=== PATIENT | female | born 1955 | race Caucasian/White ===

== ENCOUNTER 2020-03-19 12:08 | Outpatient (REF) | payer MEDICARE, SELFPAY | END 2020-03-19 12:09 | disposition home or self-care (01) | LOC: HO.HMGCLDS 12:08 | PROVIDERS: PCP Pediatrics; Visit Provider Internal Medicine | DX: Z20.828 Contact with and (suspected) exposure to other viral communicable diseases (principal) | CPT/HCPCS: 87635 ==

== ENCOUNTER 2020-11-16 14:06 | Outpatient (REF) | payer MEDICARE, SELFPAY ==
--- NOTE | ~2020-11-16 | MM_ITS ---
EXAMINATION: BONE DENSITOMETRY CLINICAL INDICATION: Screening for osteoporosis. COMPARISON: None (current study represents initial baseline exam). TECHNIQUE: Using a [employer]o DXA System (software version: 13.1) manufactured by [employer], dual-energy x-ray absorptiometry was performed of the lumbar spine and left hip. The images are of good technical quality. Summary results are attached. FINDINGS: AP SPINE L1-L4: BMD 0.985 g/cm2, Z-score -0.4, T-score -1.6, osteopenia. LEFT FEMUR, NECK: BMD 0.927 g/cm2, Z-score 0.5, T-score -0.8, normal. LEFT FEMUR, TOTAL: BMD 1.076 g/cm2, Z-score 1.5, T-score 0.5, normal. IDENTIFIED RISK FACTORS: Menopause, hysterectomy, rheumatoid arthritis, osteoporosis. HISTORY OF FRACTURE: None listed. MEDICATIONS: Calcium supplements or multivitamin, vitamin D. MM/XR DEXA axial skeleton IMPRESSION: 1. DIAGNOSIS: Osteopenia based on the lowest T-score value of -1.6 in the lumbar spine applying World Health Organization criteria. 2. 10-YEAR FRACTURE RISK PREDICTION, FRAX: Major osteoporotic fracture (clinical spine, forearm, hip or shoulder) 9.8%. Hip fracture 0.7%. 3. Treatment Recommendations: NOF guidelines recommend consideration for treatment in postmenopausal women and men age 50 and older presenting with the following: -A hip or vertebral (clinical or morphometric) fracture. -T-score less than or equal to -2.5 at the femoral neck or spine after appropriate evaluation to exclude secondary causes. -Low bone mass at the hip or spine and a 10-year fracture probability by FRAX of greater than or equal to 3% for hip fracture or greater than or equal to 20% for major osteoporotic fracture based on the [place] adapted WHO algorithm. 4. Other Recommendations: All treatment decisions require clinical judgment and consideration of individual patient factors, including patient preferences, comorbidities, previous drug use, risk factors not captured in the FRAX model (e.g. frailty, falls, vitamin D deficiency, increased bone turnover, interval significant decline in bone density) and possible under or overestimation of fracture risk by FRAX. Additional medical evaluation for secondary cause of low bone mineral density may be appropriate. FUTURE SCAN RECOMMENDATION: People with diagnosed cases of osteoporosis or at high risk for fracture should have regular bone mineral density tests. For patients eligible for Medicare, routine testing is allowed once every 2 years. The testing frequency can be increased to one year for patients who have rapidly progressing disease, those who are receiving or discontinuing medical therapy to restore bone mass, or have additional risk factors.
== END 2020-11-16 14:07 | disposition home or self-care (01) ==
LOC: HO.MAMMO 14:06
PROVIDERS: PCP Student in an Organized Health Care Education/Training Program; Visit Provider Student in an Organized Health Care Education/Training Program
DX: Z13.820 Encounter for screening for osteoporosis (principal); M85.80 Other specified disorders of bone density and structure, unspecified site; Z78.0 Asymptomatic menopausal state; M06.9 Rheumatoid arthritis, unspecified; Z98.890 Other specified postprocedural states; Z79.899 Other long term (current) drug therapy
CPT/HCPCS: 77080

== ENCOUNTER 2021-06-28 08:44 | Outpatient (REF) | payer MEDICARE, SELFPAY ==
--- NOTE | 2021-06-28 | PFT_ITS ---
Forced vital capacity 94%. FEV1 105%, FEV1/FVC ratio is 87. FEF 25-75 is 136% and MVV 97%. All these values are normal. No response to bronchodilator therapy was noted. Lung volumes, total lung capacity 92%. Residual volume 77%. Diffusion capacity 81%. CONCLUSION: Normal pulmonary function test and no evidence of obstructive or restrictive pulmonary disorder. MD LACHO Mathew/MODL / [id number]
== END 2021-06-28 08:45 | disposition home or self-care (01) ==
LOC: HO.RESP 08:44
PROVIDERS: Absent Provider Student in an Organized Health Care Education/Training Program; PCP Student in an Organized Health Care Education/Training Program; Visit Provider Family Medicine
DX: R05.9 Cough, unspecified (principal)
CPT/HCPCS: 94060; 94727; 94729

== ENCOUNTER 2022-04-26 11:32 | Outpatient (REF) | payer MEDICARE, SELFPAY ==
[2022-04-26 12:02] LABS: Binax Internal Control QC Valid; Binax Now Covid-19 Ag Negative (Negative)
[2022-04-26 14:10] LABS: Influenza A PCR NEGATIVE (Negative); Influenza B PCR NEGATIVE (Negative); Resp Syncy Virus RNA Qual PCR NEGATIVE (Negative); SARS COV2 PCR INHOUSE NEGATIVE (Negative)
== END 2022-04-26 11:33 | disposition home or self-care (01) ==
LOC: HO.HMGCLDS 11:32
PROVIDERS: Visit Provider Physician Assistant Medical
DX: R05.9 Cough, unspecified (principal); Z20.822 Contact with and (suspected) exposure to COVID-19
CPT/HCPCS: 0241U; 87811; C9803

== ENCOUNTER 2023-01-10 12:27 | Outpatient (AMB) | payer MEDICARE, SELFPAY ==
--- NOTE | 2023-01-10 13:57 | AM.OFFWIN_ITS ---
Intake Vital Signs 01/10/23 14:03 BP 152/80 H Blood Pressure Location Lt brachial Position Sitting Pulse 86 Pulse Source Pulse Oximeter Temp 99.8 F Temp Source Temporal Artery Scan Pulse Oximetry (%) 98 Oxygen Delivery Method Room Air Intake Visit Reasons: EST/sore throat Intake Note: pt is here for c/o sore throat Patient Tobacco Use Status: Never used Tobacco Allergies No Known Allergies Allergy (Verified 01/10/23 14:05) HPI EST/sore throat HPI Details Patient is a 67-year-old female who comes to the walk-in clinic complaining of severe sore throat for the last few days. She states that she does have allergy symptoms at baseline, and occasionally gets runny nose and postnasal drip. She uses fluticasone allergy medication as needed. She has some associated fatigue, but no nausea or vomiting, cough, shortness of breath or chest pain, weakness or dizziness, headache, anorexia, weakness, myalgias or other significant associated symptoms. No known sick contacts. She did not do home COVID test. [facility] Social History Patient Tobacco Use Status: Never used Tobacco Review of Systems Const All systems reviewed & are unremarkable except as noted in HPI and below Physical Exam Vital Signs: Last Vital Signs Temp 99.8 F 01/10/23 14:03 Pulse 86 01/10/23 14:03 BP 152/80 H 01/10/23 14:03 Pulse Ox 98 01/10/23 14:03 Oxygen Delivery Method Room Air 01/10/23 14:03 Const General: cooperative, healthy appearing, comfortable, no acute distress, alert, awake, Physically active and well groomed; No anxious, diaphoretic, intoxicated appearing or poor hygiene Nutritional Appearance: average body habitus Limitations: no limitations HEENT Head: Yes normal to inspection, Yes normocephalic and Yes atraumatic Ears: hearing grossly normal bilaterally, external ears normal, TM's normal bilaterally and EAC's normal General nose exam: Normal external nose present, Normal nares present, No nasal polyps present, Normal nasal mucous membranes and turbinates present, Normal septum present and No nasal discharge present Face and sinus: Yes normal facial exam, Yes sinuses nontender and Yes face symmetric Mouth: Normal oral and palatal mucosa present, lip normal and tongue normal Throat: Yes uvula midline, Yes abnormal tonsil (mildly erythematous bilaterally), No peritonsillar mass, No postnasal drainage, No uvular edema, No cobblestoning and Yes other (White exudate) Eyes General: appearance normal, both eyes and all related structures Neck Neck: Yes normal visual inspection and Yes lymphadenopathy Resp Effort & Inspection: normal respiratory effort and no cough Cardio Rate: regular rate Rhythm: regular rhythm Skin Other: Good color, warm and dry Psych Appearance: grossly normal Mental Status: mental status grossly normal Speech and movement: Normal speech and movement present Affect: normal affect Attitude: cooperative Thought process: Normal thought process present Insight: Good insight present (Psych) Judgement: Good judgement present (Psych) Results AMB Rapid Strep AMB Rapid Strep Negative Last Edit by Sergio Rubio CMA on 01/10/23 14 :21 Results Reviewed Results Reviewed: Laboratory Last Values Strep Scn Rapid Clinic Negative 01/10/23 14:17 Negative rapid strep. Negative rapid COVID Assessment & Plan Assessment & Plan (1) Pharyngitis: Code(s): J02.9 - Acute pharyngitis, unspecified Qualifiers: Pharyngitis/tonsillitis etiology: unspecified etiology Qualified Code(s): J02.9 - Acute pharyngitis, unspecified Plan: Likely strep pharyngitis due to erythematous and edematous pharynx with white exudates, and anterior cervical lymphadenopathy, despite negative rapid strep test and no fever. Negative rapid COVID test- patient elected to wait for results. Started patient on a course of Augmentin- she will follow up if symptoms persist or worsen. Orders: Orders [facility] Covid-19 Ag 01/10/23 Z20.822 - Contact with and (suspected) exposure to COVID-19 AMB Rapid Strep Screen 01/10/23 Z13.9 - Encounter for screening, unspecified Medications: New amoxicillin-pot clavulanate 875-125 mg 1 tab PO BID 10 tabs 0RF Coding Level of Care Code Est Pt Level 4 (18458) Diagnoses Pharyngitis J02.9 Pharyngitis/tonsillitis etiology: unspecified etiology
[2023-01-10 14:03] VITALS: BP 152/80; PULSE 86; TEMP 37.7; O2SAT 98
== END 2023-01-10 14:48 | disposition home or self-care (01) ==
PROVIDERS: PCP Student in an Organized Health Care Education/Training Program; Visit Provider Physician Assistant Medical
DX: J02.9 Acute pharyngitis, unspecified (principal)
CPT/HCPCS: 87880; 99214

== ENCOUNTER 2023-01-10 14:13 | Outpatient (REF) | payer MEDICARE, SELFPAY ==
[2023-01-10 14:40] LABS: Binax Internal Control QC Valid; Binax Now Covid-19 Ag Negative (Negative); Binax Performed by: HO.BONILM
== END 2023-01-10 14:14 | disposition home or self-care (01) ==
LOC: HO.HMGCLDS 14:13
PROVIDERS: PCP Student in an Organized Health Care Education/Training Program; Visit Provider Physician Assistant Medical
DX: Z20.822 Contact with and (suspected) exposure to COVID-19 (principal)
CPT/HCPCS: 87811; C9803

== ENCOUNTER 2023-05-14 14:07 | Outpatient (REF) | payer MEDICARE, SELFPAY | END 2023-05-14 14:08 | disposition home or self-care (01) | LOC: HO.CHCLNP 14:07 | PROVIDERS: Visit Provider Internal Medicine | DX: R10.2 Pelvic and perineal pain (principal); R31.29 Other microscopic hematuria; R35.0 Frequency of micturition | CPT/HCPCS: 87086 ==

== ENCOUNTER 2023-07-08 11:26 | Outpatient (REF) | payer MEDICARE, SELFPAY ==
[2023-07-08 14:36] LABS: MANUAL DIFF FLAG NO
[2023-07-08 14:45] LABS: Basophils Absolute Auto 0.1 X10*3/uL (0.0-0.2); Basophils Percent Auto 1.1 % (0-2); Eosinophils Absolute Auto 0.2 X10*3/uL (0.0-0.4); Eosinophils Percent Auto 2.9 % (0-4); Hematocrit 42.3 % (37.0-47.0); Hemoglobin 14.1 g/dl (12.0-16.0); Imm Gran Abs Auto 0.01 X10*3/uL (0.00-0.03); Imm Gran Pct Auto 0.2 % (0.0-0.4); Lymphocytes Absolute Auto 2.7 X10*3/uL (1.2-4.9); Lymphocytes Percent Auto 48.5 % (20-40); Mean Corpuscular HGB Conc 33.3 g/dl (31.0-35.0); Mean Corpuscular Hemoglobin 30.5 pg (27.0-33.0); Mean Corpuscular Volume 91.6 fL (80.0-98.0); Monocytes Absolute Auto 0.4 X10*3/uL (0.1-1.2); Monocytes Percent Auto 7.2 % (2-11); Neutrophils Absolute Auto 2.2 x10*3/uL (2.0-8.3); Neutrophils Percent Auto 40.1 % (45-73); Platelet Count 293 X10*3/uL (160-400); Red Blood Count 4.62 X10*6/uL (4.20-5.50); Red Cell Distribution Width 12.9 % (11.0-16.0); White Blood Count 5.5 X10*3/uL (4.8-10.8)
[2023-07-08 15:13] LABS: Alanine Aminotransferase 38 U/L (0-31); Albumin Level 4.2 g/dL (3.5-5.0); Alkaline Phosphatase 75 U/L (39-117); Anion Gap 11 (12-20); Aspartate Amino Transferase 25 U/L (5-31); Bilirubin Direct 0.2 mg/dL (0.0-0.5); Bilirubin Total 0.5 mg/dL (0.0-1.0); Blood Urea Nitrogen 14 mg/dL (9-16); Calcium 9.2 mg/dL (8.4-10.2); Carbon Dioxide 25 mmol/L (22-29); Chloride 109 mmol/L (96-108); Cholesterol 219 mg/dL (<200); Estimated Glomerular Filt Rate > 60; Glucose Random 102 mg/dL (60-115); HDL Cholesterol 61 mg/dL (>40); LDL Cholesterol Calculated 133 mg/dL (<100); Potassium 3.6 mmol/L (3.3-5.1); Sodium 141 mmol/L (135-145); Triglycerides 128 mg/dL (<150)
[2023-07-08 15:18] LABS: Thyroid Stimulating Hormone 1.99 uIU/mL (0.32-4.0); Vitamin D 25-OH Total 51.7 ng/mL (>30)
[2023-07-08 15:28] LABS: Vitamin B12 549 pg/mL (200-900)
== END 2023-07-08 11:27 | disposition home or self-care (01) ==
LOC: HO.CHCLDS 11:26
PROVIDERS: Visit Provider Student in an Organized Health Care Education/Training Program
DX: R53.83 Other fatigue (principal); E55.9 Vitamin D deficiency, unspecified; E78.5 Hyperlipidemia, unspecified
CPT/HCPCS: 36415; 80048; 80061; 80076; 82306; 82607; 84443; 85025

== ENCOUNTER 2023-08-31 14:25 | Outpatient (AMB) | payer MEDICARE, SELFPAY ==
[2023-08-31 14:27] VITALS: TEMP 36.1; O2SAT 98
--- NOTE | 2023-08-31 14:27 | AM.OFFWIN_ITS ---
Intake Vital Signs 08/31/23 14:27 Temp 97.0 F Temp Source Temporal Artery Scan Pulse Oximetry (%) 98 Oxygen Delivery Method Room Air Intake Visit Reasons: EP Sinus pressure pain (lobby) Intake Note: pt is here today for sinus pressure started 4 days Patient Tobacco Use Status: Never used Tobacco Allergies No Known Allergies Allergy (Verified 08/31/23 14:30) Do you need a note to return to daycare/school/sports/work: No HPI HPI Comments History of Present Illness Details Patient presents to the walk in for 4 days cough, congestion, itchy and watery eyes Denies fever, chest pain, shortness of breath, palpitations, syncope, weakness Denies headache, ear pain, sore throat. Has been taking OTC medications with minimal improvement. [facility] Social History Patient Tobacco Use Status: Never used Tobacco Review of Systems Const All systems reviewed & are unremarkable except as noted in HPI and below Physical Exam Vital Signs: Last Vital Signs Temp 97.0 F 08/31/23 14:27 Pulse Ox 98 08/31/23 14:27 Oxygen Delivery Method Room Air 08/31/23 14:27 General: awake, alert, oriented. Answers questions appropriately. Fully engaged in examination. Skin: warm, dry, intact HEENT: TMs intact bilaterally, no redness. Posterior pharynx without erythema or exudate. Sclera without icterus or injection. Nontender to percussion over fron antonio and maxillary sinuses Cardiac: External chest normal in appearance. Respiratory: +cough. LSCTAB. Abdomen: without gross distension. Neurological: Oriented to person, place, time and situation. Thought process intact. Psychiatric: Appropriate mood and affect. Good judgment and insight. Assessment & Plan Assessment & Plan (1) Allergic rhinitis: Code(s): J30.9 - Allergic rhinitis, unspecified Plan Cetirizine 10 mg p.o. daily Benzonatate 100mg po bid as needed Rest, drink plenty of fluids, tylenol or motrin as needed. Follow up with pcp or in clinic for any new or worsening symptoms. Medications: New cetirizine 10 mg PO DAILY 30 tabs 0RF benzonatate 100 mg PO BID PRN 20 caps 0RF cough Coding Level of Care Code Est Pt Level 3 (78897) Diagnoses Allergic rhinitis J30.9
== END 2023-08-31 15:20 | disposition home or self-care (01) ==
PROVIDERS: PCP Student in an Organized Health Care Education/Training Program; Visit Provider Registered Nurse Emergency
DX: J30.9 Allergic rhinitis, unspecified (principal)
CPT/HCPCS: 99213

== ENCOUNTER 2023-10-28 11:27 | Outpatient (REF) | payer MEDICARE, SELFPAY ==
[2023-10-28 15:15] LABS: Alanine Aminotransferase 38 U/L (0-31); Albumin Level 4.2 g/dL (3.5-5.0); Alkaline Phosphatase 68 U/L (39-117); Anion Gap 11 (12-20); Aspartate Amino Transferase 25 U/L (5-31); Bilirubin Direct 0.2 mg/dL (0.0-0.5); Bilirubin Total 0.4 mg/dL (0.0-1.0); Blood Urea Nitrogen 13 mg/dL (9-16); Calcium 9.6 mg/dL (8.4-10.2); Carbon Dioxide 26 mmol/L (22-29); Chloride 107 mmol/L (96-108); Cholesterol 209 mg/dL (<200); Estimated Glomerular Filt Rate > 60; Glucose Random 104 mg/dL (60-115); HDL Cholesterol 63 mg/dL (>40); LDL Cholesterol Calculated 125 mg/dL (<100); Potassium 3.9 mmol/L (3.3-5.1); Sodium 140 mmol/L (135-145); Total Protein 6.9 g/dL (6.5-8.0); Triglycerides 109 mg/dL (<150)
== END 2023-10-28 11:28 | disposition home or self-care (01) ==
LOC: HO.CHCLDS 11:27
PROVIDERS: Visit Provider Student in an Organized Health Care Education/Training Program
DX: E78.00 Pure hypercholesterolemia, unspecified (principal)
CPT/HCPCS: 36415; 80048; 80061; 80076

== ENCOUNTER 2024-02-18 11:16 | Outpatient (AMB) | payer MEDICARE, SELFPAY ==
--- NOTE | 2024-02-18 12:21 | MHC.OFFWIV ---
Intake Vital Signs 02/18/24 13:29 Height 5 ft 4 in Weight 178 lb BMI 30.6 BP 134/80 Blood Pressure Location Rt brachial Position Sitting Pulse 72 Pulse Source Pulse Oximeter Temp 98.3 F Temp Source Oral Pulse Oximetry (%) 97 Oxygen Delivery Method Room Air Intake Visit Reasons: EP Lt ear ringing, bubbling feeling Intake Note: pt c/o LT ear ringing, bubbling feeling. Started 2 weeks ago after flight Patient Tobacco Use Status: Never used Tobacco Allergies No Known Allergies Allergy (Verified 02/18/24 13:30) Do you need a note to return to daycare/school/sports/work: No HPI EP Lt ear ringing, bubbling feeling HPI Details This note is constructed using voice recognition software. While every effort has been made to ensure accuracy, soldering machine operator errors may have been included. The patient is a 68 year old female who presents to the clinic today with bubbling sensation in her left ear. She notes a longstanding history of allergies, and has not yet treated her allergies this season. She notes that typically when she uses a nasal spray or an allergy pill it does help. She wanted to make sure that her ear did not have an infection or any other problem given that she had this bubbling sensation which is slightly different from the normal allergy symptoms she gets. She denies fever, chills, cough, shortness of breath, difficulty hearing, and pain. [facility] Social History Patient Tobacco Use Status: Never used Tobacco Review of Systems Const All systems reviewed & are unremarkable except as noted in HPI and below Physical Exam Vital Signs: Last Vital Signs Temp 98.3 F 02/18/24 13:29 Pulse 72 02/18/24 13:29 BP 134/80 02/18/24 13:29 Pulse Ox 97 02/18/24 13:29 Oxygen Delivery Method Room Air 02/18/24 13:29 BMI result Body Mass Index 30.6 Const General: cooperative, healthy appearing, comfortable and no acute distress Orientation/consciousness: patient oriented x3 Limitations: no limitations HEENT Head: Yes normal to inspection Ears: hearing grossly normal bilaterally, external ears normal and TM abnormal retracted General nose exam: Normal external nose present, No nasal discharge present and Abnormal mucous membranes and turbinates present boggy and pale Face and sinus: Yes normal facial exam and Yes sinuses nontender Mouth: Normal oral and palatal mucosa present and moist mucous membranes Throat: Yes tonsils normal, Yes uvula midline, Yes posterior oropharynx abnormal (Erythema), Yes postnasal drainage and Yes cobblestoning Eyes General: appearance normal, both eyes and all related structures Neck Neck: Yes normal visual inspection Resp Effort & Inspection: normal respiratory effort, able to speak in complete sentences, Actively coughing, no respiratory distress, not tachypneic, no tripod positioning and no use of accessory muscles Auscultation: clear to auscultation bilaterally Cardio Rate: regular rate Rhythm: regular rhythm Heart sounds: normal S1 and S2 Skin General skin exam: no rashes or lesions noted Neuro General: patient oriented x3 Extrem General: Yes normal to inspection and Yes no clubbing, cyanosis or edema Assessment & Plan Assessment & Plan (1) Allergic rhinitis: Code(s): J30.9 - Allergic rhinitis, unspecified Qualifiers: Allergic rhinitis trigger: unspecified Allergic rhinitis seasonality: unspecified Qualified Code(s): J30.9 - Allergic rhinitis, unspecified Plan: Supportive measures encouraged and reviewed. Advised patient to try a Flonase nasal spray and second-generation antihistamine such as Zyrtec, Claritin, Kaila or similar. Advised consideration of sinus rinse if needed. Advised patient to follow up with primary care provider with worsening or failure to resolve. Plan See above for full details and plan. Coding Level of Care Code Est Pt Level 3 (20301) Diagnoses Allergic rhinitis, unspecified seasonality, unspecified trigger J30.9 Allergic rhinitis trigger: unspecified Allergic rhinitis seasonality: unspecified
[2024-02-18 13:29] VITALS: BP 134/80; PULSE 72; TEMP 36.8; O2SAT 97; BMI 30.6
== END 2024-02-18 14:24 | disposition home or self-care (01) ==
PROVIDERS: PCP Student in an Organized Health Care Education/Training Program; Visit Provider Registered Nurse
DX: J30.9 Allergic rhinitis, unspecified (principal)

== ENCOUNTER → 2024-02-18 11:16 | Outpatient (BNVA) | payer MEDICARE, SELFPAY | PROVIDERS: PCP Student in an Organized Health Care Education/Training Program | DX: J30.9 Allergic rhinitis, unspecified (principal) | CPT/HCPCS: 99212 ==

== ENCOUNTER 2024-05-03 10:35 | Outpatient (REF) | payer MEDICARE, SELFPAY ==
[2024-05-03 14:27] LABS: Alanine Aminotransferase 46 U/L (0-31); Albumin Level 4.3 g/dL (3.5-5.0); Alkaline Phosphatase 65 U/L (39-117); Anion Gap 9 (12-20); Aspartate Amino Transferase 30 U/L (5-31); Bilirubin Direct 0.2 mg/dL (0.0-0.5); Bilirubin Total 0.6 mg/dL (0.0-1.0); Blood Urea Nitrogen 16 mg/dL (9-16); Calcium 9.6 mg/dL (8.4-10.2); Carbon Dioxide 28 mmol/L (22-29); Chloride 106 mmol/L (96-108); Cholesterol 213 mg/dL (<200); Estimated Glomerular Filt Rate > 60; Glucose Random 118 mg/dL (60-115); HDL Cholesterol 58 mg/dL (>40); LDL Cholesterol Calculated 134 mg/dL (<100); Sodium 139 mmol/L (135-145); Total Protein 6.9 g/dL (6.5-8.0); Triglycerides 108 mg/dL (<150)
== END 2024-05-03 10:36 | disposition home or self-care (01) ==
LOC: HO.CHCLDS 10:35
PROVIDERS: Visit Provider Student in an Organized Health Care Education/Training Program
DX: E78.00 Pure hypercholesterolemia, unspecified (principal)
CPT/HCPCS: 36415; 80048; 80061; 80076

== ENCOUNTER 2024-05-20 11:04 | Outpatient (AMB) | payer MEDICARE, SELFPAY ==
--- NOTE | 2024-05-20 11:28 | MHC.OFFWIV ---
Intake Vital Signs 05/20/24 11:29 Weight 180 lb 6 oz BP 128/80 Blood Pressure Location Rt brachial Position Sitting Pulse 82 Pulse Source Pulse Oximeter Pulse Oximetry (%) 98 Oxygen Delivery Method Room Air Intake Visit Reasons: EP-lt leg swollen Intake Note: Patient here for left leg pain, she states she fell out of a chair yesterday while taking out decorations. Patient Tobacco Use Status: Never used Tobacco Allergies No Known Allergies Allergy (Verified 05/20/24 11:30) Do you need a note to return to daycare/school/sports/work: No HPI HPI Comments History of Present Illness Details History of Present Illness The patient is a 68-year-old female presenting with concerns following a fall. The incident occurred yesterday when the patient fell out of her chair while reaching for items and made contact with a stove, resulting in a contusion. The patient reports notable bruising on the site of impact, which she describes as a pretty good bruise. She applied ice immediately, which helped reduce the swelling by today. The patient denies any head injury or loss of consciousness during the fall and confirms that she is not taking any blood thinners. She was able to ambulate immediately after the fall and describes the pain as manageable, reporting that it alleviates further with Tylenol. The swelling initially increased upon standing but diminished following the application of ice. She denies any current ankle pain and mentions that she's been using a warm cloth and heating pad for relief. The patient sought reassurance regarding potential injuries and inquired about the use of anti-inflammatory medication. Physical Exam General: Cooperative, healthy appearing, comfortable, no acute distress and well developed Orientation: Patient oriented x3 Limitations: No limitations Head: Normal to inspection Ears: Hearing grossly normal bilaterally Nose: Normal external nose present Face and sinus: Normal facial exam Eyes: Appearance normal, both eyes and all related structures Neck: Normal visual inspection and Yes full ROM Respiratory: Normal respiratory effort and able to speak in complete sentences. Skin: Bruise noted on the leg, no rashes or other lesions noted Neuro: Patient oriented x3 Extremities: Normal to inspection, left lower extremity, no TTP along tib/fib, 6cm x 4cm area of ecchymosis noted, normal gait PFSH Social History Patient Tobacco Use Status: Never used Tobacco Review of Systems Const All systems reviewed & are unremarkable except as noted in HPI and below Physical Exam Vital Signs: Last Vital Signs Pulse 82 05/20/24 11:29 BP 128/80 05/20/24 11:29 Pulse Ox 98 05/20/24 11:29 Oxygen Delivery Method Room Air 05/20/24 11:29 Assessment & Plan Assessment & Plan (1) Traumatic ecchymosis of left lower leg: Code(s): S80.12XA - Contusion of left lower leg, initial encounter Qualifiers: Encounter type: initial encounter Qualified Code(s): S80.12XA - Contusion of left lower leg, initial encounter Plan: - Recommend continued use of cold compress to manage swelling. - Advise the use of Aleve naproxen as an anti-inflammatory agent. If opting for Advil ibuprofen, instruct patient to take 600 mg every six hours, ensuring the tablets are 200 mg strength. - Encourage the application of warm compresses to assist with bruise absorption over time. - Suggest using compression wraps to aid in swelling reduction, as patient expressed interest. Lucas wrapped her lower leg for her. - Reassure that bruising is likely to take several weeks to resolve and continue monitoring for improvement. Patient was informed and verbally consented to the use of an ambient scribe for clinic note documentation during this visit. Coding Level of Care Code New Pt Level 3 (54379) Diagnoses Traumatic ecchymosis of left lower leg, initial encounter S80.12XA Encounter type: initial encounter
[2024-05-20 11:29] VITALS: BP 128/80; PULSE 82; O2SAT 98
== END 2024-05-20 11:58 | disposition home or self-care (01) ==
PROVIDERS: PCP Student in an Organized Health Care Education/Training Program; Visit Provider Physician Assistant
DX: S80.12XA Contusion of left lower leg, initial encounter (principal)

== ENCOUNTER → 2024-05-20 11:04 | Outpatient (BNVA) | payer MEDICARE, SELFPAY | PROVIDERS: PCP Student in an Organized Health Care Education/Training Program; Visit Provider Physician Assistant | DX: S80.12XA Contusion of left lower leg, initial encounter (principal); W07.XXXA Fall from chair, initial encounter; Y93.9 Activity, unspecified; Y92.9 Unspecified place or not applicable; Y99.9 Unspecified external cause status | CPT/HCPCS: 99202 ==

== ENCOUNTER 2024-05-30 11:28 | Outpatient (AMB) | payer MEDICARE, SELFPAY ==
--- NOTE | 2024-05-30 13:38 | MHC.OFFWIV ---
Intake Vital Signs 05/30/24 13:41 Height 5 ft 4 in Weight 182 lb BMI 31.2 BP 122/78 Blood Pressure Location Lt brachial Position Sitting Pulse 81 Pulse Source Pulse Oximeter Pulse Oximetry (%) 98 Oxygen Delivery Method Room Air Intake Visit Reasons: EP-lt leg lump [phone] Intake Note: Patient is here to follow up on her left leg bruising,swelling and hard. Patient Tobacco Use Status: Never used Tobacco Allergies No Known Allergies Allergy (Verified 05/30/24 13:42) Do you need a note to return to daycare/school/sports/work: No HPI EP-lt leg lump [phone] HPI Details This note is constructed using voice recognition software. While every effort has been made to ensure accuracy, cement despatch operator errors may have been included. The patient is a 68 year old female who presents to the clinic today with left leg bruising. She was last seen in the clinic 05/20/2024 after a fall with ecchymosis to the left lower extremity. She reports that the bruising persists and she has a lump, and wanted to make sure that this was safe for her to go dancing tomorrow at a new [employer]. She denies any new symptoms such as pain, difficulty walking. She notes that there was swelling to the leg which has completely resolved. [facility] Social History Patient Tobacco Use Status: Never used Tobacco Review of Systems Const All systems reviewed & are unremarkable except as noted in HPI and below Physical Exam Vital Signs: Last Vital Signs Pulse 81 05/30/24 13:41 BP 122/78 05/30/24 13:41 Pulse Ox 98 05/30/24 13:41 Oxygen Delivery Method Room Air 05/30/24 13:41 BMI result Body Mass Index 31.2 Const General: cooperative, healthy appearing, comfortable, no acute distress and well developed Orientation/consciousness: patient oriented x3 Limitations: no limitations Resp Effort & Inspection: normal respiratory effort and able to speak in complete sentences Skin General skin exam: no rashes or lesions noted Neuro General: patient oriented x3 Extrem Other: Left lower extremity echymosis in large area covering anterior LLE with hematoma. Ankle, knee FROM. No areas TTP, no edema. Distal neurovascular exam intact. General: Yes normal to inspection Assessment & Plan Assessment & Plan (1) Traumatic ecchymosis of left lower leg: Code(s): S80.12XA - Contusion of left lower leg, initial encounter Qualifiers: Encounter type: initial encounter Qualified Code(s): S80.12XA - Contusion of left lower leg, initial encounter Plan: Warm compresses recommended to help with absorption of ecchymosis. Reassured patient that she will likely continue to see symptoms for the next several weeks to months based on the extent of the ecchymosis. Advised patient that she should proceed with dancing, and should she develop any concerning symptoms she should rest. Plan See above for full details and plan. Coding Level of Care Code Est Pt Level 3 (20366) Diagnoses Traumatic ecchymosis of left lower leg, initial encounter S80.12XA Encounter type: initial encounter
[2024-05-30 13:41] VITALS: BP 122/78; PULSE 81; O2SAT 98; BMI 31.2
== END 2024-05-30 14:00 | disposition home or self-care (01) ==
PROVIDERS: PCP Student in an Organized Health Care Education/Training Program; Visit Provider Registered Nurse
DX: S80.12XA Contusion of left lower leg, initial encounter (principal)

== ENCOUNTER → 2024-05-30 11:28 | Outpatient (BNVA) | payer MEDICARE, SELFPAY | PROVIDERS: PCP Student in an Organized Health Care Education/Training Program; Visit Provider Registered Nurse | DX: S80.12XA Contusion of left lower leg, initial encounter (principal) | CPT/HCPCS: 99212 ==

== ENCOUNTER 2025-02-17 15:37 | Outpatient (REF) | payer MEDICARE, SELFPAY ==
--- OUTSIDE RECORDS SUMMARY | 2025-02-17 15:30 | XMS_ITS | Encounter Summary ---
Author Organization [employer] Address [address] [facility] [address] [place] [address] Care Team Providers Care Sleeve Machine Tender Name Role Phone Emilie Angel MD Primary Care Provider [phone] Encounter Details Date Type Department Care Team ([facility] st Contact Info) Description 02/17/2025 3:30 PM EDT Office Visit [facility] PEDS [address] [place], [place] [phone] Se Paris MD [address] [place], [place] [phone] Senile purpura (CMS/HCC) (Primary Dx) Social History Tobacco Use Types Packs/Day Years Used Date Smoking Tobacco: Never Smokeless Tobacco: Never Alcohol Use Standard Drinks/Week Comments Never 0 (1 standard drink = 0.6 oz pur e alcohol) Housing Stability Answer Date Recorded What is your housing situation today? I have awa sing 10/16/[address] you li [...] the past 12 months, has t he [employer], oil or water company threatened to shut [...] 3:03 PM EDT documented in this encounter Plan of Treatment Scheduled Orders Name Type Priority Associated Diagnoses Orde r Schedule CBC auto differential Lab Routine Senile purpura (CMS/HCC) Expected: 02/17/2025 (Approximate), Expires: 02/17/2026 Prothrombin Time-INR Lab Routine Senile purpura (CMS/HCC) Expected: 02/17/2025, Expires: 02/17/2026 Hepatic Function Panel Lab Routine Senile purpura (CMS/HCC) Expected: 02/17/2025 (Approximate), Expires: 02/17/2026 documented as of this encounter Visit Diagnoses Diagnosis Senile purpura (CMS/HCC)- Primary Other nonthrombocytopenic purpuras documented in this encounter Care Teams Sleeve Machine Tender Relationship Specialty Start Date End Date Emilie Angel MD [address] [place] [phone] PCP - General Family Medicine 08/26/19 documented as of this encounter
--- OUTSIDE RECORDS SUMMARY | 2025-02-17 15:42 | XMS_ITS | Clinical Summary ---
Author Organization [employer] Address [address] [facility] 7t [place] [address] Care Team Providers Care Forestry Engineer Name Role Phone Emilie Angel MD Primary Care Provider [phone] Allergies Active Allergy Reactions Criticality Noted Date Comments Pollen Extract 09/04/2023 Medications omeprazole (PriLOSEC) [address] capsuleMacieicamaurice ns:Gastroesophag eal reflux disease without esophagitis TAKE 1 CAPSULE BY MOUTH EVERY DAY BEFORE A MEAL 90 capsule 1 07/15/2022 Active Blood Pressure kitIndications:B lood pressure check To check the BP daily 1 kit 01/14/2023 Active loratadine (Claritin) 10 MG tablet TAKE 1 TABLET BY MOUTH EVERY DAY IN THE MORNING 90 tablet 09/29/2023 Active hydrOXYzine HCl (Atarax) 10 MG tablet Take 1 tablet (10 mg) by mouth every 6 (six) hours if needed for anxiety. 90 tablet 1 05/03/2024 Active cholecalciferol (Vitamin D-3) 25 MCG (1000 UT) capsule Take 1 capsule (25 mcg) by mouth Once per day. 30 capsule 11 05/03/2024 05/03/20 25 Active simvastatin (Zocor) 20 MG tabletIndication s:Hypercholester emia TAKE 1 TABLET BY MOUTH EVERY DAY 90 tablet 5 05/03/2024 Active hydroCHLOROthiaz carlin (HYDRODiuril) 25 MG tablet Take 1 tablet (25 mg) by mouth Once per day. 30 tablet 11 09/27/2024 09/28/19 26 Active sertraline (Zoloft) 25 MG tablet Take 1 tablet (25 mg) by mouth Once per day. 30 tablet 11 09/27/2024 09/28/19 26 Active celecoxib (CeleBREX) 50 MG capsule TAKE 1 CAPSULE BY MOUTH 2 TIMES DAILY 60 capsule 12/27/2024 Active Active Problems Problem Noted Date Diagnosed Date Obesity 09/04/2023 Assessment & Plan (09/05/2023 1:55 AM EDT): Discussed calorie deficit, recommended reduction of 20-30% of maintenance calories; probation officer referral offered. Recommended to decrease soda and sugary beverage consumption. Recommended at least 20 g per meal of protein to assist with satiety. Recommended at least 150 min/week of moderate intensity exercise. Patient would like a referral to Sanitarian Aide Bilateral impacted cerumen 09/04/2023 Assessment & Plan (09/04/2023 12:59 PM EDT): Will send debrox gtt and will schedule appt with nursing for lavage. Hyperlipidemia 11/26/2022 Malignant neoplasm of upper-outer quadrant of fe male breast 07/15/2010 Resolved Problems Problem Noted Date Diagnosed Date Resolved Date Upper respiratory tract infection 09/04/2023 05/03/2024 Assessment & Plan (09/04/2023 12:59 PM EDT): Will send trial of loratidine. Encounters Date Type Department Care Team Description 02/17/2025 3:30 PM EDT Office Visit [facility] [address] [place] [address] Se Paris MD Senile purpura ([facility]/HCC) (Primary Dx) 02/17/2025 Travel 02/13/2025 Telephone [facility] [address] [place] [address] Emilie Angel MD Nurse Triage 12/26/2024 Refill [facility] [address] [place] [address] Emilie Angel MD 12/22/2024 Telephone [facility] [address] [place] [address] Emilie Angel MD Hypertension 12/15/2024 Telephone [facility] [address] [place] [address] Emilie Angel MD 12/08/2024 2:00 PM EDT Clinical Support [facility] [address] [place] [address] Shahla Drake RN Obesity due to excess calories without serious comorbidity, unspecified class [E66.09] 12/08/2024 Travel 11/29/[address] [facility] MED [facility] PEDS [address] [facility] [place] [address] Emilie Angel MD 11/24/[address] [facility] [address] [place] [address] Emilie Agnel MD from Last 3 Months Immunizations Immunization Administration Dates Next Due INFLUENZA VACCINE QUADRIVALE NT RECOMBINANT PRESERVATIVE FREE RIV4 02/24/2020 Influenza Injectable Quadriv alant Preservative Free IIV4 MDCK 02/20/2017 Influenza Quadrivalent Adjuvanted 03/13/2022 Influenza injectable quadrivalent preservative f ree 04/05/2018 Influenza, IIV3, injectable 03/24/2016, 4 Pneumococcal Conjugate PCV 13 09/20/2021 Td (adult), unspecified 05/01/2004 Tdap 10/28/2023,10/01/2012 Zoster, live 07/18/2015 Social History Tobacco Use Types Packs/Day Years Used Date Smoking Tobacco: Never Smokeless Tobacco: Never Tobacco Cessation:Counseling Given: Not Answered Alcohol Use Standard Drinks/Week Comments Never 0 (1 standard drink = 0.6 oz pur e alcohol) Housing Stability Answer Date Recorded What is your housing situation today? I have awa kahn 10/16/[address] you li [...] Orientation Straight 03/31/2022 10 :36 AM EDT Last Filed Vital Signs Vital Sign Reading [...] Mass Index 30.65 02/17/2025 3:03 PM EDT Plan of Treatment Health Maintenance Due Date Last Done Comments CT Colonography 1954 Colonoscopy 1954 Depression Screening 1954 FIT 1954 Sigmoidoscopy 1954 Zoster Vaccines (2 of 3) 09/12/2015 07/18/2015 Pneumococcal Vaccine: 50+ Years (2 of 2 - PPSV23) 09/20/2022 09/20/2021 FOBT 11/09/2024 11/10/2023 COVID-19 Vaccine (4 - season) 2025 03/13/2022, 07/26/2020, 07/05/2020 Influenza Vaccine (#1) 2025 , 02/24/2020, 04/05/2018, Additional history exists Mammogram 04/19/2025 04/19/2024, 04/01, 11/16/2020 Alcohol/Substance Use Screening 09/27/2025 09/27/2024 SDOH Screening 09/27/2025 09/27/2024 Tobacco Screening 09/27/2025 09/27/2024 Colorectal Cancer Screening 11/09/2026 FIT DNA/Cologuard 11/09/2026 11/10/2023 Lipid Panel 05/03/2029 05/03/2024, 09/30, 07/08/2023, Additional history exists RSV Patients and Patients Aged 60 years or older (1 - 1-dose 75+ series) 2029 DTaP/Tdap/Td Vaccines (3 - Td or Tdap) 10/27/2033 10/28/2023, 10/01/2012, 05/01/2004 Hepatitis C Screening Completed 11/26/2022, 021 HIB Vaccines Aged Out No longer eligi ble based on patient's age to complete this topic HPV Vaccines Aged Out No longer eligi ble based on patient's age to complete this topic Hepatitis A Vaccines Aged Out No long er eligible based on patient's age to complete this topic Hepatitis B Vaccines Aged Out No long er eligible based on patient's age to complete this topic IPV Vaccines Aged Out No longer eligi ble based on patient's age to complete this topic Meningococcal B Vaccine Aged Out No l onger eligible based on patient's age to complete this topic Meningococcal Vaccine Aged Out No ana sena eligible based on patient's age to complete this topic RSV under 20 months Aged Out No longe r eligible based on patient's age to complete this topic Rotavirus Vaccines Aged Out No longer eligible based on patient's age to complete this topic Procedures Procedure Name Priority Date/Time Associated Diagnosis Comments LIPID PANEL, STANDARD Routine 05/03/2024 10:37 AM EST Hypercholesteremia HM MAMMOGRAPHY Routine 04/19/2024 9:25 AM EST LAB COLOGUARD COLON CANCER SCREEN Routine 11/10/2023 11:30 AM EDT Encounter for screening for malignant neoplasm of colon HEPATITIS C AB W/REFL TO HCV RNA, QN, PCR Routine 11/26/2022 10:23 AM EDT PE (physical exam), annual from Last 3 Months or Most Recently Relevant to Health Maintenance Results * (ABNORMAL) Lipid Panel, Standard (05/03/2024 10:37 AM EST) Triglycerides 108 <150 mg/dL [facility] Comment:Desirable Triglyceri de: less than 150 mg/dLBorderline High Triglyceride 150-199 mg/dLHigh Triglyceride: 200-499 mg/dLVery High Triglyceride: greater than or equal to 5OO mg/dL Cholesterol 213(H) <200 mg/dL [facility] Comment:Desirable Cholestero l: less than 200 mg/dLBorderline High Cholesterol: 200-239 mg/dLHigh Cholesterol: greater than 239 mg/dL LDL Cholesterol Calculated 134(H) <100 mg/dL [facility] Comment:Desirable LDL: less than 100 mg/dLNear Optimal/Above Optimal LDL: 110- 129 mg/dLBorderline High LDL: 130-159 mg/dLHigh LDL: 160-189 mg/dLVery High LDL: greater than or equal to 190 mg/dL HDL Cholesterol 58 >40 mg/dL [facility] Comment:Desirable HDL: great er than 40 mg/dL Note: This HDL assay may give artificially low results in patients with liver disease. Blood Venous blood specimen / Unknown 05/03/2024 10:37 AM EST 05/03/2024 1:35 PM EST Emilie Angel MD LAB BLOOD ORDERABLES Final Resul t [facility] [address] [place] [phone] * Hm Mammography (04/19/2024 9:25 AM EST) Anatomical Region Laterality Modality Other Sean Provider HEALTH MAINTENANCE Final Result * Cologuard?? colon cancer screening (11/10/2023 11:30 AM EDT) Cologuard Result Negative Negative 11/13/19 24 6:15 PM EDT [facility] (CLIA #:[id number]) Comment: NEGATIVE TEST RESULT. A negative Cologuard result indicates a low likelihood that a colorectal cancer (CRC) or advanced adenoma (adenomatous polyps with more advanced pre-malignant features) is present. The chance that a person with a negative Cologuard test has a colorectal cancer is less than 1 in 1500 (negative predictive value >99.9%) or has an advanced adenoma is less than 5.3% (negative predictive value 94.7%). These data are based on a prospective cross-sectional study of 10,000 individuals at average risk for colorectal cancer who were screened with both Cologuard and colonoscopy. (Sandy Peoples. et al, N Engl J Med 2014;370(14):4867-7983) The normal value (reference range) for this assay is negative. COLOGUARD RE-SCREENING RECOMMENDATION: Periodic colorectal cancer screening is an important part of preventive healthcare for asymptomatic individuals at average risk for colorectal cancer. Following a negative Cologuard result, the [place] [employer] and U.S. Multi-Society Task Force screening guidelines recommend a Cologuard re-screening interval of 3 years. References: [place] [employer] Guideline for Colorectal Cancer Screening: https://www.cancer.org/cancer/yuzve-frvfxt-twpghr/rrzxtwayd-oumgexvjy-lnwfonn/ac s-rec ommendations.html.; Rafal QUIJANO, Abraham PEREZ, Estela VieraK, Colorectal Cancer Screening: Recommendations for Physicians and Patients from the U.S. Multi-Society Task Force on Colorectal Cancer Screening , Am J Gastroenterology 2017; 112:4302-2381. TEST DESCRIPTION: Composite algorithmic analysis of stool DNA-biomarkers with hemoglobin immunoassay. Quantitative values of individual biomarkers are not reportable and are not associated with individual biomarker result reference ranges. Cologuard is intended for colorectal cancer screening of adults of either sex, 45 years or older, who are at average-risk for colorectal cancer (CRC). Cologuard has been approved for use by the U.S. FDA. The performance of Cologuard was established in a cross sectional study of average-risk adults aged 50-84. Cologuard performance in patients ages 45 to 49 years was estimated by sub-group analysis of near-age groups. Colonoscopies performed for a positive result may find as the most clinically significant lesion: colorectal cancer [4.0%], advanced adenoma (including sessile serrated polyps greater than or equal to 1cm diameter) [20%] or non- advanced adenoma [31%]; or no colorectal neoplasia [45%]. These estimates are derived from a prospective cross-sectional screening study of 10,000 individuals at average risk for colorectal cancer who were screened with both Cologuard and colonoscopy. (Sandy Neely et al, N Engl J Med 2014;370(14):2988-9200.) Cologuard may produce a false negative or false positive result (no colorectal cancer or precancerous polyp present at colonoscopy follow up). A negative Cologuard test result does not guarantee the absence of CRC or advanced adenoma (pre-cancer). The current Cologuard screening interval is every 3 years. ([place] [employer] and U.S. Multi-Society Task Force). Cologuard performance data in a 10,000 patient pivotal study using colonoscopy as the reference method can be accessed at the following location: www.G-cluster/results. Additional description of the Cologuard test process, warnings and precautions can be found at www.[employer] Technology[employer].com. Stool specimen (specimen) 11/10/2023 11:30 AM EDT 11/11/2023 11:31 AM EDT Emilie Angel MD LAB MOLECULAR DIAGNOSTICS ORDERA BLES Final Result [facility] (CLIA #:[id number]) [place] [address] [place] [address], * Hepatitis C Antibody with Reflex to HCV, RNA, Quantitative, Real-Time PCR (11/26/2022 10:23 AM EDT) Hepatitis C Antibody NON-REACT AMANDEEP NON-REACT AMANDEEP [facility] Comment: HCV antibody was non-reactive. There is no laboratory evidence of HCV infection. In most cases, no further action is required. However, if recent HCV exposure is suspected, a test for HCV RNA (test code 59554) is suggested. For additional information please refer to http://education.[employer].Gaatu/faq/GDZ41q2 (This link is being provided for informational/ educational purposes only.) Blood Venous blood specimen / Unknown 11/26/2022 10:23 AM EDT 11/26/2022 10:24 AM EDT Narrative [facility] - 11/28/2022 10:14 PM EDT FASTING:NO FASTING: NO us Emilie Angel MD LAB BLOOD ORDERABLES Final Resul t [facility] [address], [place] [address] [facility] [address] [place] [address] from Last 3 Months or Most Recently Relevant to Health Maintenance Insurance [facility] MEDICARE ADVANTAGE HMO Care Teams Forestry Engineer Relationship Specialty Start Date End Date Emilie Angel MD [address] [place] [address] PCP - General Family Medicine 08/26/19
--- OUTSIDE RECORDS SUMMARY | 2025-02-17 15:42 | XMS_ITS | Encounter Summary ---
Author Organization [employer] Address [address] [facility] 7t [place] [address] Care Team Providers Care Cotton Classer Aide Name Role Phone Emilie Angel MD Primary Care Provider [phone] Reason for Visit * Reason Onset Date Comments Blood pressure kit 01/13/2023 Encounter Details Date Type Department Care Team ([facility] st Contact Info) Description 01/13/2023 Telephone [facility] [address] [place] [address] Emilie Angel MD [address] [place] [address] [phone] Blood pressure kit Social History Tobacco Use Types Packs/Day Years Used Date Smoking Tobacco: Never Smokeless Tobacco: Never Comments Unknown Sex and Gender Information Value Date Recorded Sex Assigned at Female 03/31/2022 10:36 AM EDT Legal Sex Female 10:36 AM EDT Gender Identity Female 03/31/2022 10:36 AM EDT Sexual Orientation Straight 03/31/2022 10 :36 AM EDT documented as of this encounter Miscellaneous Notes * Telephone Encounter - Drake Rodriguez RN - 01/13/2023 2:06 PM EDT Pt of Dr. Angel who requested a BP machine. Please send BP kit to our pharmacy here at [facility]. Thanks. * Telephone Encounter - Danielle Jan - 01/13/2023 2:01 PM EDT Tc from patient requesting the status of blood pressure kit talked about in the last appt on 01/01/23. documented in this encounter Plan of Treatment Not on file documented as of this encounter Visit Diagnoses Not on filedocumented in this encounter Care Teams Cotton Classer Aide Relationship Specialty Start Date End Date Emilie Angel MD [address] [place] [phone] PCP - General Family Medicine 08/26/19 documented as of this encounter
--- OUTSIDE RECORDS SUMMARY | 2025-02-17 15:42 | XMS_ITS | Encounter Summary ---
Author Organization [employer] Address [address] [facility] 7t [place] [address] Care Team Providers Care Grinding Machine Operator Name Role Phone Emilie Angel MD Primary Care Provider [phone] Encounter Details Date Type Department Care Team ([facility] st Contact Info) Description 05/14/2023 Orders Only [facility] PEDS [address] [place], [place] [phone] Se Paris MD [address] [place] [address] Social History Tobacco Use Types Packs/Day Years Used Date Smoking Tobacco: Never Smokeless Tobacco: Never Comments Unknown Sex and Gender Information Value Date Recorded Sex Assigned at Female 03/31/2022 10:36 AM EDT Legal Sex Female 10:36 AM EDT Gender Identity Female 03/31/2022 10:36 AM EDT Sexual Orientation Straight 03/31/2022 10 :36 AM EDT documented as of this encounter Plan of Treatment Not on file documented as of this encounter Procedures Procedure Name Priority Date/Time Associated Diagnosis Comments CULTURE, URINE, ROUTINE Routine 05/14/2023 12:00 AM EST documented in this encounter Results * Culture, Urine, Routine (05/14/2023 12:00 AM EST) Urine Urine specimen obtained by clean catch procedure / Unknown 05/14/2023 05/14/2023 Comment:[facility] - 05/16/2023 12:48 PM EST Urine Culture Report Result Urine Culture > 100,000 cfu/ml Urine Culture Mixed bacterial khadar characteristic of Urine Culture urogenital contamination. Specimen Source: Urine clean catch us Se Paris MD LAB MICROBIOLOGY - GENERAL ORDERABLES Final Result [facility] [address] [place] [phone] documented in this encounter Visit Diagnoses Not on filedocumented in this encounter Care Teams Grinding Machine Operator Relationship Specialty Start Date End Date Emilie Angel MD [address] [place] [phone] PCP - General Family Medicine 08/26/19 documented as of this encounter
--- OUTSIDE RECORDS SUMMARY | 2025-02-17 15:42 | XMS_ITS | Encounter Summary ---
Author Organization [employer] Address [address] [facility] 7t [place] [address] Care Team Providers Care Laborer Brush Clearing Name Role Phone Emilie Angel MD Primary Care Provider [phone] Reason for Visit * Reason Onset Date Comments Call Back Request 07/06/2023 Encounter Details Date Type Department Care Team ([facility] st Contact Info) Description 07/06/2023 Telephone [facility] MEDIC[facility] [address] [place] [address] Emilie Angel MD [address] [place] [address] [phone] Call Back Request Social History Tobacco Use Types Packs/Day Years [...] encounter Miscellaneous Notes * Telephone Encounter - Emilie Angel MD - 07/07/2023 9:38 AM EST Spoke to pt in detail. Batsheva Sigala is feeling tired .Labs ordered today. * Telephone Encounter - Corky Neptali - 07/06/2023 11:16 AM EST Tc from patient requesting a call back from the provider and would only like to speak with PCP about health narrative writer did confirm there is no concerns at the moment documented in this encounter Plan of Treatment Not on file documented as of this encounter Visit Diagnoses Not on filedocumented in this encounter Care Teams Laborer Brush Clearing Relationship Specialty Start Date End Date Emilie Angel MD [address] [place] [phone] PCP - General Family Medicine 08/26/19 documented as of this encounter
--- OUTSIDE RECORDS SUMMARY | 2025-02-17 15:42 | XMS_ITS | Encounter Summary ---
Author Organization [employer] Address [address] [facility] 7t [place] [address] Care Team Providers Care Washer And Capper Machine Operator Name Role Phone Emilie Angel MD Primary Care Provider [phone] Encounter Details Date Type Department Care Team ([facility] st Contact Info) Description 01/14/2023 Orders Only [facility] MED & PEDS [address] [place], [place] [phone] Se Paris MD [address] [place], [place] [phone] Blood pressure check (Primary Dx) Social History Tobacco Use Types [...] as of this encounter Visit Diagnoses Diagnosis Blood pressure check- Primary Screening for hypertension documented in this encounter Care Teams Washer And Capper Machine Operator Relationship Specialty Start Date End Date Emilie Angel MD [address] [place] [phone] PCP - General Family Medicine 08/26/19 documented as of this encounter
--- OUTSIDE RECORDS SUMMARY | 2025-02-17 15:42 | XMS_ITS | Encounter Summary ---
Author Organization [employer] Address [address] [facility] [address] [place] [address] Care Team Providers Care Referral Agent Name Role Phone Emilie Angel MD Primary Care Provider [phone] Encounter Details Date Type Department Care Team ([facility] st Contact Info) Description 04/20/2024 Orders Only [facility] MED & PEDS [address] [place] [address] ProviderSean MD Social History Tobacco Use Types Packs/Day Years Used Date Smoking Tobacco: Never Smokeless Tobacco: Never Alcohol Use Standard Drinks/Week Comments Never 0 (1 standard drink = 0.6 oz pur e alcohol) Housing Stability Answer Date Recorded What is your housing situation today? I have awaeva kahn 10/16/[address] you [...] off services in your home? No 10/16/2023 Comments Unknown Sex and Gender Information Value Date Recorded Sex Assigned at Female 03/31/2022 10:36 AM EDT Legal Sex Female 10:36 AM EDT Gender Identity Female 03/31/2022 10:36 AM EDT Sexual Orientation Straight 03/31/2022 10 :36 AM EDT documented as of this encounter Plan of Treatment Not on file documented as of this encounter Procedures Procedure Name Priority Date/Time Associated Diagnosis Comments MAMMOGRAPHY Routine 04/19/2024 9:25 AM EST documented in this encounter Results * Hm Mammography (04/19/2024 9:25 AM EST) Anatomical Region Laterality Modality Other Historical Provider HEALTH MAINTENANCE Final Result documented in this encounter Visit Diagnoses Not on filedocumented in this encounter Care Teams Referral Agent Relationship Specialty Start Date End Date Emilie Angel MD [address] [place] [phone] PCP - General Family Medicine 08/26/19 documented as of this encounter
--- OUTSIDE RECORDS SUMMARY | 2025-02-17 15:42 | XMS_ITS | Encounter Summary ---
Author Organization [employer] Address [address] [facility] [address] 7[address] [place] [address] Care Team Providers Care Still Operator Helper Name Role Phone Emilie Angel MD Primary Care Provider [phone] Encounter Details Date Type Department Care Team (Late st Contact Info) Description 07/15/2022 Orders Only [facility] [address] [place], [place] [phone] Taylor Sauer LPN Social History Tobacco Use Types Packs/Day Years Used Date Smoking Tobacco: Never Assessed Comments Unknown Sex and Gender Information Value [...] on filedocumented in this encounter Care Teams Still Operator Helper Relationship Specialty Start Date End Date Emilie Angel MD [address] [place] [phone] PCP - General Family Medicine 08/26/19 documented as of this encounter
--- OUTSIDE RECORDS SUMMARY | 2025-02-17 15:42 | XMS_ITS | Encounter Summary ---
Author Organization [employer] Address [address] [facility] [address] [place] [address] Care Team Providers Care Last Repairer Helper Name Role Phone Emilie Angel MD Primary Care Provider [phone] Encounter Details Date Type Department Care Team (Latest Contact Info) Description 02/17/2025 Travel Social History Tobacco Use Types Packs/Day Years [...] on filedocumented in this encounter Care Teams Last Repairer Helper Relationship Specialty Start Date End Date Emilie Angel MD [address] [place] [address] PCP - General Family Medicine 08/26/19 documented as of this encounter
--- OUTSIDE RECORDS SUMMARY | 2025-02-17 15:42 | XMS_ITS | Encounter Summary ---
Author Organization [employer] Address [address] 7t [place] [address] Care Team Providers Care Windows Support Engineer Name Role Phone Emilie Angel MD Primary Care Provider [phone] Encounter Details Date Type Department Care Team (Late st Contact Info) Description 05/22/2024 Orders Only [facility] MEDICINE [address] [place], [place] [phone] ProviderSean MD Social History Tobacco Use Types [...] Procedure Name Priority Date/Time Associated Diagnosis Comments HM MAMMOGRAPHY Routine 04/10/2023 5:23 PM EST documented in this encounter Results * Hm Mammography (04/10/2023 5:23 PM EST) Anatomical Region Laterality Modality Other Historical Provider HEALTH MAINTENANCE Final Result documented in this encounter Visit Diagnoses Not on filedocumented in this encounter Care Teams Windows Support Engineer Relationship Specialty Start Date End Date Emilie Angel MD [address] [place] [phone] PCP - General Family Medicine 08/26/19 documented as of this encounter
--- OUTSIDE RECORDS SUMMARY | 2025-02-17 15:42 | XMS_ITS | Encounter Summary ---
Author Organization [employer] Address [address] [place] [address] 7t [place] [address] Care Team Providers Care Marine Erector Name Role Phone Emilie Angel MD Primary Care Provider [phone] Reason for Visit * Reason Onset Date Comments Nurse Triage 05/13/2023 Encounter Details Date Type Department Care Team ([facility] st Contact Info) Description 05/13/2023 Telephone [facility] CH[facility] MED & PEDS [address] [place], [place] [phone] Emilie Angel MD 505 [place] [address] Nurse Triage Social History Tobacco Use Types Packs/Day Years [...] encounter Miscellaneous Notes * Telephone Encounter - Zoe Tang RN - 05/13/2023 4:10 PM EST Triage call attempted x3. Pt didn't answer. Left voice message to call [facility] triage line [phone] * Telephone Encounter - Preston Salvador - 05/13/2023 2:48 PM EST Symptom: Urine Symptoms Outcome: Schedule a same-day appointment or talk to a nurse or provider today Reason: Caller denied all higher acuity questions documented in this encounter Plan of Treatment Not on file documented as of this encounter Visit Diagnoses Not on filedocumented in this encounter Care Teams Marine Erector Relationship Specialty Start Date End Date Emilie Angel MD [address] [place] [phone] PCP - General Family Medicine 08/26/19 documented as of this encounter
--- OUTSIDE RECORDS SUMMARY | 2025-02-17 15:42 | XMS_ITS | Encounter Summary ---
Author Organization [employer] Address [address] 7t [place] [address] Care Team Providers Care Department Of Mathematics Chair Name Role Phone Emilie Angel MD Primary Care Provider [phone] Reason for Visit * Reason Onset Date Comments Nurse Triage 02/13/2025 Encounter Details Date Type Department Care Team ([facility] st Contact Info) Description 02/13/2025 Telephone [facility] MEDICINE [address] [place] [address] Emilie Angel MD [address] [place], [place] [phone] Nurse Triage Social History Tobacco Use Types [...] Telephone Encounter - Zoe Tang RN - 02/13/2025 10:33 AM EDT Triage call Pt reports a skin lesion on top of right lower arm. Pt reports it was just noticed 2 days ago and was itchy at the time with Pt scratching it. Pt reports size to be about size of pencil eraser. Pt reports it is flat to the skin but, gets swollen sometimes. Color is brownish. Pt requests to see provider. ASK apt with Dr. Paris 02/17/25 @ 330pm. Protocol Used: Skin Lesion - Moles or Growths (Adult) Protocol-Based Disposition: See in Office or Video Visit within 2 Weeks Video visit not offered Positive Triage Question: * Caller is uncertain what lesion is * All higher-acuity triage questions were negative Care Advice Discussed: * Reassurance and Education - No Changes in Mole or Growth * Reasons To Call Back - Fever or pain occurs - Any change in a skin growth or mole - You become worse * Telephone Encounter - Aníbal Moraes - 02/13/2025 10:01 AM EDT Symptom: Skin Spot Outcome: Schedule an appointment to be seen within 3 days Reason: Caller denied all higher acuity questions documented in this encounter Plan of Treatment Not on file documented as of this encounter Visit Diagnoses Not on filedocumented in this encounter Care Teams Department Of Mathematics Chair Relationship Specialty Start Date End Date Emilie Angel MD [address] [place] [address] [place] [address] PCP - General Family Medicine 08/26/19 documented as of this encounter
[2025-02-17 17:53] LABS: MANUAL DIFF FLAG NO
[2025-02-17 18:03] LABS: INTERNATIONAL NORM RATIO 1.0 (0.9-1.1); Prothrombin Time 11.1 SEC (10.9-12.4)
[2025-02-17 18:15] LABS: Alanine Aminotransferase 45 U/L (0-31); Albumin Level 4.5 g/dL (3.5-5.0); Alkaline Phosphatase 60 U/L (39-117); Aspartate Amino Transferase 35 U/L (5-31); Total Protein 6.9 g/dL (6.5-8.0)
[2025-02-17 18:33] LABS: Hematocrit 43.1 % (37.0-47.0); Hemoglobin 14.5 g/dl (12.0-16.0); Imm Gran Abs Auto 0.01 X10*3/uL (0.00-0.03); Imm Gran Pct Auto 0.1 % (0.0-0.4); Lymphocytes Absolute Auto 2.9 X10*3/uL (1.2-4.9); Mean Corpuscular HGB Conc 33.6 g/dl (31.0-35.0); Mean Corpuscular Hemoglobin 31.7 pg (27.0-33.0); Mean Corpuscular Volume 94.3 fL (80.0-98.0); NRBC Abs Auto 0.000 X10*3/uL (0.0-0.012); NRBC Pct Auto 0.0 /100WBC (0.0-0.2); Platelet Count 300 X10*3/uL (160-400); Red Blood Count 4.57 X10*6/uL (4.20-5.50); White Blood Count 6.8 X10*3/uL (4.8-10.8)
== END 2025-02-17 15:38 | disposition home or self-care (01) ==
LOC: HO.CHCLDS 15:37
PROVIDERS: Visit Provider Internal Medicine
DX: D69.2 Other nonthrombocytopenic purpura (principal)
CPT/HCPCS: 36415; 80076; 85025; 85610

== ENCOUNTER 2025-02-22 13:52 | Outpatient (REF) | payer MEDICARE, SELFPAY ==
--- OUTSIDE RECORDS SUMMARY | 2025-02-17 15:30 | XMS_ITS | Encounter Summary ---
Author Organization [employer] Address [address] [facility] 7 [place] [address] Care Team Providers Care Supervisor [employer] Name Role Phone Emilie Angel MD Primary Care Provider [phone] Reason for Visit * Reason Comments Bleeding/Bruising Encounter Details Date Type Department Care Team ([facility] st Contact Info) Description 02/17/2025 3:30 PM EDT Office Visit [facility] [address] [place], [place] [phone] Se Paris MD [address] [place] [address] Sendenys purpura (CMS/HCC) (Primary Dx) Social History Tobacco Use Types Packs/Day Years Used Date Smoking Tobacco: Never Smokeless Tobacco: Never Alcohol Use Standard Drinks/Week Comments Never 0 (1 standard drink = 0.6 oz pur e alcohol) Housing Stability Answer Date Recorded What is your housing situation today? I have awa femi 10/16/[address] you li ve. Do you have problems with any of the following? None of the above 10/16/2023 Food Insecurity Answer Date Recorded Within the past 12 months, y ou worried that your food would run out before you got money to buy more: Never True 10/16/2023 Within the past 12 months,th e food you bought just didn't last and you didn't have enough money to get more: Never True Transportation Answer Date Recorded In the past 12 months, has l ack of transportation kept you from medical appts, meetings, work or from getting things needed for daily living? No 10/16/2023 Utilities Answer Date Recorded In the past 12 months, has t he electric, gas, oil or water company threatened to shut off services in your home? No 10/16/2023 Internet Access Answer Date Recorded Internet Access Q1 No 09/27/2024 Internet Access Q2 I do not want or need it 08/31 Comments No Sex and Gender Information Value Date Recorded Sex Assigned at Female 03/31/2022 10:36 AM EDT Legal Sex Female 10:36 AM EDT Gender Identity Female 03/31/2022 10:36 AM EDT Sexual Orientation Straight 03/31/2022 10 :36 AM EDT documented as of this encounter Last Filed Vital Signs Vital Sign Reading Time Taken Comments Blood Pressure 144/83 02/17/2025 3:03 PM EDT Pulse 96 02/17/2025 3:03 PM EDT Temperature 36.4 C (97.6 F) 02/17/2025 3:03 PM EDT Respiratory Rate 20 02/17/2025 3:03 PM EDT Oxygen Saturation 96% 02/17/2025 3:03 PM EDT Inhaled Oxygen Concentration - - Weight 78.5 kg (173 lb) 02/17/2025 3:03 PM EDT Height 160 cm (5' 3 ) 02/17/2025 3:03 PM EDT Body Mass Index 30.65 02/17/2025 3:03 PM EDT documented in this encounter Progress Notes * Se Paris MD - 02/17/2025 3:30 PM EDT SUBJECTIVE Batsheva Sigala is a 69 y.o. female who presents for Bleeding/Bruising. HPI Patient is here to get evaluated for multiple bruises of the upper limbs bilaterally that she started noticing about a month ago. She cannot recall if she has experienced some trauma. No reported fall. Problem List[1] Allergies[2] Medications Ordered Prior to Encounter[3] Review of Systems Constitutional: Negative for appetite change and chills. Respiratory: Negative for cough, choking and shortness of breath. Cardiovascular: Negative for leg swelling. Musculoskeletal: Negative for gait problem and joint swelling. OBJECTIVE Vitals: 02/17/25 1503 BP: (!) 144/83 BP Location: Left arm Patient Position: Sitting BP Cuff Size: Adult Pulse: 96 Resp: 20 Temp: 97.6 ??F (36.4 ??C) TempSrc: Oral SpO2: 96% Weight: 173 lb (78.5 kg) Height: 5' 3 (1.6 m) Physical Exam Constitutional: General: She is not in acute distress. Appearance: Normal appearance. She is not ill-appearing, toxic-appearing or diaphoretic. Cardiovascular: Rate and Rhythm: Normal rate. Pulmonary: Effort: Pulmonary effort is normal. Skin: Findings: Bruising present. Comments: Bruises of the upper limbs Neurological: Mental Status: She is alert. Assessment/Plan Assessment/Plan Diagnoses and all orders for this visit: Senile purpura (CMS/HCC) - CBC auto differential; Future - Prothrombin Time-INR; Future - Hepatic Function Panel; Future Patient was educated on the condition. Advised to keep the skin well moisturized. She will be called with the results of the workup. Instructed as well to avoid trauma. [1] Patient Active Problem List Diagnosis Hyperlipidemia Obesity Malignant neoplasm of upper-outer quadrant of female breast (CMS/HCC) Bilateral impacted cerumen [2] Allergies Allergen Reactions Pollen Extract [3] Current Outpatient Medications on File Prior to Visit Medication Sig Dispense Refill Blood Pressure kit To check the BP daily 1 kit 0 celecoxib (CeleBREX) 50 MG capsule TAKE 1 CAPSULE BY MOUTH 2 TIMES DAILY 60 capsule 0 cholecalciferol (Vitamin D-3) 25 MCG (1000 UT) capsule Take 1 capsule (25 mcg) by mouth Once per day. 30 capsule 11 hydroCHLOROthiazide (HYDRODiuril) 25 MG tablet Take 1 tablet (25 mg) by mouth Once per day. 30 tablet 11 hydrOXYzine HCl (Atarax) 10 MG tablet Take 1 tablet (10 mg) by mouth every 6 (six) hours if needed for anxiety. 90 tablet 1 loratadine (Claritin) 10 MG tablet TAKE 1 TABLET BY MOUTH EVERY DAY IN THE MORNING 90 tablet 0 omeprazole (PriLOSEC) [address] capsule TAKE 1 CAPSULE BY MOUTH EVERY DAY BEFORE A MEAL 90 capsule 1 sertraline (Zoloft) 25 MG tablet Take 1 tablet (25 mg) by mouth Once per day. 30 tablet 11 simvastatin (Zocor) 20 MG tablet TAKE 1 TABLET BY MOUTH EVERY DAY 90 tablet 5 No current facility-administered medications on file prior to visit. documented in this encounter Plan of Treatment Not on file documented as of this encounter Procedures Procedure Name Priority Date/Time Associated Diagnosis Comments CBC WITH AUTO DIFFERENTIAL Routine 02/17/2025 3:39 PM EDT Senile purpura (CMS/HCC) PROTHROMBIN TIME-INR Routine 02/17/2025 3:39 PM EDT Senile purpura (CMS/HCC) HEPATIC FUNCTION PANEL Routine 02/17/2025 3:39 PM EDT Senile purpura (CMS/HCC) documented in this encounter Results * (ABNORMAL) Hepatic Function Panel (02/17/2025 3:39 PM EDT) Bilirubin, Total 0.5 0.0 - 1.0 mg/dL [facility] Bilirubin, Direct 0.2 0.0 - 0.5 mg/dL [facility] Aspartate Amino Transferase 35(H) 5 - 31 U/L [facility] Alanine Aminotransferase 45(H) 0 - 31 U/L [facility] Total Protein 6.9 6.5 - 8.0 g/dL [facility] Albumin Level 4.5 3.5 - 5.0 g/dL [facility] Alkaline Phosphatase 60 39 - 117 U/L [facility] Blood Venous blood specimen / Unknown 02/17/2025 3:39 PM EDT 02/17/2025 5:54 PM EDT us Se Paris MD LAB BLOOD ORDERABLES Final Result [facility] [address] [place] [address] [phone] * Prothrombin Time-INR (02/17/2025 3:39 PM EDT) Prothrombin Time 11.1 10.9 - 12.4 SEC [facility] INTERNATIONAL NORM RATIO 1.0 0.9 - 1.1 [facility] Comment:INTERNATIONAL NORMAL IZED RATIO (INR) REFERENCE RANGES Reference RangeFor patients not on anticoagulant therapy: 0.9 - 1.1INR ranges for oral anticoagulanttherapy:For prevention and treatment of venous thrombosis and pulmonary embolism: 2.0 - 3.0For acute myocardial infarction with aspirin therapy: 2.0 - 3.0For acute myocardial infarction without aspirin therapy: 3.0 - 4.0For patients with mechanical prosthetic heart valves: 2.5 - 3.5 Blood Venous blood specimen / Unknown 02/17/2025 3:39 PM EDT 02/17/2025 5:53 PM EDT us Se Paris MD LAB BLOOD ORDERABLES Final Result [facility] [address] [place] [address] [phone] * (ABNORMAL) CBC auto differential (02/17/2025 3:39 PM EDT) White Blood Count 6.8 4.8 - 10.8 X10*3/uL [facility] Red Blood Count 4.57 4.20 - 5.50 X10*6/uL [facility] Hemoglobin 14.5 12.0 - 16.0 g/dl [facility] Hematocrit 43.1 37.0 - 47.0 % [facility] Mean Corpuscular Volume 94.3 80.0 - 98.0 fL [facility] Mean Corpuscular Hemoglobin 31.7 27.0 - 33.0 pg [facility] Mean Corpuscular HGB Conc 33.6 31.0 - 35.0 g/dl [facility] Red Cell Distribution Width 12.5 11.0 - 16.0 % [facility] Platelet Count 300 160 - 400 X10*3/uL [facility] Mean Platelet Volume 10.9 9.4 - 12.3 fL [facility] Neutrophils Percent Auto 48.9 45 - 73 % [facility] Imm Gran Pct Auto 0.1 0.0 - 0.4 % [facility] Lymphocytes Percent Auto 42.3(H) 20 - 40 % [facility] Monocytes Percent Auto 6.9 2 - 11 % [facility] Eosinophils Percent Auto 0.9 0 - 4 % [facility] Basophils Percent Auto 0.9 0 - 2 % [facility] NRBC Pct Auto 0.0 0.0 - 0.2 /100WBC [facility] Neutrophils Absolute Auto 3.4 2.0 - 8.3 x10*3/uL [facility] Imm Gran Abs Auto 0.01 0.00 - 0.03 X10*3/uL [facility] Lymphocytes Absolute Auto 2.9 1.2 - 4.9 X10*3/uL [facility] Monocytes Absolute Auto 0.5 0.1 - 1.2 X10*3/uL [facility] Eosinophils Absolute Auto 0.1 0.0 - 0.4 X10*3/uL [facility] Basophils Absolute Auto 0.1 0.0 - 0.2 X10*3/uL [facility] NRBC Abs Auto 0.000 0.0 - 0.012 X10*3/uL [facility] Blood Venous blood specimen / Unknown 02/17/2025 3:39 PM EDT 02/17/2025 5:49 PM EDT us Se Paris MD LAB BLOOD ORDERABLES Final Result Performing Organization Address City/State/[facility] Co de Phone Number [facility] [address] [place] [address] [phone] documented in this encounter Visit Diagnoses Diagnosis Senile purpura (CMS/HCC)- Primary Other nonthrombocytopenic purpuras documented in this encounter Care Teams Supervisor Cook House Relationship Specialty Start Date End Date Emilie Angel MD [address] [place] [phone] PCP - General Family Medicine 08/26/19 documented as of this encounter
[2025-02-22 14:43] LABS: INTERNATIONAL NORM RATIO 1.0 (0.9-1.1); Prothrombin Time 11.3 SEC (10.9-12.4)
[2025-02-22 15:35] LABS: Ferritin 141 ng/mL (10-250)
[2025-02-22 15:42] LABS: Iron 123 mcg/dL (30-160); Percent Iron Saturation 43 % (15-50); Total Iron Binding Capacity 283 mcg/dL (228-428); Unsaturated Iron Binding 160 ug/dL
--- OUTSIDE RECORDS SUMMARY | 2025-02-22 16:24 | XMS_ITS | Encounter Summary ---
Author Organization [employer] Address [address] 7t [place] [address] Care Team Providers Care Firmware Engineer Name Role Phone Emilie Angel MD Primary Care Provider [phone] Reason for Visit * Reason Onset Date Comments Nurse Triage 02/13/2025 Encounter Details Date Type Department Care Team ([facility] st Contact Info) Description 02/13/2025 Telephone [facility] MEDICINE [address] [place] [address] Emilie Angel MD [address] [place], [place] [phone] Nurse Triage Social History Tobacco Use Types [...] on filedocumented in this encounter Care Teams Firmware Engineer Relationship Specialty Start Date End Date Emilie Angel MD [address] [place] [address] [place] [address] PCP - General Family Medicine 08/26/19 documented as of this encounter
--- OUTSIDE RECORDS SUMMARY | 2025-02-22 16:24 | XMS_ITS | Encounter Summary ---
Author Organization [email or web address] Address [address] 7t [place] [address] Care Team Providers Care Mini Lab Operator Name Role Phone Emilie Angel MD Primary Care Provider [phone] Encounter Details Date Type Department Care Team (Late st Contact Info) Description 05/22/2024 Orders Only [facility] MEDICINE 230 [place], [place] [phone] ProviderSean MD Social History Tobacco Use Types [...] on filedocumented in this encounter Care Teams Mini Lab Operator Relationship Specialty Start Date End Date Emilie Angel MD [address] [place] [address] PCP - General Family Medicine 08/26/19 documented as of this encounter
--- OUTSIDE RECORDS SUMMARY | 2025-02-22 16:24 | XMS_ITS | Clinical Summary ---
Author Organization [employer] Address [address] [facility] 7t [place] [address] Care Team Providers Care Sawmill Supervisor Name Role Phone Emilie Angel MD Primary Care Provider Allergies Active Allergy Reactions Criticality Noted Date [...] recommended reduction of 20-30% of maintenance calories; accountant property referral offered. Recommended to decrease soda and sugary beverage consumption. Recommended at least 20 g per meal of protein to assist with satiety. Recommended at least 150 min/week of moderate intensity exercise. Patient would like a referral to Outreach Nurse Bilateral impacted cerumen 09/04/2023 Assessment & Plan [...] Encounters Date Type Department Care Team Description 02/21/[address] [address] Emilie Angel MD lab order question 02/20/2025 Results Follow-Up [facility] MED & PEDS [address] [place] [address] Shahla Drake RN CBC auto differential, Prothrombin Time-INR, Hepatic Function Panel 02/20/2025 Orders Only [facility] MED & PEDS [address] [place] [address] Se Paris MD Transaminitis (Primary Dx) 02/17/2025 3:30 PM EDT Office Visit [facility] MED & PEDS [address] [place] [address] Se Paris MD Senile purpura (CMS/HCC) (Primary Dx) 02/17/2025 Travel 02/13/2025 Telephone [facility] MEDICINE [address] [place] [address] Emilie Angel MD Nurse Triage 12/26/2024 Refill [facility] MED & PEDS [address] [place] [address] Emilie Angel MD 12/22/2024 Telephone [facility] MED & PEDS [address] [place] [address] Emilie Angel MD Hypertension 12/15/2024 Telephone [facility] MED & PEDS [address] [place] [address] Emilie Angel MD 12/08/2024 2:00 PM EDT Clinical Support [facility] MED [facility] PEDS [address] [place] [address] Shahla Drake RN Obesity due to excess calories without serious comorbidity, unspecified class [E66.09] 12/08/2024 Travel 11/29/2024 Telephone [facility] MED & PEDS [address] [place] [address] Emilie Angel MD 11/24/2024 Refill [facility] MED & PEDS [address] [place] [address] Emilie Angel MD from Last 3 Months Immunizations Immunization [...] 09/27/2024 SDOH Screening 09/27/2025 09/27/2024 Tobacco Screening 02/17/2026 02/17/2025 Colorectal Cancer Screening 11/09/2026 FIT DNA/Cologuard 11/09/2026 [...] Procedure Name Priority Date/Time Associated Diagnosis Comments IRON AND TOTAL IRON BINDING CAPACITY Routine 02/22/2025 1:54 PM EDT Transaminitis FERRITIN Routine 02/22/2025 1:54 PM EDT Transaminitis PROTHROMBIN TIME-INR Routine 02/22/2025 1:54 PM EDT Transaminitis HEPATIC FUNCTION PANEL Routine 02/17/2025 3:39 PM EDT Senile purpura (CMS/HCC) PROTHROMBIN TIME-INR Routine 02/17/2025 3:39 PM EDT Senile purpura (CMS/HCC) CBC WITH AUTO DIFFERENTIAL Routine 02/17/2025 3:39 PM EDT Senile purpura (CMS/HCC) LIPID PANEL, STANDARD Routine 05/03/2024 10:37 AM [...] Recently Relevant to Health Maintenance Results * Iron And Total Iron Binding Capacity (02/22/2025 1:54 PM EDT) Iron 123 30 - 160 mcg/dL [facility] Total Iron Binding Capacity 283 228 - 428 mcg/dL [facility] Percent Iron Saturation 43 15 - 50 % [facility] Unsaturated Iron Binding 160 ug/dL [facility] Blood Venous blood specimen / Unknown 02/22/2025 1:54 PM EDT 02/22/2025 2:32 PM EDT us Se Paris MD LAB BLOOD ORDERABLES Final Result Performing Organization Address [facility] Co de Phone Number [facility] [address] [place] [phone] * Prothrombin Time-INR (02/22/2025 1:54 PM EDT) Only the most recent of2 resultswithin the time period is included. Prothrombin Time 11.3 10.9 - 12.4 SEC [facility] INTERNATIONAL NORM RATIO 1.0 0.9 - 1.1 [facility] Comment:INTERNATIONAL NORMAL IZED RATIO (INR) REFERENCE [...] 3.5 Blood Venous blood specimen / Unknown 02/22/2025 1:54 PM EDT 02/22/2025 2:32 PM EDT us Se Paris MD LAB BLOOD ORDERABLES Final Result Performing Organization Address [facility] Co de Phone Number [facility] [address] [place] [phone] * Ferritin (02/22/2025 1:54 PM EDT) Ferritin 141 10 - 250 ng/mL [facility] Blood Venous blood specimen / Unknown 02/22/2025 1:54 PM EDT 02/22/2025 2:32 PM EDT us Se Paris MD LAB BLOOD ORDERABLES Final Result Performing Organization Address City/[facility] Co de Phone Number [facility] [address] [place] [phone] * (ABNORMAL) CBC auto differential (02/17/2025 3:39 PM EDT) White Blood Count 6.8 4.8 - 10.8 X10*3/uL [facility] Red Blood Count 4.57 4.20 - 5.50 X10*6/uL [facility] Hemoglobin 14.5 12.0 - 16.0 g/dl [facility] Hematocrit 43.1 37.0 - 47.0 % [facility] Mean Corpuscular Volume 94.3 80.0 - 98.0 fL [facility] Mean Corpuscular Hemoglobin 31.7 27.0 - 33.0 pg [facility] Mean Corpuscular HGB Conc 33.6 31.0 - 35.0 g/dl [facility] Red Cell Distribution Width 12.5 11.0 - 16.0 % [facility] Platelet Count 300 160 - 400 X10*3/uL [facility] Mean Platelet Volume 10.9 9.4 - 12.3 fL [facility] Neutrophils Percent Auto 48.9 45 - 73 % [facility] Imm Gran Pct Auto 0.1 0.0 - 0.4 % [facility] Lymphocytes Percent Auto 42.3(H) 20 - 40 % [facility] Monocytes Percent Auto 6.9 2 - 11 % [facility] Eosinophils Percent Auto 0.9 0 - 4 % [facility] Basophils Percent Auto 0.9 0 - 2 % [facility] NRBC Pct Auto 0.0 0.0 - 0.2 /100WBC [facility] Neutrophils Absolute Auto 3.4 2.0 - 8.3 x10*3/uL [facility] Imm Gran Abs Auto 0.01 0.00 - 0.03 X10*3/uL [facility] Lymphocytes Absolute Auto 2.9 1.2 - 4.9 X10*3/uL [facility] Monocytes Absolute Auto 0.5 0.1 - 1.2 X10*3/uL [facility] Eosinophils Absolute Auto 0.1 0.0 - 0.4 X10*3/uL [facility] Basophils Absolute Auto 0.1 0.0 - 0.2 X10*3/uL [facility] NRBC Abs Auto 0.000 0.0 - 0.012 X10*3/uL [facility] Blood Venous blood specimen / Unknown 02/17/2025 3:39 PM EDT 02/17/2025 5:49 PM EDT us Se Paris MD LAB BLOOD ORDERABLES Final Result Performing Organization Address City/[facility]/ZIP Co de Phone Number [facility] [address] [place] [phone] * (ABNORMAL) Hepatic Function Panel (02/17/2025 3:39 PM EDT) Bilirubin, Total 0.5 0.0 - 1.0 mg/dL [facility] Bilirubin, Direct 0.2 0.0 - 0.5 mg/dL [facility] Aspartate Amino Transferase 35(H) 5 - 31 U/L [facility] Alanine Aminotransferase 45(H) 0 - 31 U/L [facility] Total Protein 6.9 6.5 - 8.0 g/dL [facility] Albumin Level 4.5 3.5 - 5.0 g/dL [facility] Alkaline Phosphatase 60 39 - 117 U/L [facility] Blood Venous blood specimen / Unknown 02/17/2025 3:39 PM EDT 02/17/2025 5:54 PM EDT us Se Paris MD LAB BLOOD ORDERABLES Final Result Performing Organization Address City/[facility]/ZIP Co de Phone Number [facility] [address] [place] [phone] * (ABNORMAL) Lipid Panel, Standard (05/03/2024 10:37 AM EST) Triglycerides 108 <150 mg/dL [facility] Comment:Desirable Triglyceri de: less than 150 mg/dLBorderline High Triglyceride 150-199 mg/dLHigh Triglyceride: 200-499 mg/dLVery High Triglyceride: greater than or equal to 5OO mg/dL Cholesterol 213(H) <200 mg/dL [facility] Comment:Desirable Cholestero l: less than 200 mg/dLBorderline High Cholesterol: 200-239 mg/dLHigh Cholesterol: greater than 239 mg/dL LDL Cholesterol Calculated 134(H) <100 mg/dL [facility] Comment:Desirable LDL: less than 100 mg/dLNear Optimal/Above Optimal LDL: 110- 129 mg/dLBorderline High LDL: 130-159 mg/dLHigh LDL: 160-189 mg/dLVery High LDL: greater than or equal to 190 mg/dL HDL Cholesterol 58 >40 mg/dL [facility] Comment:Desirable HDL: great er than 40 mg/dL Note: This HDL assay may give artificially low results in patients with liver disease. Blood Venous blood specimen / Unknown 05/03/2024 10:37 AM EST 05/03/2024 1:35 PM EST Emilie Angel MD LAB BLOOD ORDERABLES Final Resul t [facility] [address] [place] [phone] * Hm Mammography (04/19/2024 9:25 AM EST) Anatomical Region Laterality Modality Other Historical Provider HEALTH MAINTENANCE Final Result * Cologuard?? colon cancer screening (11/10/2023 11:30 AM EDT) Cologuard Result Negative Negative 11/13/19 24 6:15 PM EDT [facility] (CLIA #:[id number]) Comment: NEGATIVE TEST RESULT. A negative Cologuard [...] screened with both Cologuard and colonoscopy. (Sandy Rodríguez al, N Engl J Med 2014;370(14):7076-4591) The normal value (reference range) for this assay is negative. COLOGUARD RE-SCREENING RECOMMENDATION: Periodic colorectal cancer screening is an important part of preventive healthcare for asymptomatic individuals at average risk for colorectal cancer. Following a negative Cologuard result, the [place] Cancer Society and U.S. Multi-Society Task Force screening guidelines recommend a Cologuard re-screening interval of 3 years. References: [place] [employer] Society Guideline for Colorectal Cancer Screening: https://www.cancer.org/cancer/eiqmq-qmhlmj-flygix/kixotfmlr-pscxuqmuy-zgqyjub/ac s-rec ommendations.html.; Rafal QUIJANO, Abraham PEREZ, Estela VieraK, Colorectal Cancer Screening: Recommendations for Physicians and Patients from the U.S. Multi-Society Task Force on Colorectal Cancer Screening , Am J Gastroenterology 2017; 112:4498-7366. TEST DESCRIPTION: Composite algorithmic analysis of stool [...] Neely et al, N Engl J Med 2014;370(14):8978-4920.) Cologuard may produce a false negative or false positive result (no colorectal cancer or precancerous polyp present at colonoscopy follow up). A negative Cologuard test result does not guarantee the absence of CRC or advanced adenoma (pre-cancer). The current Cologuard screening interval is every 3 years. ([place] Cancer Society and U.S. Multi-Society Task Force). Cologuard performance data in a 10,000 patient pivotal study using colonoscopy as the reference method can be accessed at the following location: www.uberlife/results. Additional description of the Cologuard test process, warnings and precautions can be found at www.[employer]rd.Sponsify. Stool specimen (specimen) 11/10/2023 11:30 AM EDT 11/11/2023 11:31 AM EDT Emilie Angel MD LAB MOLECULAR DIAGNOSTICS ORDERA BLES Final Result [facility] (CLIA #:[id number]) [place] [address] [place] [address], * Hepatitis C Antibody with Reflex to HCV, RNA, Quantitative, Real-Time PCR (11/26/2022 10:23 AM EDT) Hepatitis C Antibody NON-REACT AMANDEEP NON-REACT AMANDEEP [email or web address] Comment: HCV antibody was non-reactive. There is no laboratory evidence of HCV infection. In most cases, no further action is required. However, if recent HCV exposure is suspected, a test for HCV RNA (test code 17176) is suggested. For additional information please refer to http://education.[employer]eds.Sponsify/faq/HSY53x1 (This link is being provided for informational/ educational purposes only.) Blood Venous blood specimen / Unknown 11/26/2022 10:23 AM EDT 11/26/2022 10:24 AM EDT Narrative [facility] - 11/28/2022 10:14 PM EDT FASTING:NO FASTING: NO us Emilie Angel MD LAB BLOOD ORDERABLES Final Resul t [facility] [address], [place] [address] [facility] [place] [facility] [address] [place] [address] from Last 3 Months or Most Recently Relevant to Health Maintenance Insurance [facility] MEDICARE ADVANTAGE HMO Care Teams Sawmill Supervisor Relationship Specialty Start Date End Date Emilie Angel MD [address] [place] [phone] PCP - General Family Medicine 08/26/19
--- OUTSIDE RECORDS SUMMARY | 2025-02-22 16:24 | XMS_ITS | Encounter Summary ---
Author Organization [employer] Address [address] [facility] 7t [place] [address] Care Team Providers Care Wrapper Stripper Name Role Phone Emilie Angel MD Primary Care Provider Reason for Visit * Reason Onset Date Comments Results 02/20/2025 Encounter Details Date Type Department Care Team ([facility] st Contact Info) Description 02/20/2025 Results Follow-Up [facility] MED & PEDS [address] [place], [place] [phone] Shahla Drake RN CBC auto differential, Prothrombin Time-INR, Hepatic Function Panel Social History Tobacco Use Types Packs/Day Years [...] encounter Miscellaneous Notes * Telephone Encounter - Shahla Drake RN - 02/20/2025 4:09 PM EDT TC to pt to review results and additional labs and imaging ordered. All questions answered. Pt verbalized understanding and agreement with plan. * Telephone Encounter - Shahla Drake RN - 02/20/2025 4:09 PM EDT ----- Message from Se Paris MD sent at 02/20/2025 12:55 PM EDT ----- Please call. Labs reviewed. Normal platelets. Normal PT/INR. Abnormal liver test. Patient needs a workup. The orders are placed in the chart. Will also need liver ultrasound. ----- Message ----- From: Interface, Lab Results In Sent: 02/17/2025 6:04 PM EDT To: Se Paris MD documented in this encounter Plan of Treatment Not on file documented as of this encounter Visit Diagnoses Not on filedocumented in this encounter Care Teams Wrapper Stripper Relationship Specialty Start Date End Date Emilie Angel MD [address] [place] [phone] PCP - General Family Medicine 08/26/19 documented as of this encounter
--- OUTSIDE RECORDS SUMMARY | 2025-02-22 16:24 | XMS_ITS | Encounter Summary ---
Author Organization [employer] Address [address] [facility] 7t [place] [address] Care Team Providers Care Poultry Barn Manager Name Role Phone Emilie Angel MD Primary Care Provider [phone] Reason for Visit * Reason Onset Date Comments Blood pressure kit 01/13/2023 Encounter Details Date Type Department Care Team ([facility] st Contact Info) Description 01/13/2023 Telephone [facility] MEDICINE [address] [place] [address] Emilie Angel MD [address] [place] [address] [phone] Blood pressure kit Social History Tobacco Use [...] BP kit to our pharmacy here at [facility]. Thanks. * Telephone Encounter - Danielle Jan - 01/13/2023 2:01 PM EDT Tc from patient requesting the status of blood pressure kit talked about in the last appt on 01/01/23. documented in this encounter Plan of Treatment Not on file documented as of this encounter Visit Diagnoses Not on filedocumented in this encounter Care Teams Poultry Barn Manager Relationship Specialty Start Date End Date Emilie Angel MD [address] [place] [phone] PCP - General Family Medicine 08/26/19 documented as of this encounter
--- OUTSIDE RECORDS SUMMARY | 2025-02-22 16:24 | XMS_ITS | Encounter Summary ---
Author Organization [employer] Address [address] [facility] 7t [place] [address] Care Team Providers Care Contact Lens Assistant Name Role Phone Emilie Angel MD Primary Care Provider [phone] Encounter Details Date Type Department Care Team ([facility] st Contact Info) Description 05/14/2023 Orders Only [facility] MED & PEDS [address] [place], [place] [phone] Se Paris MD [address] [place] [address] Social History Tobacco Use Types Packs/Day Years [...] clean catch procedure / Unknown 05/14/2023 05/14/2023 Comment:[facility] - 05/16/2023 12:48 PM EST Urine Culture Report Result Urine Culture > 100,000 cfu/ml Urine Culture Mixed bacterial khadar characteristic of Urine Culture urogenital contamination. Specimen Source: Urine clean catch us Se Paris MD LAB MICROBIOLOGY - GENERAL ORDERABLES Final Result [facility] [address] [place] [phone] documented in this encounter Visit Diagnoses Not on filedocumented in this encounter Care Teams Contact Lens Assistant Relationship Specialty Start Date End Date Emilie Angel MD [address] [place] [phone] PCP - General Family Medicine 08/26/19 documented as of this encounter
--- OUTSIDE RECORDS SUMMARY | 2025-02-22 16:24 | XMS_ITS | Patient Health Record ---
Author Organization [facility] Address [address] [place] [address] Care Team Providers Care Handle And Vent Machine Operator Name Role Phone Emilie Angel Primary Care Provider Unavailabl e Gordon, Allison Unavailable [phone] Tari Morales Unavailable Unavailable Allergies No Known Allergies Reason For Referral No Information Medications Medication SIG (Take, Route, Frequency, Duration) Notes Start Date End Date Status zzzCompression Stockings Unknown Physical Therapy . . . 2-3x/week; Durat ion: 3-4 weeks Active Tamoxifen Citrate 20 MG 1 tablet Orally Once a day; Duration: 30 day(s) Active Simvastatin 10 MG 1 tablet in the even ing Orally Once a day Active Omeprazole 20 MG 1 capsule 30 minutes before morning meal Orally Once a day; Duration: 30 day(s) Active Nightsplint AFO as directed Wear As directed; Duration: as needed 03/13/2022 Active Calcium 1 tab Oral; Duration : 14 days 01/17/2022 Active Vitamin D3 7504528 UNIT/GM as directed 01/17/2022 Active Vitamin B6 50 MG 1 tablet Orally; Duration: 30 day(s) 01/17/2022 Active Social History Tobacco Use: Social History Observation Description Date Details (start date - stop date) Never Smoker NA - NA Tobacco Use/Smoking Question Answer Notes Are you a: nonsmoker Additional Findings: Tobacco Non-User Current no n-smoker Alcohol Screen Question Answer Notes Did you have a drink containing alcohol in the p ast year? No Points 0 Interpretation Negative Problems No Known Problems Plan Of Treatment Pending Test Test Name Order Date X ray : Foot, left 3V 10/26/2012 58138-Oghrnbgk Plate 03/03/2012 54062-Qqtaryon Plate 03/18/2013 04245-Kwwxpifo Plate Each Additional 80205-Mmoicfyw Plate Each Additional 07/201100, F4586-YOIOC/INJECT, JOINT/BURSA 0 10/26/201277541, I4962-CYGTI/INJECT, JOINT/BURSA 0 01/12/2014 Insurance Providers Payer Name Payer Address Payer Phone Subscriber Number Group Number Insured Name Patient Relationship to Insured Coverage Start Date Coverage End Date A[employer] Medicare Complete [address] [address] [place] [address] [id number] Batsheva Castelan Self - patient is the insured Medical (General) History Medical History History ICD Code sinus conditions liver disease headaches/migraines cholesterol Arthritis breast cancer Surgical History Surgery Date(Month/Year) breast cancer surgery 2009
--- OUTSIDE RECORDS SUMMARY | 2025-02-22 16:24 | XMS_ITS | Encounter Summary ---
Author Organization [employer] Address [address] 7[address] [place] [address] Care Team Providers Care Employment Recruiter Name Role Phone Emilie Angel MD Primary Care Provider [phone] Encounter Details Date Type Department Care Team ([facility] st Contact Info) Description 04/20/2024 Orders Only [facility] MED & PEDS [address] [place] [address] ProviderSean MD Social History Tobacco Use Types [...] on filedocumented in this encounter Care Teams Employment Recruiter Relationship Specialty Start Date End Date Emilie Angel MD [address] [place] [address] PCP - General Family Medicine 08/26/19 documented as of this encounter
--- OUTSIDE RECORDS SUMMARY | 2025-02-22 16:24 | XMS_ITS | Encounter Summary ---
Author Organization [employer] Address [address] [facility] 7t [place] [address] Care Team Providers Care Hris Specialist Name Role Phone Emilie Angel MD Primary Care Provider [phone] Reason for Visit * Reason Onset Date Comments Call Back Request 07/06/2023 Encounter Details Date Type Department Care Team ([facility] st Contact Info) Description 07/06/[address] [facility] MEDICINE [address] [place] [address] Emilie Angel MD [address] [place] [address] [phone] Call Back Request Social History Tobacco Use [...] like to speak with PCP about health sheet writer did confirm there is no concerns at the moment documented in this encounter Plan of Treatment Not on file documented as of this encounter Visit Diagnoses Not on filedocumented in this encounter Care Teams Hris Specialist Relationship Specialty Start Date End Date Emilie Angel MD [address] [place] [phone] PCP - General Family Medicine 08/26/19 documented as of this encounter
--- OUTSIDE RECORDS SUMMARY | 2025-02-22 16:24 | XMS_ITS | Encounter Summary ---
Author Organization [employer] Address [address] [place] [address] Care Team Providers Care Industrial Rehabilitation Consultant Name Role Phone Emilie Angel MD Primary Care Provider [phone] Encounter Details Date Type Department Care Team (Late st Contact Info) Description 07/15/2022 Orders Only [facility] MED & PEDS [address] [place], [place] [phone] Taylor Sauer LPN Social History Tobacco Use [...] on filedocumented in this encounter Care Teams Industrial Rehabilitation Consultant Relationship Specialty Start Date End Date Emilie Angel MD [address] [place] [address] PCP - General Family Medicine 08/26/19 documented as of this encounter
--- OUTSIDE RECORDS SUMMARY | 2025-02-22 16:24 | XMS_ITS | Encounter Summary ---
Author Organization [employer] Address [address] [facility] 7t [place] [address] Care Team Providers Care Maintenance Supervisor 2Nd Shift Name Role Phone Emiile Angel MD Primary Care Provider [phone] Encounter Details Date Type Department Care Team ([facility] st Contact Info) Description 01/14/2023 Orders Only [facility] MED & PEDS [address] [place], [place] [phone] Se Paris MD [address] [place], [place] [phone] Blood pressure check (Primary Dx) Social History [...] hypertension documented in this encounter Care Teams Maintenance Supervisor 2Nd Shift Relationship Specialty Start Date End Date Emilie Angel MD [address] [place] [phone] PCP - General Family Medicine 08/26/19 documented as of this encounter
--- OUTSIDE RECORDS SUMMARY | 2025-02-22 16:24 | XMS_ITS | Encounter Summary ---
Author Organization [employer] Address [address] [place] [address] 7t [place] [address] Care Team Providers Care Chief Executive Or Managing Director Name Role Phone Emilie Angel MD Primary Care Provider [phone] Reason for Visit * Reason Onset Date Comments Nurse Triage 05/13/2023 Encounter Details Date Type Department Care Team ([facility] st Contact Info) Description 05/13/2023 Telephone [facility] CHC MED & PEDS [address] [place], [place] [phone] Emilie Angel MD [address] [place] [address] Nurse Triage Social History Tobacco Use Types [...] didn't answer. Left voice message to call [facility] triage line [phone] * Telephone Encounter - Preston Salvador - 05/13/2023 2:48 PM EST Symptom: Urine Symptoms Outcome: Schedule a same-day appointment or talk to a nurse or provider today Reason: Caller denied all higher acuity questions documented in this encounter Plan of Treatment Not on file documented as of this encounter Visit Diagnoses Not on filedocumented in this encounter Care Teams Chief Executive Or Managing Director Relationship Specialty Start Date End Date Emilie Angel MD [address] [place] [address] PCP - General Family Medicine 08/26/19 documented as of this encounter
--- OUTSIDE RECORDS SUMMARY | 2025-02-22 16:24 | XMS_ITS | Encounter Summary ---
Author Organization [employer] Address [address] 7[address] [place] [address] Care Team Providers Care Insurance Rater Name Role Phone Emilie Angel MD Primary Care Provider [phone] Encounter Details Date Type Department Care Team [...] on filedocumented in this encounter Care Teams Insurance Rater Relationship Specialty Start Date End Date Emilie Angel MD [address] [place] [address] PCP - General Family Medicine 08/26/19 documented as of this encounter
--- OUTSIDE RECORDS SUMMARY | 2025-02-22 16:24 | XMS_ITS | Encounter Summary ---
Author Organization [employer] Address [address] 7[address] [place] [address] Care Team Providers Care Stoker Mechanic Name Role Phone Emilie Angel MD Primary Care Provider Reason for Visit * Reason Onset Date Comments lab order question 02/21/2025 Encounter Details Date Type Department Care Team ([facility] st Contact Info) Description 02/21/2025 Telephone [facility] MEDICINE [address] [place] [address] Emilie Angel MD [address] [place], [place] [phone] lab order question Social History Tobacco Use Types Packs/Day Years [...] encounter Miscellaneous Notes * Telephone Encounter - Errol Blake - 02/22/2025 8:49 AM EDT Tc from pt returning call back regarding prior message. Contact pt at [phone] * Telephone Encounter - Chayo Lua RN - 02/21/2025 12:48 PM EDT TC placed to patient [phone] in regards to below message. Patient did not answer, RN left VM requesting CB to [facility] nurses. Patient to f/u PRN. * Telephone Encounter - Steffany Mcgregor - 02/21/2025 9:09 AM EDT Tc from pt requesting a call from PCP in regards of some blood work, pt did not give any further information. Contact pt at [phone] documented in this encounter Plan of Treatment Not on file documented as of this encounter Visit Diagnoses Not on filedocumented in this encounter Care Teams Stoker Mechanic Relationship Specialty Start Date End Date Emilie Angel MD [address] [place] [address] PCP - General Family Medicine 08/26/19 documented as of this encounter
--- OUTSIDE RECORDS SUMMARY | 2025-02-22 16:24 | XMS_ITS | Encounter Summary ---
Author Organization [employer] Address [address] [place] [address] [address] [place] [address] Care Team Providers Care Infantry Unit Leader Name Role Phone Emilie Angel MD Primary Care Provider [phone] Reason for Referral * Imaging (Routine) - Authorized Specialty Diagnoses / Procedures Referred By Conthonorio t Referred To Contact Radiology Diagnoses Transaminitis Procedures US Abdomen Comp w elastography Se Paris MD [address] [place] [address] Phone: tel: fax: [address] Phone: tel: fax: Referral ID Status Reason Start Date Expiration Date V isits Requested Visits Authorized [id number] Authorized 02/20/2025 02/20/2026 1 1 Encounter Details Date Type Department Care Team (Late st Contact Info) Description 02/20/2025 Orders Only [facility] CHC MED & PEDS [address] [place] [address] Se Paris MD [address] [place], [place] [phone] Transaminitis (Primary Dx) Social History Tobacco Use Types [...] as of this encounter Plan of Treatment Scheduled Orders Name Type Priority Associated Diagnoses Orde r Schedule Smooth Muscle Antibody with Reflex to Titer Lab Routine Transaminitis Expected: 02/20/2025 (Approximate), Expires: 02/20/2026 Immunoglobulins, Quantitative, IgA, IgG, IgM Lab Routine Transaminitis Expected: 02/20/2025 (Approximate), Expires: 02/20/2026 Alpha 1 Antitrypsin Lab Routine Transaminitis Expected: 02/20/2025 (Approximate), Expires: 02/20/2026 Hepatitis B Surface Antibody, Qualitative Lab Routine Transaminitis Expected: 02/20/2025 (Approximate), Expires: 02/20/2026 US Abdomen Comp w elastography Imaging Routine Transaminitis Expected: 02/20/2025, Expires: 02/20/2026 Hepatitis Panel, General Lab Routine Transaminitis Expected: 02/20/2025, Expires: 02/20/2026 documented as of this encounter Procedures Procedure Name Priority Date/Time Associated Diagnosis Comments IRON AND TOTAL IRON BINDING CAPACITY Routine 02/22/2025 1:54 PM EDT Transaminitis PROTHROMBIN TIME-INR Routine 02/22/2025 1:54 PM EDT Transaminitis FERRITIN Routine 02/22/2025 1:54 PM EDT Transaminitis documented in this encounter Results * Iron And Total Iron Binding Capacity (02/22/2025 1:54 PM EDT) Iron 123 30 - 160 mcg/dL [facility] Total Iron Binding Capacity 283 228 - 428 mcg/dL [facility] Percent Iron Saturation 43 15 - 50 % [facility] Unsaturated Iron Binding 160 ug/dL [facility] Blood Venous blood specimen / Unknown 02/22/2025 1:54 PM EDT 02/22/2025 2:32 PM EDT us Se Paris MD LAB BLOOD ORDERABLES Final Result Performing Organization Address City/[facility] Co de Phone Number [facility] [address] [place] [phone] * Ferritin (02/22/2025 1:54 PM EDT) Ferritin 141 10 - 250 ng/mL [facility] Blood Venous blood specimen / Unknown 02/22/2025 1:54 PM EDT 02/22/2025 2:32 PM EDT Se Prais MD LAB BLOOD ORDERABLES Final Result Performing Organization Address [facility] Co de Phone Number [facility] [address] [place] [phone] * Prothrombin Time-INR (02/22/2025 1:54 PM EDT) Prothrombin Time 11.3 10.9 - 12.4 SEC [facility] INTERNATIONAL NORM RATIO 1.0 0.9 - 1.1 [facility] Comment:INTERNATIONAL NORMAL IZED RATIO (INR) [...] Paris MD LAB BLOOD ORDERABLES Final Result [facility] [address] [place] [phone] documented in this encounter Visit Diagnoses Diagnosis Transaminitis- Primary Nonspecific elevation of levels of transaminase or lactic acid dehydrogenase (LDH) documented in this encounter Care Teams Infantry Unit Leader Relationship Specialty Start Date End Date Emilie Angel MD [address] [place] [phone] PCP - General Family Medicine 08/26/19 documented as of this encounter
[2025-02-23 04:43] LABS: HBS Num1 27.44 mIU/mL (0-7.99); HBc Num1 0.10 S/CO (0.00-0.79); HBsAGNum1 0.27 S/CO (0.00-0.99); Hepatitis A Antibody IgM 0.14 Index (0-0.79); Hepatitis B Surface Antigen Negative (Negative); ~HepC Num1 0.06 S/CO (0.00-0.79); ~Hepatitis A Antibody IgM Nonreactive (Nonreactive); ~Hepatitis B Surface Antibody REACTIVE (Nonreactive); ~Hepatitis C Antibody Nonreactive (Nonreactive)
== END 2025-02-22 13:53 | disposition home or self-care (01) ==
LOC: HO.CHCLDS 13:52
PROVIDERS: Visit Provider Internal Medicine
DX: R74.01 Elevation of levels of liver transaminase levels (principal)
CPT/HCPCS: 36415; 82728; 82784; 83540; 85610; 86704; 86706; 86709; 86803; 87340

== ENCOUNTER 2025-03-21 09:54 | Outpatient (REF) | payer MEDICARE, SELFPAY ==
--- OUTSIDE RECORDS SUMMARY | 2025-03-21 09:00 | XMS_ITS | Encounter Summary ---
Author Organization [employer] Address [address] [place] [address] 7 [place] [address] Care Team Providers Care Senior Revenue Accountant Name Role Phone Reji Miguel CNP Primary Care Provider [phone] Reason for Referral * Consultation (Routine) - Pending Review Specialty Diagnoses / Procedures Referred By Pradeep fuller Referred To Contact Physical Therapy Diagnoses Chronic pain of right knee Reji Miguel CNP [address] [place] [address] Phone: tel: fax: Referral ID Status Reason Start Date Expiration Date Visits Requested Visits Authorized [id number] Pending Review Specialty Services Required 03/21/2026 1 1 Encounter Details Date Type Department Care Team (Late st Contact Info) Description 03/21/2025 9:00 AM EDT Office Visit [facility] [address] [place] [address] Reji Miguel CNP [address] [place] [address] Encounter for physical examination (Primary Dx); Chronic pain of right knee; Primary hypertension; Anxiety Social History Tobacco Use Types Packs/Day Years Used Date Smoking Tobacco: Never Smokeless Tobacco: Never Alcohol Use Standard Drinks/Week Comments Never 0 (1 standard drink = 0.6 oz pur e alcohol) Depression Answer Date Recorded Patient Health Questionnaire-9 Score 8 03/21/2025 Patient Health Questionnaire-9 Score 8 03/21/2025 Last PHQ-9: Questionnaire Data Not on file 1 Housing Stability Answer Date Recorded What is [...] off services in your home? No 10/16/2023 Depression Answer Date Recorded Patient Health Questionnaire-2 Score 4 03/21/2025 Internet Access Answer Date Recorded Internet Access [...] Sign Reading Time Taken Comments Blood Pressure 158/84 03/21/2025 8:59 AM EDT Pulse 88 03/21/2025 8:59 AM EDT Temperature 36.6 C (97.8 F) 03/21/2025 8:59 AM EDT Respiratory Rate 16 03/21/2025 8:59 AM EDT Oxygen Saturation 98% 03/21/2025 8:59 AM EDT Inhaled Oxygen Concentration - - Weight 77.1 kg (170 lb) 03/21/2025 8:59 AM EDT Height 160 cm (5' 3 ) 03/21/2025 8:59 AM EDT Body Mass Index 30.11 03/21/2025 8:59 AM EDT documented in this encounter Functional Status * Over the past 2 weeks, how often have you been bothered by any of the following problems? Question Answer Date of Assessment Author Patient Health Questionnaire -2 Score 4 03/21/2025 9:00 AM EDT Barry Foy MA * Little interest or pleasure in doing things Answer Date of Assessment Author Several days 03/21/2025 9:00 AM EDT Yang-Co Jannet perez MA * Feeling down, depressed, or hopeless Answer Date of Assessment Author Nearly every day 03/21/2025 9:00 AM EDT Celia-C Jannet melton MA * Trouble falling or staying asleep, or sleeping too much Answer Date of Assessment Author Not at all 03/21/2025 9:00 AM EDT Yang-Co Jannet perez MA * Feeling tired or having little energy Answer Date of Assessment Author Several days 03/21/2025 9:00 AM EDT Celia-Co Jannet perez MA * Poor appetite or overeating Answer Date of Assessment Author Not at all 03/21/2025 9:00 AM EDT Yang-Co Jannet perez MA * Feeling bad about yourself - or that you are a failure or have let yourself or your family down Answer Date of Assessment Author Not at all 03/21/2025 9:00 AM EDT Yang-Co Jannet perez MA * Trouble concentrating on things, such as reading the newspaper or watching television Answer Date of Assessment Author More than half the days 03/21/2025 9:00 AM EDT Jannet Klein MA * Moving or speaking so slowly that other people could have noticed? Or the opposite - being so fidgety or restless that you have been moving around a lot more than usual. Answer Date of Assessment Author Several days 03/21/2025 9:00 AM EDT Yang-Co Jannet perez MA * Thoughts that you would be better off or hurting yourself in some way Answer Date of Assessment Author Not at all 03/21/2025 9:00 AM EDT Yang-Co Jannet perez MA * Patient Health Questionnaire-9 Score Answer Date of Assessment Author 8 03/21/2025 9:00 AM EDT Yang-Co Jannet perez MA * How difficult have these problems made it for you to do your work, take care of things at home, or get along with other people? Answer Date of Assessment Author Not difficult at all 03/21/2025 9:00 AM EDT Jannet Hutson MA * Over the last 2 weeks, how often have you been bothered by any of the following problems? Question Answer Date of Assessment Author Feeling nervous, anxious, or on edge 1 03/21/2025 9:01 AM EDT Barry Foy MA Not being able to stop or control worrying 2 03/21/2025 9:01 AM EDT Barry Foy MA Worrying too much about different things 0 03/21/2025 9:01 AM EDT Barry Foy MA Trouble relaxing 1 03/21/2025 9:01 AM EDT Jannet Klein MA Being so restless that it is hard to sit still 1 03/21/2025 9:01 AM EDT Barry Foy MA Becoming easily annoyed or irritable 0 03/21/2025 9:01 AM EDT Barry Foy MA Feeling afraid as if somethi ng awful might happen 0 03/21/2025 9:01 AM EDT Barry Foy MA ANEL-7 Total Score 5 03/21/2025 9:01 AM KET Jannet Foy MA documented as of this encounter Progress Notes * Reji Miguel CNP - 03/21/2025 9:00 AM EDT Subjective: Batsheva Sigala is a 69 y.o. female who presents to the office for a transfer patient visit. Previous PCP Emilie Angel MD. Interim history: Last visit with PCP 08/2024 to address chronic conditions, at this point, hydrochlorothiazide added to med regimen for hypertension. Pt also started on sertraline 25 mg for anxiety. Pt reports she wasunaware she was supposed to start hydrochlorothiazide so she hasn't picked up med yet. Pt reports she [facility] For chronic [facility] pain, next one scheduled for Thursday. She uses heat therapy and celebrex for pain control has done PT in the past she is open to another course. Has mammo scheduled for next month Abdominal US to further evaluate transaminitis scheduled for next month. Current concerns: none Problem List[1] Surgical History[2] Family History[3] Mental health: Patient Health Questionnaire-9 Score: 8 (03/21/2025 9:00 AM) Patient Health Questionnaire-2 Score: 4 (03/21/2025 9:00 AM) Thoughts that you would be better off or hurting yourself in some way: Not at all (03/21/2025 9:00 AM) ANEL-7 Total Score: 5 (03/21/2025 9:01 AM) No LMP recorded (lmp unknown). Patient is postmenopausal. Allergies[4] Review of Systems Vitals: 03/21/25 0859 BP: (!) 158/84 BP Location: Right arm Patient Position: Sitting BP Cuff Size: Large adult Pulse: 88 Resp: 16 Temp: 97.8 ??F (36.6 ??C) TempSrc: Oral SpO2: 98% Weight: 170 lb (77.1 kg) Height: 5' 3 (1.6 m) Physical Exam Constitutional: Appearance: Normal appearance. She is normal weight. Cardiovascular: Rate and Rhythm: Normal rate and regular rhythm. Pulses: Normal pulses. Heart sounds: Normal heart sounds. No murmur heard. No friction rub. No gallop. Pulmonary: Effort: Pulmonary effort is normal. No respiratory distress. Breath sounds: Normal breath sounds. No wheezing or rales. Neurological: General: No focal deficit present. Mental Status: She is alert and oriented to person, place, and time. Psychiatric: Mood and Affect: Mood normal. Behavior: Behavior normal. Thought Content: Thought content normal. Judgment: Judgment normal. Assessment & Plan Encounter for physical examination 69 y/o f with unremarkable PE. 1. Anticipatory guidance discussed. Specific topics reviewed: drugs, ETOH, and tobacco, importance of regular dental care, importance of regular exercise, importance of varied diet, minimize junk food, and sex; STD and prevention as appropriate. 2. Age appropriate screenings discussed Routine Screening and Health Maintenance Optometry: Yes Dentist: Yes BMD: Pt last Dexa scan completed 10/2020, routine testing q2 yrs ASCVD risk: 69 y.o. female: risk factors include hypertension and BMI of 30. Lab Review: labs reviewed showing mild transaminitis, iron studies normal. Will repeat lab studies today, see orders. Routine Cancer Screening Breast CA: last mammo completed 04/2024 Bi-Rads 2, recommended annual screening Cervical CA: UTD Colon CA: up to date, Cologuard result from 10/2023 was negative. Lung CA: Orders: Lipid Panel, Standard; Future Hepatic Function Panel; Future CBC auto differential; Future Chronic pain of right knee Placed PT referral Continue with conservative therapy. Orders: Referral to Physical Therapy; Future Primary hypertension BP not at goal of <140/90 Medication: Start: HCTZ 25mg Lifestyle Modifications: Low sodium DASH diet Regular aerobic exercise (>=150 min/week) Weight loss if BMI >25 Limit alcohol, avoid tobacco Follow-up: Recheck BP in office/home in __2____ weeks Patient Education: Provided verbal/written education on BP goals and home monitoring Emphasized adherence to medication and follow-up Anxiety Denies any current symptoms of anxiety Continue on current meds Current Medications[5] Immunization History Administered Date(s) Administered INFLUENZA VACCINE QUADRIVALENT RECOMBINANT PRESERVATIVE FREE RIV4 02/24/2020 Influenza Injectable Quadrivalant Preservative Free IIV4 MDCK 02/20/2017 Influenza Quadrivalent Adjuvanted 03/13/2022 Influenza injectable quadrivalent preservative free 04/05/2018 Influenza, IIV3, injectable 03/24/2014, 03/24/2016 Pfizer Covid-19 Vaccine 12+ 07/05/2020, 07/26/2020 Pfizer Covid-19 Vaccine 12+ Bivalent 03/13/2022 Pneumococcal Conjugate PCV 13 09/20/2021 Td (adult), unspecified 05/01/2004 Tdap 10/01/2012, 10/28/2023 Zoster, live 07/18/2015 Follow up in about 1 year (around 03/21/2026) for physical . [1] Patient Active Problem List Diagnosis Hyperlipidemia Obesity Malignant neoplasm of upper-outer quadrant of female breast (CMS/HCC) (HCC) Bilateral impacted cerumen Actinic keratosis Acute effect of ultraviolet radiation on normal skin Arthritis Basal cell carcinoma (BCC) of face Basal cell carcinoma (BCC) of skin of trunk Benign neoplasm of skin of trunk Melanocytic nevus of trunk Gastroesophageal reflux disease Hemangioma of skin and subcutaneous tissue History of malignant neoplasm of skin Inflamed seborrheic keratosis Neoplasm of uncertain behavior of skin Surgical follow-up care Hypercholesterolemia Disorder of pigmentation [2] No past surgical history on file. [3] No family history on file. [4] Allergies Allergen Reactions Pollen Extract [5] Current Outpatient Medications Medication Sig Dispense Refill Blood Pressure kit [...] 90 tablet 5 No current facility-administered medications for this visit. documented in this encounter Plan of Treatment Scheduled Orders Name Type Priority Associated Diagnoses Orde r Schedule Lipid Panel, Standard Lab Routine Encounter for physical examination Expected: 03/21/2025 (Approximate), Expires: 03/21/2026 Hepatic Function Panel Lab Routine Encounter for physical examination Expected: 03/21/2025 (Approximate), Expires: 03/21/2026 CBC auto differential Lab Routine Encounter for physical examination Expected: 03/21/2025 (Approximate), Expires: 03/21/2026 Scheduled Referrals Name Type Priority Associated Diagnoses Orde r Schedule Referral to Physical Therapy Outpatient Referral Routine Chronic pain of right knee Expected: 03/21/2025 (Approximate), Expires: 03/21/2026 documented as of this encounter Visit Diagnoses Diagnosis Encounter for physical examination- Primary Chronic pain of right knee Primary hypertension Unspecified essential hypertension Anxiety Anxiety state, unspecified documented in this encounter Additional Health Concerns Assessment Noted Time PHQ-9 Depression Total Score: 8 03/21/20 9:00 AM EDT documented as of this encounter Care Teams Senior Revenue Accountant Relationship Specialty Start Date End Date Reji Miguel CNP [address] [place] [address] PCP - General Family Medicine 02/24/25 documented as of this encounter
--- OUTSIDE RECORDS SUMMARY | 2025-03-21 11:20 | XMS_ITS | Encounter Summary ---
Author Organization [employer] Address [address] [place] [address] 7 [place] [address] Care Team Providers Care Swimming Pool Installer Name Role Phone Emilie Angel MD Primary Care Provider [phone] Reji Miguel CNP Primary Care Provider [phone] Encounter Details Date Type Department Care Team (Late st Contact Info) Description 07/15/2022 Orders Only [facility] [address] [place], [place] [phone] Taylor Sauer LPN Social History Tobacco Use [...] on filedocumented in this encounter Care Teams Swimming Pool Installer Relationship Specialty Start Date End Date Emilie Angel MD [address] [place] [address] PCP - General Family Medicine 08/26/19 02/23/25 Reji Miguel CNP [address] [place] [address] PCP - General Family Medicine 02/24/25 documented as of this encounter
--- OUTSIDE RECORDS SUMMARY | 2025-03-21 11:20 | XMS_ITS | Encounter Summary ---
Author Organization [employer] Address [address] [place] [address] 7 [place] [address] Care Team Providers Care Home Theater Experience Expert Name Role Phone Emilie Angel MD Primary Care Provider [phone] Reji Miguel CNP Primary Care Provider [phone] Reason for Referral * Imaging (Routine) - Authorized Specialty Diagnoses / Procedures Referred By Contac t Referred To Contact Radiology Diagnoses Transaminitis Procedures US Abdomen Comp w elastography Se Paris MD [address] [place] [address] Phone: tel: fax: [address] Phone: tel: fax: Referral ID Status Reason Start Date Expiration Date V isits Requested Visits Authorized [id number] Authorized 02/20/2025 02/20/2026 1 1 Encounter Details Date Type Department Care Team (Late st Contact Info) Description 02/20/2025 Orders Only [facility] [address] [place], [place] [phone] Se Paris MD [address] [place], [place] [phone] Transaminitis (Primary Dx) Social History Tobacco Use [...] Imaging Routine Transaminitis Expected: 02/20/2025, Expires: 02/20/2026 documented as of this encounter Procedures Procedure Name Priority Date/Time Associated Diagnosis Comments HEPATITIS PANEL, GENERAL Routine 02/22/2025 1:54 PM EDT Transaminitis IRON AND TOTAL IRON BINDING CAPACITY Routine 02/22/2025 1:54 PM EDT Transaminitis PROTHROMBIN TIME-INR Routine 02/22/2025 1:54 PM EDT Transaminitis IMMUNOGLOBULINS, QUANTITATIVE, IGA, IGG, IGM Routine 02/22/2025 1:54 PM EDT Transaminitis FERRITIN Routine 02/22/2025 1:54 PM EDT Transaminitis documented in this encounter Results * Hepatitis Panel, General (02/22/2025 1:54 PM EDT) Hepatitis A IgM Nonreactive Nonreactive [facility] Comment:IgM antibodies to NARVAEZ V not detected; does not exclude earlyacute or recovered HAV infection. ~Hepatitis B Surface Antibody REACTIVE Nonreactive [facility] Comment:REACTIVE: > 11.99 mI U/mL Hepatitis B Core Antibody Nonreactive Nonreactive [facility] Hepatitis C Antibody Nonreactive Nonreactive [facility] Comment:Antibodies to HCV no t detected; does not exclude early acuteHCV infection. Hepatitis B Surface Ag Negative Negative [facility] Blood Venous blood specimen / Unknown 02/22/2025 1:54 PM EDT 02/22/2025 2:32 PM EDT us Se Paris MD LAB BLOOD ORDERABLES Final Result [facility] [address] [place] [phone] [phone] * Iron And Total Iron Binding Capacity (02/22/2025 1:54 PM EDT) Iron 123 30 - 160 mcg/dL [facility] Total Iron Binding Capacity 283 228 - 428 mcg/dL [facility] Percent Iron Saturation 43 15 - 50 % [facility] Unsaturated Iron Binding 160 ug/dL [facility] Blood Venous blood specimen / Unknown 02/22/2025 1:54 PM EDT 02/22/2025 2:32 PM EDT us Se Paris MD LAB BLOOD ORDERABLES Final Result Performing Organization Address [facility] Co de Phone Number [facility] [address] [place] [phone] * Ferritin (02/22/2025 1:54 PM EDT) Ferritin 141 10 - 250 ng/mL [facility] Blood Venous blood specimen / Unknown 02/22/2025 1:54 PM EDT 02/22/2025 2:32 PM EDT us Se Paris MD LAB BLOOD ORDERABLES Final Result Performing Organization Address [facility] Phone Number [facility] [address] [place] [phone] * Prothrombin Time-INR (02/22/2025 1:54 PM EDT) Prothrombin Time 11.3 10.9 - 12.4 SEC [facility] INTERNATIONAL NORM RATIO 1.0 0.9 - 1.1 [facility] Comment:INTERNATIONAL NORMAL IZED RATIO (INR) [...] PM EDT 02/22/2025 2:32 PM EDT Se Paris MD LAB BLOOD ORDERABLES Final Result Performing Organization Address [facility] Co de Phone Number [facility] [address] [place] [address] [place] [phone] * Immunoglobulins, Quantitative, IgA, IgG, IgM (02/22/2025 1:54 PM EDT) IMMUNOGLOBULIN G 776 600 - 1540 mg/dL [facility] IMMUNOGLOBULIN A 185 70 - 320 mg/dL [facility] Immunoglobulin M 125 50 - 300 mg/dL [facility] Comment:THIS TEST WAS PERFOR MED AT:[employer] [place] [phone] LIMON MD Blood Venous blood specimen / Unknown 02/22/2025 1:54 PM EDT 02/22/2025 2:32 PM EDT us Se Paris MD LAB BLOOD ORDERABLES Final Result [facility] [address] [place] [phone] [phone] documented in this encounter Visit Diagnoses Diagnosis Transaminitis- Primary Nonspecific elevation of levels of transaminase or lactic acid dehydrogenase (LDH) documented in this encounter Care Teams Home Theater Experience Expert Relationship Specialty Start Date End Date Emilie Angel MD [address] [place] [address] PCP - General Family Medicine 08/26/19 02/23/25 Reji Miguel CNP [address] [place] [address] PCP - General Family Medicine 02/24/25 documented as of this encounter
--- OUTSIDE RECORDS SUMMARY | 2025-03-21 11:20 | XMS_ITS | Encounter Summary ---
Author Organization [employer] Address [address] 7[address] [place] [address] Care Team Providers Care Cadastral Surveyor Name Role Phone Emilie Angel MD Primary Care Provider [phone] Reji Miguel CNP Primary Care Provider [phone] Reason for Visit * Reason Onset Date Comments Nurse Triage 02/13/2025 Encounter Details Date Type Department Care Team ([facility] st Contact Info) Description 02/13/2025 Telephone [facility] [address] [place] [address] Emilie Angel MD [address] [place], [place] [phone] Nurse Triage Social History Tobacco Use Types [...] on filedocumented in this encounter Care Teams Cadastral Surveyor Relationship Specialty Start Date End Date Emilie Angel MD [address] [place] [address] PCP - General Family Medicine 08/26/19 02/23/25 Reji Miguel CNP [address] [place] [address] PCP - General Family Medicine 02/24/25 documented as of this encounter
--- OUTSIDE RECORDS SUMMARY | 2025-03-21 11:20 | XMS_ITS | Encounter Summary ---
Author Organization [employer] Address [address] [facility] 7t [place] [address] Care Team Providers Care Buying Intern Name Role Phone Reji Miguel CNP Primary Care Provider [phone] Reason for Visit * Reason Onset Date Comments chart prep 03/17/2025 Encounter Details Date Type Department Care Team ([facility] st Contact Info) Description 03/17/2025 Telephone [facility] [address] [place], [place] [phone] Reji Miguel CNP [address] [place] [address] chart prep Social History Tobacco Use Types Packs/Day Years [...] encounter Miscellaneous Notes * Telephone Encounter - Jannet Foy MA - 03/17/2025 9:20 AM EDT Chart Prep Labs: done Images: not applicable Referrals: not applicable Vaccines due: Covid, Flu, PCV20, and Zoster Screenings: not applicable Overdue care gaps: PHQ-9 and ANEL-7 documented in this encounter Plan of Treatment Not on file documented as of this encounter Visit Diagnoses Not on filedocumented in this encounter Care Teams Buying Intern Relationship Specialty Start Date End Date Reji Miguel CNP [address] [place] [address] [facility] [place] [place] [address] PCP - General Family Medicine 02/24/25 documented as of this encounter
--- OUTSIDE RECORDS SUMMARY | 2025-03-21 11:21 | XMS_ITS | Encounter Summary ---
Author Organization [employer] Address [address] [place] [address] Care Team Providers Care Theoretical Physicist Name Role Phone Reji Miguel LOWELL Primary Care Provider [phone] Encounter Details Date Type Department Care Team (Latest Contact Info) Description 03/21/2025 Travel Social History Tobacco Use Types Packs/Day [...] AM EDT documented as of this encounter Functional Status * Over the past 2 weeks, how often have you been bothered by any of the following problems? Question Answer Date of Assessment Author Patient Health Questionnaire -2 Score 4 03/21/2025 9:00 AM EDT Barry Foy MA * Little interest or pleasure in doing things Answer Date of Assessment Author Several days 03/21/2025 9:00 AM EDT Jannet Langley MA * Feeling down, depressed, or hopeless Answer Date of Assessment Author Nearly every day 03/21/2025 9:00 AM EDT Jannet Gage MA * Trouble falling or staying asleep, or sleeping too much Answer Date of Assessment Author Not at all 03/21/2025 9:00 AM EDT Celia-Jannet Carreon MA * Feeling tired or having little energy Answer Date of Assessment Author Several days 03/21/2025 9:00 AM EDT Jannet Langley MA * Poor appetite or overeating Answer Date of Assessment Author Not at all 03/21/2025 9:00 AM EDT Celia-Jannet Carreon MA * Feeling bad about yourself - or that you are a failure or have let yourself or your family down Answer Date of Assessment Author Not at all 03/21/2025 9:00 AM EDT Celia-Jannet Carreon MA * Trouble concentrating on things, such [...] Author Several days 03/21/2025 9:00 AM EDT Jannet Langley MA * Thoughts that you would be better off or hurting yourself in some way Answer Date of Assessment Author Not at all 03/21/2025 9:00 AM EDT Jannet Langley MA * Patient Health Questionnaire-9 Score Answer Date of Assessment Author 8 03/21/2025 9:00 AM EDT Jannet Langley MA * How difficult have these problems [...] ANEL-7 Total Score 5 03/21/2025 9:01 AM EDT Jannet Foy MA documented as of this encounter Plan of Treatment Not on file documented as of this encounter Visit Diagnoses Not on filedocumented in this encounter Additional Health Concerns Assessment Noted Time PHQ-9 Depression Total Score: 8 03/21/20 25 9:00 AM EDT documented as of this encounter Care Teams Theoretical Physicist Relationship Specialty Start Date End Date Reji Miguel CNP [address] [place], [place] [address] [address] PCP - General Family Medicine 02/24/25 documented as of this encounter
--- OUTSIDE RECORDS SUMMARY | 2025-03-21 11:21 | XMS_ITS | Encounter Summary ---
Author Organization [employer] Address [address] [place] [address] Care Team Providers Care Big Data Lead Name Role Phone Emilie Angel MD Primary Care Provider [phone] Reji Miguel CNP Primary Care Provider [phone] Encounter Details Date Type Department Care Team (Late st Contact Info) Description 05/22/2024 Orders Only [facility] MEDICINE [address] [place], [place] [phone] ProviderSean MD Social History Tobacco Use Types [...] PM EST) Anatomical Region Laterality Modality Other us Historical Provider HEALTH MAINTENANCE Final Result documented in this encounter Visit Diagnoses Not on filedocumented in this encounter Care Teams Big Data Lead Relationship Specialty Start Date End Date Emilie Angel MD [address] [place] [address] PCP - General Family Medicine 08/26/19 02/23/25 Reij Miguel CNP [address] [place] [address] PCP - General Family Medicine 02/24/25 documented as of this encounter
--- OUTSIDE RECORDS SUMMARY | 2025-03-21 11:21 | XMS_ITS | Encounter Summary ---
Author Organization [employer] Address [address] [facility] 7t [place] [address] Care Team Providers Care Resource Conservationist Name Role Phone Reji Miguel CNP Primary Care Provider [phone] Reason for Visit * Reason Onset Date Comments Referral 03/01/2025 Encounter Details Date Type Department Care Team ([facility] st Contact Info) Description 03/01/2025 Telephone [facility] MED & PEDS [address] [place], [place] [phone] Reji Miguel CNP [address] [place], [place] [phone] Referral Social History Tobacco Use Types Packs/Day Years [...] * Telephone Encounter - Errol Blake - 03/14/2025 9:47 AM EDT Tc from pt requesting the status of the referral for [facility]. Contact pt at [phone] * Telephone Encounter - Preston Salvador - 03/07/2025 4:03 PM EDT Tc from pt requesting a call back regarding message prior stating she has not heard any updates regarding referral. Please contact pt at [phone]. * Telephone Encounter - Sushma Soto - 03/01/2025 9:06 AM EDT Tc from pt requesting for referral to radiology to be redirected to [facility] [place] [address] Contact pt at [phone] documented in this encounter Plan of Treatment Not on file documented as of this encounter Visit Diagnoses Not on filedocumented in this encounter Care Teams Resource Conservationist Relationship Specialty Start Date End Date Reji Miguel CNP [address] [place] [address] PCP - General Family Medicine 02/24/25 documented as of this encounter
--- OUTSIDE RECORDS SUMMARY | 2025-03-21 11:21 | XMS_ITS | Encounter Summary ---
Author Organization [employer] Address [address] [facility] 7t [place] [address] Care Team Providers Care Chancery Clerk Name Role Phone Emilie Angel MD Primary Care Provider [phone] Reji Miguel CNP Primary Care Provider [phone] Reason for Visit * Reason Onset Date Comments Blood pressure kit 01/13/2023 Encounter Details Date Type Department Care Team ([facility] st Contact Info) Description 01/13/2023 Telephone [facility] MEDICINE [address] [place] [address] Emilie Angel MD [address] [place], [place] [phone] Blood pressure kit Social History Tobacco Use [...] BP kit to our pharmacy here at [facility]. Thanks. * Telephone Encounter - Danielle Montoya - 01/13/2023 2:01 PM EDT Tc from patient requesting the status of blood pressure kit talked about in the last appt on 01/01/23. documented in this encounter Plan of Treatment Not on file documented as of this encounter Visit Diagnoses Not on filedocumented in this encounter Care Teams Chancery Clerk Relationship Specialty Start Date End Date Emilie Angel MD [address] [place] [address] PCP - General Family Medicine 08/26/19 02/23/25 Reji Miguel CNP [address] [place] [address] PCP - General Family Medicine 02/24/25 documented as of this encounter
--- OUTSIDE RECORDS SUMMARY | 2025-03-21 11:21 | XMS_ITS | Encounter Summary ---
Author Organization [employer] Address [address] [facility] 7t [place] [address] Care Team Providers Care Trust Mail Clerk Name Role Phone Emilie Angel MD Primary Care Provider [phone] Reji Miguel CNP Primary Care Provider [phone] Reason for Visit * Reason Onset Date Comments Call Back Request 07/06/2023 Encounter Details Date Type Department Care Team ([facility] st Contact Info) Description 07/06/2023 Telephone [facility] MEDICINE [address] [place] [address] Emilie Angel MD [address] [place], [place] [phone] Call Back Request Social History Tobacco Use [...] ordered today. * Telephone Encounter - Corky Perez - 07/06/2023 11:16 AM EST Tc from patient requesting a call back from the provider and would only like to speak with PCP about health conventional mortgage underwriter did confirm there is no concerns at the moment documented in this encounter Plan of Treatment Not on file documented as of this encounter Visit Diagnoses Not on filedocumented in this encounter Care Teams Trust Mail Clerk Relationship Specialty Start Date End Date Emilie Angel MD [address] [place] [id number] PCP - General Family Medicine 08/26/19 02/23/25 Reji Miguel CNP [address] [place] [address] PCP - General Family Medicine 02/24/25 documented as of this encounter
--- OUTSIDE RECORDS SUMMARY | 2025-03-21 11:21 | XMS_ITS | Encounter Summary ---
Author Organization [employer] Address [address] [facility] 7t [place] [address] Care Team Providers Care Dip Guider Stoves Name Role Phone Emilie Angel MD Primary Care Provider [phone] Reji Miguel CNP Primary Care Provider [phone] Reason for Visit * Reason Onset Date Comments Nurse Triage 05/13/2023 Encounter Details Date Type Department Care Team ([facility] st Contact Info) Description 05/13/2023 Telephone [facility] CHC MED & PEDS [address] [place], [place] [phone] Emilie Angel MD [address] [place] [address] Nurse Triage Social History Tobacco Use Types [...] didn't answer. Left voice message to call [facility] triage line [phone] * Telephone Encounter - Preston Salvador - 05/13/2023 2:48 PM EST Symptom: Urine Symptoms Outcome: Schedule a same-day appointment or talk to a nurse or provider today Reason: Caller denied all higher acuity questions documented in this encounter Plan of Treatment Not on file documented as of this encounter Visit Diagnoses Not on filedocumented in this encounter Care Teams Dip Guider Stoves Relationship Specialty Start Date End Date Emilie Angel MD [address] [place] [address] PCP - General Family Medicine 08/26/19 02/23/25 Reji Miguel CNP [address] [place] [address] PCP - General Family Medicine 02/24/25 documented as of this encounter
--- OUTSIDE RECORDS SUMMARY | 2025-03-21 11:21 | XMS_ITS | Encounter Summary ---
Author Organization [employer] Address [address] [facility] 7 [place] [address] Care Team Providers Care Ux Developer Designer Name Role Phone Emilie Angel MD Primary Care Provider [phone] Reji Miguel CNP Primary Care Provider [phone] Encounter Details Date Type Department Care Team (Late st Contact Info) Description 05/14/2023 Orders Only [facility] CHC MED & PEDS [address] [place], [place] [phone] Se Paris MD [address] [place] [address] Social History Tobacco Use Types Packs/Day Years [...] clean catch procedure / Unknown 05/14/2023 05/14/2023 Comment:[facility] - 05/16/2023 12:48 PM EST Urine Culture Report Result Urine Culture > 100,000 cfu/ml Urine Culture Mixed bacterial khadar characteristic of Urine Culture urogenital contamination. Specimen Source: Urine clean catch Se Paris MD LAB MICROBIOLOGY - GENERAL ORDERABLES Final Result [facility] [address] [place] [address] [phone] documented in this encounter Visit Diagnoses Not on filedocumented in this encounter Care Teams Ux Developer Designer Relationship Specialty Start Date End Date Emilie Angel MD [address] [place] [address] PCP - General Family Medicine 08/26/19 02/23/25 Reji Mgiuel CNP [address] [place] [address] PCP - General Family Medicine 02/24/25 documented as of this encounter
--- OUTSIDE RECORDS SUMMARY | 2025-03-21 11:21 | XMS_ITS | Patient Health Record ---
Author Organization [facility] Address [address] [place] [address] Care Team Providers Care Eyelet Maker Name Role Phone Emilie Angel Primary Care Provider Unavailabl e Gordon, Allison Unavailable [phone] Tari Morales Unavailable Unavailable Allergies No Known [...] : 14 days 01/17/2022 Active Vitamin D3 3309338 UNIT/GM as directed 01/17/2022 Active Vitamin B6 [...] X ray : Foot, left 3V 10/26/2012 11139-Wwkqbgjb Plate 03/03/2012 95419-Qiulhxox Plate 03/18/2013 29149-Xgtyczmb Plate Each Additional 33540-Dduuogki Plate Each Additional 07/201100, [id number]/INJECT, JOINT/BURSA 0 10/26/201268391, D9292-OVVZT/INJECT, JOINT/BURSA 0 01/12/2014 Insurance Providers Payer Name Payer Address Payer Phone Subscriber Number Group Number Insured Name Patient Relationship to Insured Coverage Start Date Coverage End Date [employer] Medicare Complete [address] [address] [place] [address] [id number] Batsheva Castelan Self - patient is the insured Medical (General) History Medical History History ICD Code sinus conditions liver disease headaches/migraines cholesterol Arthritis breast cancer Surgical History Surgery Date(Month/Year) breast cancer surgery 2009
--- OUTSIDE RECORDS SUMMARY | 2025-03-21 11:21 | XMS_ITS | Encounter Summary ---
Author Organization [employer] Address [address] [facility] 7t [place] [address] Care Team Providers Care Charge Rn Name Role Phone Reji Miguel CNP Primary Care Provider [phone] Reason for Visit * Reason Onset Date Comments fyi 03/15/2025 Encounter Details Date Type Department Care Team ([facility] Contact Info) Description 03/15/2025 Telephone [facility] MED & PEDS [address] [place], [place] [phone] Reji Miguel CNP [address] [place] [address] fyi Social History Tobacco Use Types Packs/Day Years [...] encounter Miscellaneous Notes * Telephone Encounter - Kiera Samson RN - 03/16/2025 10:15 AM EDT Noted * Telephone Encounter - Sushma Soto - 03/15/2025 3:49 PM EDT Tc from [place] at [facility] stating pt has been having slight elevated blood pressure 140/70 . Also pt is taking hydroCHLOROthiazide (HYDRODiuril) 25 MG tablet , anytime she feels leg swelling , not once a day as directed . Pt also failed Mini Cog test , could not do clock and only remembered 1 word. Contact Carolina at [phone] documented in this encounter Plan of Treatment Not on file documented as of this encounter Visit Diagnoses Not on filedocumented in this encounter Care Teams Charge Rn Relationship Specialty Start Date End Date Reji Miguel CNP [address] [place] [address] PCP - General Family Medicine 02/24/25 documented as of this encounter
--- OUTSIDE RECORDS SUMMARY | 2025-03-21 11:21 | XMS_ITS | Clinical Summary ---
Author Organization [employer] Address [address] [facility] 7[address] [place] [address] Care Team Providers Care Bilingual Social Worker Name Role Phone Reji Miguel LOWELL Primary Care Provider [phone] Allergies Active Allergy Reactions Criticality Noted Date Comments Pollen Extract 09/04/2023 Medications omeprazole (PriLOSEC) [address] capsuleIndicati ons:Gastroesoph ageal reflux disease without esophagitis TAKE 1 CAPSULE BY MOUTH EVERY DAY BEFORE A MEAL 90 capsule 1 07/15/19 23 Active Blood Pressure kitIndications: Blood pressure check To check the BP daily 1 kit 01/15/20 23 Active loratadine (Claritin) 10 MG tablet TAKE 1 TABLET BY MOUTH EVERY DAY IN THE MORNING 90 tablet 09/29/19 24 Active hydrOXYzine HCl (Atarax) 10 MG tablet Take 1 tablet (10 mg) by mouth every 6 (six) hours if needed for anxiety. 90 tablet 1 05/03/20 24 Active cholecalciferol (Vitamin D-3) 25 MCG (1000 UT) capsule Take 1 capsule (25 mcg) by mouth Once per day. 30 capsule 11 05/03/20 24 025 Active simvastatin (Zocor) 20 MG tabletIndicatio ns:Hypercholest eremia TAKE 1 TABLET BY MOUTH EVERY DAY 90 tablet 5 05/03/20 24 Active sertraline (Zoloft) 25 MG tablet Take 1 tablet (25 mg) by mouth Once per day. 30 tablet 11 09/28/19 25 026 Active celecoxib (CeleBREX) 50 MG capsule TAKE 1 CAPSULE BY MOUTH 2 TIMES DAILY 60 capsule 12/28/19 25 Active hydroCHLOROthia zide (HYDRODiuril) 25 MG tablet Take 1 tablet (25 mg) by mouth Once per day. 30 tablet 11 03/21/20 25 026 Active hydroCHLOROthia zide (HYDRODiuril) 25 MG tablet Take 1 tablet (25 mg) by mouth Once per day. 30 tablet 11 09/28/19 25 025 Discontinued(Re order (will not trigger notification to Pharmacy)) Active Problems Problem Noted Date Diagnosed Date Benign neoplasm of skin of trunk 09/23/2023 Obesity 09/04/2023 Assessment & Plan (09/05/2023 1:55 AM EDT): Discussed calorie deficit, recommended reduction of 20-30% of maintenance calories; delivery aide referral offered. Recommended to decrease soda and sugary beverage consumption. Recommended at least 20 g per meal of protein to assist with satiety. Recommended at least 150 min/week of moderate intensity exercise. Patient would like a referral to [facility] Bilateral impacted cerumen 09/04/2023 Assessment & Plan (09/04/2023 12:59 PM EDT): Will send debrox gtt and will schedule appt with nursing for lavage. Actinic keratosis 07/10/2023 Acute effect of ultraviolet radiation on normal skin 12/31/2022 Hyperlipidemia 11/26/2022 Melanocytic nevus of trunk 10/31/2022 Hemangioma of skin and subcutaneous tissue 10/31 Surgical follow-up care 10/24/2022 Basal cell carcinoma (BCC) of face 10/17/2022 Arthritis 07/30/2022 Basal cell carcinoma (BCC) of skin of trunk 06/2022 Gastroesophageal reflux disease 07/30/2022 History of malignant neoplasm of skin 07/30/2022 Inflamed seborrheic keratosis 07/30/2022 Neoplasm of uncertain behavior of skin Hypercholesterolemia 07/30/2022 Disorder of pigmentation 07/30/2022 Malignant neoplasm of upper- outer quadrant of female breast (CMS/HCC) 07/15/2010 Resolved Problems Problem Noted Date Diagnosed Date Resolved Date Upper respiratory tract infection 09/04/2023 05/03/2024 Assessment & Plan (09/04/2023 12:59 PM EDT): Will send trial of loratidine. Encounters Date Type Department Care Team Description 03/21/2025 9:00 AM EDT Office Visit [facility] [address] [place] [address] Reji Miguel CNP Encounter for physical examination (Primary Dx); Chronic pain of right knee; Primary hypertension; Anxiety 03/21/2025 Travel 03/17/2025 Telephone [facility] [address] [place] [address] Reji Miguel CNP chart prep 03/15/2025 Telephone [facility] [address] [place] [address] Reji Miguel CNP fyi 03/14/2025 Patient Outreach [address] [address] Reji Miguel CNP Pre-visit Planning (SDOH screening completed on 09/27/24) 03/01/2025 Telephone [facility] [address] [place] [address] Reji Miguel CNP Referral 02/23/2025 Results Follow-Up [facility] [address] [place] [address] Se Paris MD Prothrombin Time-INR, Ferritin, Iron And Total Iron Binding Capacity, Hepatitis Panel, General 02/21/[address] [address] Emilie Angel MD lab order question 02/20/2025 Results Follow-Up [facility] [address] [place] [address] Shahla Drake RN CBC auto differential, Prothrombin Time-INR, Hepatic Function Panel 02/20/2025 Orders Only [facility] [address] [place] [address] Se Paris MD Transaminitis (Primary Dx) 02/17/2025 3:30 PM EDT Office Visit [facility] [address] [place] [address] Se Paris MD Senile purpura ([facility]) (Primary Dx) 02/17/2025 Travel 02/13/2025 Telephone [facility] [address] [facility] [place], [place] [phone] mEilie Angel MD Nurse Triage 12/26/2024 Refill [facility] [address] [place], [place] [phone] Emilie Angel MD 12/22/2024 Telephone [facility] [address], [place] [phone] Emilie Angel MD Hypertension from Last 3 Months Immunizations Immunization Administration [...] Mass Index 30.11 03/21/2025 8:59 AM EDT Plan of Treatment Health Maintenance Due Date Last Done Comments CT Colonography 1954 Colonoscopy 1954 FIT 1954 Sigmoidoscopy 1954 Derm Melanoma Skin Check 01/13/1955 FOBT 11/09/2024 11/10/2023 Mammogram 04/19/2025 04/19/2024, 04/01, 11/16/2020 Alcohol/Substance Use Screening 09/27/2025 09/27/2024 SDOH Screening 09/27/2025 09/27/2024 Influenza Vaccine (#1) 2025 2, 02/24/2020, 04/05/2018, Additional history exists Postponed from 01/30/2025 (Patient Refused) COVID-19 Vaccine ( - season) 2026 03/13/2022, 07/26/2020, 07/05/2020 Postponed from 01/30/2025 (Patient Refused) Depression Screening 03/21/2026 03/21/2025, 03/21/20 Pneumococcal Vaccine: 50+ Years (2 of 2 - PPSV23) 03/21/2026 09/20/2021 Postponed from 09/20/2022 (Patient Refused) Tobacco Screening 03/21/2026 03/21/2025 Zoster Vaccines (2 of 3) 03/21/2026 07/18/2015 Pos tponed from 09/12/2015 (Patient Refused) Colorectal Cancer Screening 11/09/2026 FIT DNA/Cologuard 11/09/2026 11/10/2023 Lipid Panel 05/03/2029 05/03/2024, 09/30, 07/08/2023, Additional history exists RSV Patients and Patients Aged 60 years or older (1 - 1-dose 75+ series) 2029 DTaP/Tdap/Td Vaccines (3 - Td or Tdap) 10/27/2033 10/28/2023, 10/01/2012, 05/01/2004 Hepatitis C Screening Completed 02/22/2025 , 11/26/2022, 04/16/2021 HIB Vaccines Aged Out No longer eligi [...] IGM Routine 02/22/2025 1:54 PM EDT Transaminitis HEPATIC [...] for screening for malignant neoplasm of colon from Last 3 Months or Most Recently Relevant to Health Maintenance Results * Hepatitis Panel, General (02/22/2025 1:54 PM EDT) Hepatitis A IgM Nonreactive Nonreactive [facility] Comment:IgM antibodies to NARVAEZ V not detected; does not exclude earlyacute or recovered HAV infection. ~Hepatitis B Surface Antibody REACTIVE Nonreactive [facility] Comment:REACTIVE: > 11.99 mI U/mL Hepatitis B Core Antibody Nonreactive Nonreactive [facility] Hepatitis C Antibody Nonreactive Nonreactive [facility] Comment:Antibodies to HCV no t detected; does not exclude early acuteHCV infection. Hepatitis B Surface Ag Negative Negative [facility] Blood Venous blood specimen / Unknown 02/22/2025 1:54 PM EDT 02/22/2025 2:32 PM EDT us Se Paris MD LAB BLOOD ORDERABLES Final Result Performing Organization Address [facility] de Phone Number [facility] [address] [place] [phone] * Iron And Total Iron Binding Capacity (02/22/2025 1:54 PM EDT) Pathologist [facility] Iron 123 30 - 160 mcg/dL [facility] Total Iron Binding Capacity 283 228 - 428 mcg/dL [facility] Percent Iron Saturation 43 15 - 50 % [facility] Unsaturated Iron Binding 160 ug/dL [facility] Blood Venous blood specimen / Unknown 02/22/2025 1:54 PM EDT 02/22/2025 2:32 PM EDT us Se Paris MD LAB BLOOD ORDERABLES Final Result Performing Organization Address [facility] Number [facility] [address] [place] [phone] * Prothrombin Time-INR (02/22/2025 1:54 PM EDT) Only the most recent of2 resultswithin the time period is included. Prothrombin Time 11.3 10.9 - 12.4 SEC [facility] INTERNATIONAL NORM RATIO 1.0 0.9 - 1.1 [facility] Comment:INTERNATIONAL NORMAL IZED RATIO (INR) [...] BLOOD ORDERABLES Final Result Performing Organization Address [facility] de Phone Number [facility] [address] [place] [phone] * Immunoglobulins, Quantitative, IgA, IgG, IgM (02/22/2025 1:54 PM EDT) IMMUNOGLOBULIN G 776 600 - 1540 mg/dL [facility] IMMUNOGLOBULIN A 185 70 - 320 mg/dL [facility] Immunoglobulin M 125 50 - 300 mg/dL [facility] Comment:THIS TEST WAS PERFOR MED AT:[facility] [place] [phone] LIMON MD Blood Venous blood specimen / Unknown 02/22/2025 1:54 PM EDT 02/22/2025 2:32 PM EDT us Se Paris MD LAB BLOOD ORDERABLES Final Result Performing Organization Address [facility] de Phone Number [facility] [address] [place] [phone] * Ferritin (02/22/2025 1:54 PM EDT) Ferritin 141 10 - 250 ng/mL [facility] Blood Venous blood specimen / Unknown 02/22/2025 1:54 PM EDT 02/22/2025 2:32 PM EDT Se Paris MD LAB BLOOD ORDERABLES Final Result Performing Organization Address [facility] de Phone Number [facility] [address] [place] [address] [phone] * (ABNORMAL) CBC auto differential (02/17/2025 3:39 PM EDT) White Blood Count 6.8 4.8 - 10.8 X10*3/uL [facility] Red Blood Count 4.57 4.20 - 5.50 X10*6/uL [facility] Hemoglobin 14.5 12.0 - 16.0 g/dl [facility] Hematocrit 43.1 37.0 - 47.0 % [facility] Mean Corpuscular Volume 94.3 80.0 - 98.0 fL [facility] Mean Corpuscular Hemoglobin 31.7 27.0 - 33.0 pg [facility] Mean Corpuscular HGB Conc 33.6 31.0 - 35.0 g/dl [facility] Red Cell Distribution Width 12.5 11.0 - 16.0 % [facility] Platelet Count 300 160 - 400 X10*3/uL [facility] Mean Platelet Volume 10.9 9.4 - 12.3 fL [facility] Neutrophils Percent Auto 48.9 45 - 73 % [facility] Imm Gran Pct Auto 0.1 0.0 - 0.4 % [facility] Lymphocytes Percent Auto 42.3(H) 20 - 40 % [facility] Monocytes Percent Auto 6.9 2 - 11 % [facility] Eosinophils Percent Auto 0.9 0 - 4 % [facility] Basophils Percent Auto 0.9 0 - 2 % [facility] NRBC Pct Auto 0.0 0.0 - 0.2 /100WBC [facility] Neutrophils Absolute Auto 3.4 2.0 - 8.3 x10*3/uL [facility] Imm Gran Abs Auto 0.01 0.00 - 0.03 X10*3/uL [facility] Lymphocytes Absolute Auto 2.9 1.2 - 4.9 X10*3/uL [facility] Monocytes Absolute Auto 0.5 0.1 - 1.2 X10*3/uL [facility] Eosinophils Absolute Auto 0.1 0.0 - 0.4 X10*3/uL [facility] Basophils Absolute Auto 0.1 0.0 - 0.2 X10*3/uL [facility] NRBC Abs Auto 0.000 0.0 - 0.012 X10*3/uL [facility] Blood Venous blood specimen / Unknown 02/17/2025 3:39 PM EDT 02/17/2025 5:49 PM EDT us Se Paris MD LAB BLOOD ORDERABLES Final Result Performing Organization Address City/[facility]/ZIP Co de Phone Number [facility] [address] [place] [phone] * (ABNORMAL) Hepatic Function Panel (02/17/2025 3:39 PM EDT) Bilirubin, Total 0.5 0.0 - 1.0 mg/dL [facility] Bilirubin, Direct 0.2 0.0 - 0.5 mg/dL [facility] Aspartate Amino Transferase 35(H) 5 - 31 U/L [facility] Alanine Aminotransferase 45(H) 0 - 31 U/L [facility] Total Protein 6.9 6.5 - 8.0 g/dL [facility] Albumin Level 4.5 3.5 - 5.0 g/dL [facility] Alkaline Phosphatase 60 39 - 117 U/L [facility] Blood Venous blood specimen / Unknown 02/17/2025 3:39 PM EDT 02/17/2025 5:54 PM EDT us Se Paris MD LAB BLOOD ORDERABLES Final Result Performing Organization Address City/[facility]/ZIP Co de Phone Number [facility] [address] [place] [phone] * (ABNORMAL) Lipid Panel, Standard (05/03/2024 10:37 AM EST) Triglycerides 108 <150 mg/dL [facility] Comment:Desirable Triglyceri de: less than 150 mg/dLBorderline High Triglyceride 150-199 mg/dLHigh Triglyceride: 200-499 mg/dLVery High Triglyceride: greater than or equal to 5OO mg/dL Cholesterol 213(H) <200 mg/dL [facility] Comment:Desirable Cholestero l: less than 200 mg/dLBorderline High Cholesterol: 200-239 mg/dLHigh Cholesterol: greater than 239 mg/dL LDL Cholesterol Calculated 134(H) <100 mg/dL [facility] Comment:Desirable LDL: less than 100 mg/dLNear Optimal/Above Optimal LDL: 110- 129 mg/dLBorderline High LDL: 130-159 mg/dLHigh LDL: 160-189 mg/dLVery High LDL: greater than or equal to 190 mg/dL HDL Cholesterol 58 >40 mg/dL [facility] Comment:Desirable HDL: great er than 40 mg/dL Note: This HDL assay may give artificially low results in patients with liver disease. Blood Venous blood specimen / Unknown 05/03/2024 10:37 AM EST 05/03/2024 1:35 PM EST Emilie Angel MD LAB BLOOD ORDERABLES Final Resul t [facility] [address] [place] [phone] * Hm Mammography (04/19/2024 9:25 AM EST) Anatomical Region Laterality Modality Other Historical Provider HEALTH MAINTENANCE Final Result * Cologuard?? colon cancer screening (11/10/2023 11:30 AM EDT) Cologuard Result Negative Negative 11/13/19 24 6:15 PM EDT [facility] (CLIA #:[id number]) Comment: NEGATIVE TEST RESULT. A negative Cologuard [...] (Sandy Rodríguez al, N Engl J Med 2014;370(14):3525-8392) The normal value (reference range) for this assay is negative. COLOGUARD RE-SCREENING RECOMMENDATION: Periodic colorectal cancer screening is an important part of preventive healthcare for asymptomatic individuals at average risk for colorectal cancer. Following a negative Cologuard result, the [place] Cancer Society and U.S. Multi-Society Task Force screening guidelines recommend a Cologuard re-screening interval of 3 years. References: [place] [employer] Guideline for Colorectal Cancer Screening: https://www.cancer.org/cancer/lrods-gnzssl-yktvxo/vcvrdyyqt-yvrvcqzlp-lylrjle/ac s-rec ommendations.html.; Rafal QUIJANO, Abraham PEREZ, Estela VieraK, Colorectal Cancer Screening: Recommendations for Physicians and Patients from the U.S. Multi-Society Task Force on Colorectal Cancer Screening , Am J Gastroenterology 2017; 112:2044-4901. TEST DESCRIPTION: Composite algorithmic analysis of stool [...] Neely et al, N Engl J Med 2014;370(14):4197-4340.) Cologuard may produce a false negative or false positive result (no colorectal cancer or precancerous polyp present at colonoscopy follow up). A negative Cologuard test result does not guarantee the absence of CRC or advanced adenoma (pre-cancer). The current Cologuard screening interval is every 3 years. ([place] Cancer Society and U.S. Multi-Society Task Force). Cologuard performance data in a 10,000 patient pivotal study using colonoscopy as the reference method can be accessed at the following location: www.The Smart[employer] Physical.eTutor/results. Additional description of the Cologuard test process, warnings and precautions can be found at www.MicronotesogLeadiDrd.eTutor. Stool specimen (specimen) 11/10/2023 11:30 AM EDT 11/11/2023 11:31 AM EDT us Emilie Angel MD LAB MOLECULAR DIAGNOSTICS ORDERA BLES Final Result [facility] (CLIA #:[id number]) [address] [place] [address], from Last 3 Months or Most Recently Relevant to Health Maintenance Insurance [facility] [employer] HMO Care Teams Bilingual Social Worker Relationship Specialty Start Date End Date Reji Miguel CNP [address] [place] [address] [place] [address] PCP - General Family Medicine 02/24/25
--- OUTSIDE RECORDS SUMMARY | 2025-03-21 11:21 | XMS_ITS | Encounter Summary ---
Author Organization [employer] Address [address] [facility] [address]t [place] [address] Care Team Providers Care Toy Designer Name Role Phone Emilie Angel MD Primary Care Provider [phone] Reji Miguel CNP Primary Care Provider [phone] Encounter Details Date Type Department Care Team ([facility] st Contact Info) Description 02/23/2025 Results Follow-Up [facility] [address] [place], [place] [phone] Se Paris MD [address] [place] [address] Prothrombin Time-INR, Ferritin, Iron And Total Iron Binding Capacity, Hepatitis Panel, General Social History Tobacco Use Types Packs/Day Years [...] on filedocumented in this encounter Care Teams Toy Designer Relationship Specialty Start Date End Date Emilie Angel MD [address] [place] [address] PCP - General Family Medicine 08/26/19 02/23/25 Reji Miguel CNP [address] [place] [address] PCP - General Family Medicine 02/24/25 documented as of this encounter
--- OUTSIDE RECORDS SUMMARY | 2025-03-21 11:21 | XMS_ITS | Encounter Summary ---
Author Organization [employer] Address [address] [facility] [address] [address] [place] [address] Care Team Providers Care Photographic Developer And Printer Name Role Phone Emilie Angel MD Primary Care Provider [phone] Reji Miguel CNP Primary Care Provider [phone] Encounter Details Date Type Department Care Team (Late st Contact Info) Description 04/20/2024 Orders Only [facility] [address] [place], [place] [phone] ProviderSean MD Social History Tobacco Use Types [...] AM EST) Anatomical Region Laterality Modality Other us Historical Provider HEALTH MAINTENANCE Final Result documented in this encounter Visit Diagnoses Not on filedocumented in this encounter Care Teams Photographic Developer And Printer Relationship Specialty Start Date End Date Emilie Angel MD [address] [place] [phone] PCP - General Family Medicine 08/26/19 02/23/25 Reji Miguel CNP [address] [place] [address] PCP - General Family Medicine 02/24/25 documented as of this encounter
--- OUTSIDE RECORDS SUMMARY | 2025-03-21 11:21 | XMS_ITS | Encounter Summary ---
Author Organization [employer] Address [address] [facility] 7 [place] [address] Care Team Providers Care Area Supervisor Name Role Phone Emilie Angel MD Primary Care Provider Reji Miguel CNP Primary Care Provider [phone] Encounter Details Date Type Department Care Team (Late st Contact Info) Description 01/14/2023 Orders Only [facility] [address] [place], [place] [phone] Se Paris MD [address] [place] [address] Blood pressure check (Primary Dx) Social History [...] hypertension documented in this encounter Care Teams Area Supervisor Relationship Specialty Start Date End Date Emilie nAgel MD [address] [place] [phone] PCP - General Family Medicine 08/26/19 02/23/25 Reji Miguel CNP [address] [place], [place] [phone] PCP - General Family Medicine 02/24/25 documented as of this encounter
[2025-03-21 14:48] LABS: MANUAL DIFF FLAG NO
[2025-03-21 14:53] LABS: Hematocrit 44.7 % (37.0-47.0); Hemoglobin 14.9 g/dl (12.0-16.0); Imm Gran Abs Auto 0.01 X10*3/uL (0.00-0.03); Imm Gran Pct Auto 0.2 % (0.0-0.4); Lymphocytes Absolute Auto 2.5 X10*3/uL (1.2-4.9); Mean Corpuscular HGB Conc 33.3 g/dl (31.0-35.0); Mean Corpuscular Hemoglobin 31.2 pg (27.0-33.0); Mean Corpuscular Volume 93.5 fL (80.0-98.0); NRBC Abs Auto 0.000 X10*3/uL (0.0-0.012); NRBC Pct Auto 0.0 /100WBC (0.0-0.2); Platelet Count 319 X10*3/uL (160-400); Red Blood Count 4.78 X10*6/uL (4.20-5.50); White Blood Count 5.4 X10*3/uL (4.8-10.8)
[2025-03-21 18:10] LABS: Alanine Aminotransferase 43 U/L (0-31); Albumin Level 4.5 g/dL (3.5-5.0); Alkaline Phosphatase 66 U/L (39-117); Aspartate Amino Transferase 35 U/L (5-31); Cholesterol 216 mg/dL (<200); HDL Cholesterol 52 mg/dL (>40); Total Protein 7.1 g/dL (6.5-8.0); Triglycerides 133 mg/dL (<150)
== END 2025-03-21 09:55 | disposition home or self-care (01) ==
LOC: HO.CHCLDS 09:54
DX: Z00.00 Encounter for general adult medical examination without abnormal findings (principal); Z13.6 Encounter for screening for cardiovascular disorders
CPT/HCPCS: 36415; 80061; 80076; 85025

== ENCOUNTER 2025-04-20 07:45 | Outpatient (REF) | payer MEDICARE, SELFPAY ==
--- NOTE | ~2025-04-20 | US_ITS ---
EXAMINATION: US COMPLETE ABDOMEN WITH LIVER ELASTOGRAPHY CLINICAL INFORMATION: Transaminitis COMPARISON: None available. TECHNIQUE: Real-time imaging of the abdominal viscera. Noninvasive ultrasound liver fibrosis assessment is performed using [employer] ElastPQ point quantification shear wave elastography (pSWE) with a C5-2 MHz transducer. Multiple elastography samples are obtained. FINDINGS: PANCREAS: The visualized pancreatic head and body are normal in appearance. The remainder of the pancreas is obscured from visualization by the overlying bowel gas. ABDOMINAL AORTA: The proximal and distal aorta are partially obscured by bowel gas. No aneurysmal dilatation of the visualized aorta. INFERIOR VENA CAVA: Visualized portions are normal. LIVER: Increased parenchymal echogenicity. Subtle hypoattenuation adjacent to the gallbladder fossa probably reflecting fatty sparing. No intrahepatic biliary dilatation.. No focal lesion or intrahepatic biliary duct dilatation. The right lobe measures 13.6 cm in length. The left lobe measures 18.1 cm in length. Portal flow is hepatopedal Shear wave liver elastography median stiffness is 1.37 m/s (reference: normal median stiffness is 1.3 m/s or less). IQR/median stiffness to assess sampling precision is 0.13 (reference: good quality data set is IQR/median stiffness of 0.15 or less). GALLBLADDER: The gallbladder is physiologically distended without evidence of stones, sludge, polyps, wall thickening or pericholecystic fluid. COMMON BILE DUCT: Normal in caliber measuring 0.4 cm in diameter. RIGHT KIDNEY: No hydronephrosis. No renal calculi or focal parenchymal lesions. The kidney measures 10.5 cm in maximum dimension. LEFT KIDNEY: No hydronephrosis. No renal calculi. 2.1 cm anechoic avascular cyst... The kidney measures 10.7 cm in maximum dimension. SPLEEN: Unremarkable. The spleen measures 8.8 cm in maximum dimension. FREE FLUID: None seen. US/US abdomen comp w elastography IMPRESSION: 1. Increased parenchymal echogenicity more commonly seen as hepatic steatosis. No suspicious lesions. No intrahepatic biliary duct dilatation. 2. Liver elastography: Median stiffness 1.3 cm/s *Liver Stiffness less than 1.7 m/s: In the absence of other known clinical signs, rules out compensated advanced chronic liver disease. REFERENCE: Society of Radiologists in Ultrasound Liver Stiffness Thresholds (2020): LIVER STIFFNESS THRESHOLDS: *Liver Stiffness equal or less than 1.3 m/s: High probability of being normal. *Liver Stiffness less than 1.7 m/s: In the absence of other known clinical signs, rules out compensated advanced chronic liver disease. *Liver Stiffness 1.7-2.1 m/s: Suggestive of compensated advanced chronic liver disease but need further test for confirmation. *Liver Stiffness over 2.1 m/s: Rules in compensated advanced chronic liver disease. *Liver Stiffness over 2.4 m/s: Suggestive of clinically significant portal hypertension. QUALITY OF DATA SET: *IQR/Median value equal or less than 0.15 implies a quality data set. *IQR/Median value over 0.15 implies a poor quality data set. SIGNIFICANT CHANGE FROM PRIOR EXAM: Significant change if liver stiffness measurement is 10% or greater from prior exam. OTHER CONSIDERATIONS: The stage of liver fibrosis may be overestimated in the setting of acute hepatitis, liver inflammation, elevated liver function tests, hepatic vascular congestion, obstructive cholestasis, non-fasting state, and infiltrative diseases such as amyloidosis and lymphoma. In some patients with NAFLD, the liver stiffness thresholds for compensated advanced chronic liver disease may be lower. In causes other than viral hepatitis and NAFLD, liver stiffness thresholds are not well established. Electronically signed by: Nixon Ramirez MD 04/20/2025 04:09 PM [facility]
--- OUTSIDE RECORDS SUMMARY | 2025-04-20 07:48 | XMS_ITS | Encounter Summary ---
Author Organization [employer] Address [address] [facility] 7t [place] [address] Care Team Providers Care Char Filter Tank Tender Head Name Role Phone Reji Miguel CNP Primary Care Provider [phone] Reason for Visit * Reason Onset Date Comments Referral 04/05/2025 Encounter Details Date Type Department Care Team ([facility] st Contact Info) Description 04/05/2025 Telephone [facility] [address] [place], [place] [phone] Reji Miguel CNP [address] [place] [address] Referral Social History Tobacco Use Types Packs/Day [...] * Telephone Encounter - Errol Blake - 04/05/2025 9:07 AM EST Tc from pt reporting the facility she was referred to for physical therapy does not take her insurance and is requesting to be referred somewhere else. Any questions contact pt at [phone] documented in this encounter Plan of Treatment Not on file documented as of this encounter Visit Diagnoses Not on filedocumented in this encounter Additional Health Concerns Assessment Noted Time PHQ-9 Depression Total Score: 8 03/21/20 9:00 AM EDT documented as of this encounter Care Teams Char Filter Tank Tender Head Relationship Specialty Start Date End Date Reji Miguel CNP [address] [place] [phone] PCP - General Family Medicine 02/24/25 documented as of this encounter
--- OUTSIDE RECORDS SUMMARY | 2025-04-20 07:48 | XMS_ITS | Encounter Summary ---
Author Organization [employer] Address [address] [facility] [address] [place] [address] Care Team Providers Care High School Music Instructor Name Role Phone Emilie Angel MD Primary Care Provider Reji Miguel CNP Primary Care Provider [phone] Encounter Details Date Type Department Care Team (Late st Contact Info) Description 05/22/2024 Orders Only [facility] [address] [place], [place] [phone] ProviderSean MD Social History Tobacco Use Types Packs/Day Years Used Date Smoking Tobacco: Never Smokeless Tobacco: Never Alcohol Use Standard Drinks/Week Comments Never 0 (1 standard drink = 0.6 oz pur e alcohol) Housing Stability Answer Date Recorded What is your housing situation today? I have awa khan 10/16/[address] you li [...] on filedocumented in this encounter Care Teams High School Music Instructor Relationship Specialty Start Date End Date Emilie Angel MD [address] [place] [phone] PCP - General Family Medicine 08/26/19 02/23/25 Reji Miguel CNP [address] [place] [phone] PCP - General Family Medicine 02/24/25 documented as of this encounter
--- OUTSIDE RECORDS SUMMARY | 2025-04-20 07:48 | XMS_ITS | Encounter Summary ---
Author Organization [email or web address] Address [address] [facility] 7t [place] [address] Care Team Providers Care Equip Maint Eng Name Role Phone Reji Miguel CNP Primary Care Provider [phone] Reason for Visit * Reason Onset Date Comments Referral 03/01/2025 Encounter Details Date Type Department Care Team ([facility] st Contact Info) Description 03/01/2025 Telephone [facility] CH[facility] MED & PEDS [address] [place], [place] [phone] Reji Miguel CNP [address] [place], [place] [phone] Referral Social History Tobacco Use Types Packs/Day [...] referral for [facility]. Contact pt at [phone] * Telephone Encounter - Preston Salvador - 03/07/2025 4:03 PM EDT Tc from pt requesting a call back regarding message prior stating she has not heard any updates regarding referral. Please contact pt at [phone]. * Telephone Encounter - Sushma Soto - 03/01/2025 9:06 AM EDT Tc from pt requesting for referral to radiology to be redirected to [facility] [place] [address] Contact pt at [phone] documented in this encounter Plan of Treatment Not on file documented as of this encounter Visit Diagnoses Not on filedocumented in this encounter Care Teams Equip Maint Eng Relationship Specialty Start Date End Date Reji Miguel CNP [address] [place] [address] PCP - General Family Medicine 02/24/25 documented as of this encounter
--- OUTSIDE RECORDS SUMMARY | 2025-04-20 07:48 | XMS_ITS | Clinical Summary ---
Author Organization [employer] Address [address] [facility] 7t [place] [address] Care Team Providers Care Slurry Plant Operator Name Role Phone Reji Miguel LOWELL Primary Care Provider [phone] Allergies Active Allergy Reactions Criticality Noted Date Comments Pollen Extract 09/04/2023 Medications omeprazole (PriLOSEC) [address] Kika ns:Gastroesophag eal reflux disease without esophagitis TAKE [...] EVERY DAY 90 tablet 5 05/03/2024 Active sertraline (Zoloft) 25 MG tablet Take 1 tablet (25 mg) by mouth Once per day. 30 tablet 11 09/27/2024 09/28/19 26 Active celecoxib (CeleBREX) 50 MG capsule TAKE 1 CAPSULE BY MOUTH 2 TIMES DAILY 60 capsule 12/27/2024 Active hydroCHLOROthiaz carlin (HYDRODiuril) 25 MG tablet Take 1 tablet (25 mg) by mouth Once per day. 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 Recommended to decrease soda and sugary beverage consumption. Recommended at least 20 g per meal of protein to assist with satiety. Recommended at least 150 min/week of moderate intensity exercise. Patient would like a referral to Deputy Sheriff/Investigator Bilateral impacted cerumen 09/04/2023 Assessment & Plan [...] 07/30/2022 Neoplasm of uncertain behavior of skin 3 Hypercholesterolemia 07/30/2022 Disorder of pigmentation 07/30/2022 Malignant neoplasm of upper- outer quadrant of female breast (CMS/HCC) 07/15/2010 Resolved Problems Problem Noted Date Diagnosed Date Resolved Date Upper respiratory tract infection 09/04/2023 05/03/2024 Assessment & Plan (09/04/2023 12:59 PM EDT): Will send trial of loratidine. Encounters Date Type Department Care Team Description 04/05/2025 Telephone [facility] CHC MED & PEDS [address] [place] [address] Reji Miguel CNP Referral 03/21/2025 9:00 AM EDT Office Visit [facility] MED & PEDS [address] [place] [address] Reji Miguel CNP Encounter for physical examination (Primary Dx); Chronic pain of right knee; Primary hypertension; Anxiety 03/21/2025 Travel 03/17/2025 Telephone [facility] MED & PEDS [address] [place] [address] Reji Miguel CNP chart prep 03/15/2025 Telephone [facility] MED & PEDS [address] [place] [address] Reji Miguel CNP fyi 03/14/2025 Patient Outreach [address] [address] Reji Miguel CNP Pre-visit Planning (SDOH screening completed on 09/27/24) 03/01/2025 Telephone [facility] MED & PEDS [address] [place] [address] Reji Miguel CNP Referral 02/23/2025 Results Follow-Up [facility] MED & PEDS [address] [place] [address] Se Paris MD Prothrombin Time-INR, Ferritin, Iron And Total Iron Binding Capacity, Hepatitis Panel, General 02/21/2025 Telephone [facility] MEDICINE [address] [place] [phone] Emilie Angel MD lab order question 02/20/2025 Results Follow-Up [facility] MED & PEDS [address] [place] [address] Shahla Drake RN CBC auto differential, Prothrombin Time-INR, Hepatic Function Panel 02/20/2025 Orders Only [facility] MED & PEDS [address] [place] [address] Se Paris MD Transaminitis (Primary Dx) 02/17/2025 3:30 PM EDT Office Visit [facility] MED & PEDS [address] [place] [address] Se Paris MD Senile purpura (CMS/HCC) (Primary Dx) 02/17/2025 Travel 02/13/2025 Telephone [facility] MEDICINE [address] [place], [place] [phone] Emilie Angel MD Nurse Triage from Last 3 Months Immunizations Immunization Administration [...] Screening 09/27/2025 09/27/2024 Influenza Vaccine (#1) 2025 , 02/24/2020, 04/05/2018, Additional history exists Postponed from 01/30/2025 (Patient Refused) COVID-19 Vaccine ( season) 2026 03/13/2022, 07/26/2020, 07/05/2020 Postponed from 01/30/2025 (Patient Refused) Depression Screening 03/21/2026 03/21/2025, 03/21/20 25 Pneumococcal Vaccine: 50+ Years (2 of 2 - PCV20 or PCV21) 03/21/2026 09/20/2021 Postponed from 09/20/2022 (Patient Refused) Tobacco Screening 03/21/2026 03/21/2025 Zoster Vaccines (2 of 3) 03/21/2026 07/18/2015 Pos tponed from 09/12/2015 (Patient Refused) Colorectal Cancer Screening 11/09/2026 FIT DNA/Cologuard 11/09/2026 11/10/2023 RSV Patients and Patients Aged 60 years or older (1 - 1-dose 75+ series) 2029 Lipid Panel 03/21/2030 03/21/2025, 1207/2023, 10/28/2023, Additional history exists DTaP/Tdap/Td Vaccines (3 - Td or Tdap) [...] Diagnosis Comments CBC WITH AUTO DIFFERENTIAL Routine 03/21/2025 9:55 AM EDT Encounter for physical examination HEPATIC FUNCTION PANEL Routine 03/21/2025 9:55 AM EDT Encounter for physical examination LIPID PANEL, STANDARD Routine 03/21/2025 9:55 AM EDT Encounter for physical examination HEPATITIS PANEL, GENERAL Routine 02/22/2025 1:54 PM [...] 02/17/2025 3:39 PM EDT Senile purpura (CMS/HCC) HM MAMMOGRAPHY Routine 04/19/2024 9:25 AM EST LAB COLOGUARD COLON CANCER SCREEN Routine 11/10/2023 11:30 AM EDT Encounter for screening for malignant neoplasm of colon from Last 3 Months or Most Recently Relevant to Health Maintenance Results * (ABNORMAL) CBC auto differential (03/21/2025 9:55 AM EDT) Only the most recent of2 resultswithin the time period is included. White Blood Count 5.4 4.8 - 10.8 X10*3/uL [facility] Red Blood Count 4.78 4.20 - 5.50 X10*6/uL [facility] Hemoglobin 14.9 12.0 - 16.0 g/dl [facility] Hematocrit 44.7 37.0 - 47.0 % [facility] Mean Corpuscular Volume 93.5 80.0 - 98.0 fL [facility] Mean Corpuscular Hemoglobin 31.2 27.0 - 33.0 pg [facility] Mean Corpuscular HGB Conc 33.3 31.0 - 35.0 g/dl [facility] Red Cell Distribution Width 12.2 11.0 - 16.0 % [facility] Platelet Count 319 160 - 400 X10*3/uL [facility] Mean Platelet Volume 10.6 9.4 - 12.3 fL [facility] Neutrophils Percent Auto 41.5(L) 45 - 73 % [facility] Imm Gran Pct Auto 0.2 0.0 - 0.4 % [facility] Lymphocytes Percent Auto 45.7(H) 20 - 40 % [facility] Monocytes Percent Auto 9.3 2 - 11 % [facility] Eosinophils Percent Auto 2.2 0 - 4 % [facility] Basophils Percent Auto 1.1 0 - 2 % [facility] NRBC Pct Auto 0.0 0.0 - 0.2 /100WBC [facility] Neutrophils Absolute Auto 2.2 2.0 - 8.3 x10*3/uL [facility] Imm Gran Abs Auto 0.01 0.00 - 0.03 X10*3/uL [facility] Lymphocytes Absolute Auto 2.5 1.2 - 4.9 X10*3/uL [facility] Monocytes Absolute Auto 0.5 0.1 - 1.2 X10*3/uL [facility] Eosinophils Absolute Auto 0.1 0.0 - 0.4 X10*3/uL [facility] Basophils Absolute Auto 0.1 0.0 - 0.2 X10*3/uL [facility] NRBC Abs Auto 0.000 0.0 - 0.012 X10*3/uL [facility] Blood Venous blood specimen / Unknown 03/21/2025 9:55 AM EDT 03/21/2025 2:44 PM EDT [facility] LAB BLOOD ORDERABLES Clare l Result Performing Organization Address City/[facility]/ZIP Co de Phone Number [facility] [address] [place] [phone] [phone] * (ABNORMAL) Hepatic Function Panel (03/21/2025 9:55 AM EDT) Only the most recent of2 resultswithin the time period is included. Bilirubin, Total 0.5 0.0 - 1.0 mg/dL [facility] Bilirubin, Direct 0.2 0.0 - 0.5 mg/dL [facility] Aspartate Amino Transferase 35(H) 5 - 31 U/L [facility] Alanine Aminotransferase 43(H) 0 - 31 U/L [facility] Total Protein 7.1 6.5 - 8.0 g/dL [facility] Albumin Level 4.5 3.5 - 5.0 g/dL [facility] Alkaline Phosphatase 66 39 - 117 U/L [facility] Blood Venous blood specimen / Unknown 03/21/2025 9:55 AM EDT 03/21/2025 2:21 PM EDT [facility] LAB BLOOD ORDERABLES Clare l Result Performing Organization Address City/[facility]/ZIP Co de Phone Number [facility] [address] [place] [address] [phone] * (ABNORMAL) Lipid Panel, Standard (03/21/2025 9:55 AM EDT) Triglycerides 133 <150 mg/dL [facility] Comment:Desirable Triglyceri de: less than 150 mg/dLBorderline High Triglyceride 150-199 mg/dLHigh Triglyceride: 200-499 mg/dLVery High Triglyceride: greater than or equal to 5OO mg/dL Cholesterol 216(H) <200 mg/dL [facility] Comment:Desirable Cholestero l: less than 200 mg/dLBorderline High Cholesterol: 200-239 mg/dLHigh Cholesterol: greater than 239 mg/dL LDL Cholesterol Calculated 138(H) <100 mg/dL [facility] Comment:Desirable LDL: less than 100 mg/dLNear Optimal/Above Optimal LDL: 110- 129 mg/dLBorderline High LDL: 130-159 mg/dLHigh LDL: 160-189 mg/dLVery High LDL: greater than or equal to 190 mg/dL HDL Cholesterol 52 >40 mg/dL [facility] Comment:Desirable HDL: great er than 40 mg/dL Note: This HDL assay may give artificially low results in patients with liver disease. Blood Venous blood specimen / Unknown 03/21/2025 9:55 AM EDT 03/21/2025 2:21 PM EDT Reji Miguel CNP LAB BLOOD ORDERABLES Clare l Result Performing Organization Address [facility] Co de Phone Number [facility] [address] [place] [phone] * Hepatitis Panel, General (02/22/2025 1:54 PM EDT) [facility] Hepatitis A IgM Nonreactive Nonreactive [facility] Comment:IgM antibodies to NARVAEZ V not detected; does not exclude earlyacute or recovered HAV infection. ~Hepatitis B Surface Antibody REACTIVE Nonreactive [facility] Comment:REACTIVE: > 11.99 mI U/mL Hepatitis B Core Antibody Nonreactive Nonreactive [facility] Hepatitis C Antibody Nonreactive Nonreactive [facility] Comment:Antibodies to HCV no t detected; does not exclude early acuteHCV infection. Hepatitis B Surface Ag Negative Negative [facility] Blood Venous blood specimen / Unknown 02/22/2025 1:54 PM EDT 02/22/2025 2:32 PM EDT Se Paris MD LAB BLOOD ORDERABLES Final Result Performing Organization Address [facility] Co de Phone Number [facility] [address] [place] [phone] * Iron And Total Iron Binding Capacity (02/22/2025 1:54 PM EDT) Pathologist [facility] Iron 123 30 - 160 mcg/dL [facility] Total Iron Binding Capacity 283 228 - 428 mcg/dL [facility] Percent Iron Saturation 43 15 - 50 % [facility] Unsaturated Iron Binding 160 ug/dL [facility] Blood Venous blood specimen / Unknown 02/22/2025 1:54 PM EDT 02/22/2025 2:32 PM EDT us Se Paris MD LAB BLOOD ORDERABLES Final Result Performing Organization Address [facility] Co de Phone Number [facility] [address] [place] [phone] * Prothrombin Time-INR (02/22/2025 1:54 PM EDT) Only the most recent of2 resultswithin the time period is included. [facility] Prothrombin Time 11.3 10.9 - 12.4 SEC [facility] INTERNATIONAL NORM RATIO 1.0 0.9 - 1.1 [facility] Comment:INTERNATIONAL NORMAL IZED RATIO (INR) [...] BLOOD ORDERABLES Final Result Performing Organization Address [facility] Co de Phone Number [facility] [address] [place] [phone] * Immunoglobulins, Quantitative, IgA, IgG, IgM (02/22/2025 1:54 PM EDT) [facility] IMMUNOGLOBULIN G 776 600 - 1540 mg/dL [facility] IMMUNOGLOBULIN A 185 70 - 320 mg/dL [facility] Immunoglobulin M 125 50 - 300 mg/dL [facility] Comment:THIS TEST WAS PERFOR MED AT:[employer] [place] [phone] LIMON MD Blood Venous blood specimen / Unknown 02/22/2025 1:54 PM EDT 02/22/2025 2:32 PM EDT Se Paris MD LAB BLOOD ORDERABLES Final Result Performing Organization Address [facility]/ZIP Co de Phone Number [facility] [address] [place] [phone] * Ferritin (02/22/2025 1:54 PM EDT) Ferritin 141 10 - 250 ng/mL [facility] Blood Venous blood specimen / Unknown 02/22/2025 1:54 PM EDT 02/22/2025 2:32 PM EDT Se Paris MD LAB BLOOD ORDERABLES Final Result Performing Organization Address [facility] Co de Phone Number [facility] [address] [place] [phone] * Hm Mammography (04/19/2024 9:25 AM EST) Anatomical Region Laterality Modality Other Historical Provider HEALTH MAINTENANCE Final Result * Cologuard?? colon cancer screening (11/10/2023 11:30 AM EDT) Cologuard Result Negative Negative 11/13/19 6:15 PM EDT [employer] (CLIA #:[id number]) Comment: NEGATIVE TEST RESULT. A negative Cologuard [...] Neely et al, N Engl J Med 2014;370(14):0597-6481) The normal value (reference range) for this assay is negative. COLOGUARD RE-SCREENING RECOMMENDATION: Periodic colorectal cancer screening is an important part of preventive healthcare for asymptomatic individuals at average risk for colorectal cancer. Following a negative Cologuard result, the [place] Cancer Society and U.S. Multi-Society Task Force screening guidelines recommend a Cologuard re-screening interval of 3 years. References: [place] [employer] Guideline for Colorectal Cancer Screening: https://www.cancer.org/cancer/riwvf-fluvyi-qbyxra/ntnbghjae-fpispylqc-sltxpmq/ac s-rec ommendations.html.; Rafal DK, Abraham PEREZ, Estela VieraK, Colorectal Cancer Screening: Recommendations for Physicians and Patients from the U.S. Multi-Society Task Force on Colorectal Cancer Screening , Am J Gastroenterology 2017; 112:5867-1581. TEST DESCRIPTION: Composite algorithmic analysis of stool [...] Neely et al, N Engl J Med 2014;370(14):4317-0248.) Cologuard may produce a false negative or false positive result (no colorectal cancer or precancerous polyp present at colonoscopy follow up). A negative Cologuard test result does not guarantee the absence of CRC or advanced adenoma (pre-cancer). The current Cologuard screening interval is every 3 years. ([place] [employer] Society and U.S. Multi-Society Task Force). Cologuard performance data in a 10,000 patient pivotal study using colonoscopy as the reference method can be accessed at the following location: www.[employer].com/results. Additional description of the Cologuard test process, warnings and precautions can be found at www.[employer].fmrd.GraphOn. Stool specimen (specimen) 11/10/2023 11:30 AM EDT 11/11/2023 11:31 AM EDT us Emilie Angel MD LAB MOLECULAR DIAGNOSTICS ORDERA BRENNON Final Result [employer] (CLIA #:[id number]) [address] [place] [address], from Last 3 Months or Most Recently Relevant to Health Maintenance Insurance [facility] MEDICARE ADVANTAGE HMO Care Teams Slurry Plant Operator Relationship Specialty Start Date End Date Reji Miguel CNP [address] [place] [address] [place] [address] PCP - General Family Medicine 02/24/25
--- OUTSIDE RECORDS SUMMARY | 2025-04-20 07:48 | XMS_ITS | Encounter Summary ---
Author Organization [employer] Address [address] [place] [address] Care Team Providers Care Cattle Care Worker Name Role Phone Emilie Angel MD Primary Care Provider [phone] Reji Miguel CNP Primary Care Provider [phone] Reason for Visit * Reason Onset Date Comments Nurse Triage 02/13/2025 Encounter Details Date Type Department Care Team ([facility] st Contact Info) Description 02/13/2025 Telephone [facility] [address] [place] [address] Emilie Angel MD [address] [place], [place] [phone] Nurse Triage Social History Tobacco Use Types [...] on filedocumented in this encounter Care Teams Cattle Care Worker Relationship Specialty Start Date End Date Emilie Angel MD [address] [place] [phone] PCP - General Family Medicine 08/26/19 02/23/25 Reji Miguel CNP [address] [place] [phone] PCP - General Family Medicine 02/24/25 documented as of this encounter
--- OUTSIDE RECORDS SUMMARY | 2025-04-20 07:48 | XMS_ITS | Encounter Summary ---
Author Organization [employer] Address [address] [facility] [address] [place] [address] Care Team Providers Care Owner [employer] Name Role Phone Emilie Angel MD Primary Care Provider [phone] Reji Miguel CNP Primary Care Provider [phone] Encounter Details Date Type Department Care Team (Late st Contact Info) Description 04/20/2024 Orders Only [facility] MED & PEDS [address] [place], [place] [phone] ProviderSean MD Social History Tobacco Use Types [...] on filedocumented in this encounter Care Teams Owner [employer] Relationship Specialty Start Date End Date Emilie Angel MD [address] [place] [phone] PCP - General Family Medicine 08/26/19 02/23/25 Reji Miguel CNP [address] [place] [address] PCP - General Family Medicine 02/24/25 documented as of this encounter
--- OUTSIDE RECORDS SUMMARY | 2025-04-20 07:48 | XMS_ITS | Encounter Summary ---
Author Organization [employer] Address [address] [facility] 7t [place] [address] Care Team Providers Care Pinking Sewing Machine Operator Name Role Phone Emilie Angel MD Primary Care Provider [phone] Reji Miguel CNP Primary Care Provider [phone] Encounter Details Date Type Department Care Team ([facility] st Contact Info) Description 02/23/2025 Results Follow-Up [facility] MED & PEDS [address] [place], [place] [phone] Se Paris MD [address] [place] [address] Prothrombin Time-INR, Ferritin, Iron And Total Iron [...] on filedocumented in this encounter Care Teams Pinking Sewing Machine Operator Relationship Specialty Start Date End Date Emilie Angel MD [address] [place] [address] PCP - General Family Medicine 08/26/19 02/23/25 Reji Miguel CNP [address] [place] [address] PCP - General Family Medicine 02/24/25 documented as of this encounter
--- OUTSIDE RECORDS SUMMARY | 2025-04-20 07:48 | XMS_ITS | Encounter Summary ---
Author Organization [employer] Address [address] [place] [address] 7 [place] [address] Care Team Providers Care Elder Assistant Name Role Phone Emilie Angel MD Primary Care Provider [phone] Reji Miguel CNP Primary Care Provider [phone] Reason for Referral * Imaging (Routine) - Authorized Specialty Diagnoses / Procedures Referred By Contac t Referred To Contact Radiology Diagnoses Transaminitis Procedures US Abdomen Comp w elastography Se Paris MD [address] [place] [address] Phone: tel: fax: [address] Phone: tel: fax: Referral ID Status Reason Start Date Expiration Date V isits Requested Visits Authorized [id number] Authorized 02/20/2025 02/20/2026 1 1 Encounter Details Date Type Department Care Team (Late st Contact Info) Description 02/20/2025 Orders Only [facility]S [address] [place], [place] [phone] Se Paris MD [address] [place], [place] [phone] Transaminitis (Primary Dx) Social History Tobacco Use [...] PM EDT) Hepatitis A IgM Nonreactive Nonreactive [facility] Comment:IgM antibodies to NARVAEZ V not detected; does not exclude earlyacute or recovered HAV infection. ~Hepatitis B Surface Antibody REACTIVE Nonreactive [facility] Comment:REACTIVE: > 11.99 mI U/mL Hepatitis B Core Antibody Nonreactive Nonreactive [facility] Hepatitis C Antibody Nonreactive Nonreactive [facility] Comment:Antibodies to HCV no t detected; does not exclude early acuteHCV infection. Hepatitis B Surface Ag Negative Negative [facility] Blood Venous blood specimen / Unknown 02/22/2025 1:54 PM EDT 02/22/2025 2:32 PM EDT us Se Paris MD LAB BLOOD ORDERABLES Final Result [facility] [address] [place] [phone] * Iron And Total Iron Binding Capacity (02/22/2025 1:54 PM EDT) Iron 123 30 - 160 mcg/dL [facility] Total Iron Binding Capacity 283 228 - 428 mcg/dL [facility] Percent Iron Saturation 43 15 - 50 % [facility] Unsaturated Iron Binding 160 ug/dL [facility] Blood Venous blood specimen / Unknown 02/22/2025 1:54 PM EDT 02/22/2025 2:32 PM EDT us Se Paris MD LAB BLOOD ORDERABLES Final Result Performing Organization Address [facility] Co de Phone Number [facility] [address] [place] [phone] * Ferritin (02/22/2025 1:54 PM EDT) Ferritin 141 10 - 250 ng/mL [facility] Blood Venous blood specimen / Unknown 02/22/2025 1:54 PM EDT 02/22/2025 2:32 PM EDT us Se Paris MD LAB BLOOD ORDERABLES Final Result Performing Organization Address [facility] Phone Number [facility] [address] [place] [phone] * Prothrombin Time-INR (02/22/2025 1:54 PM EDT) Prothrombin Time 11.3 10.9 - 12.4 SEC [facility] INTERNATIONAL NORM RATIO 1.0 0.9 - 1.1 [facility] Comment:INTERNATIONAL NORMAL IZED RATIO (INR) [...] BLOOD ORDERABLES Final Result Performing Organization Address [facility] Co de Phone Number [facility] [address] [place] [address] [place] [phone] * Immunoglobulins, Quantitative, IgA, IgG, IgM (02/22/2025 1:54 PM EDT) IMMUNOGLOBULIN G 776 600 - 1540 mg/dL [facility] IMMUNOGLOBULIN A 185 70 - 320 mg/dL [facility] Immunoglobulin M 125 50 - 300 mg/dL [facility] Comment:THIS TEST WAS PERFOR MED AT:[employer] [place] [id number] LIMON MD Blood Venous blood specimen / Unknown 02/22/2025 1:54 PM EDT 02/22/2025 2:32 PM EDT us Se Paris MD LAB BLOOD ORDERABLES Final Result [facility] [address] [place] [phone] documented in this encounter Visit Diagnoses Diagnosis Transaminitis- Primary Nonspecific elevation of levels of transaminase or lactic acid dehydrogenase (LDH) documented in this encounter Care Teams Elder Assistant Relationship Specialty Start Date End Date Emilie Angel MD [address] [place] [address] PCP - General Family Medicine 08/26/19 02/23/25 Reji Miguel CNP [address] [place] [address] PCP - General Family Medicine 02/24/25 documented as of this encounter
--- OUTSIDE RECORDS SUMMARY | 2025-04-20 07:48 | XMS_ITS | Encounter Summary ---
Author Organization [employer] Address [address] [place] [address] 7 [place] [address] Care Team Providers Care Logistics Associate Name Role Phone Emilie Angel MD Primary Care Provider [phone] Reji Miguel CNP Primary Care Provider [phone] Encounter Details Date Type Department Care Team (Late st Contact Info) Description 07/15/[address] [facility] MED & PEDS [address] [place], [place] [phone] Taylor Sauer LPN Social History Tobacco Use [...] on filedocumented in this encounter Care Teams Logistics Associate Relationship Specialty Start Date End Date Emilie Angel MD [address] [place] [address] PCP - General Family Medicine 08/26/19 02/23/25 Reji Miguel CNP [address] [place] [address] PCP - General Family Medicine 02/24/25 documented as of this encounter
--- OUTSIDE RECORDS SUMMARY | 2025-04-20 07:49 | XMS_ITS | Encounter Summary ---
Author Organization [employer] Address [address] [facility] 7t [place] [address] Care Team Providers Care Wet Room Worker Name Role Phone Emilie Angel MD Primary Care Provider [phone] Reji Miguel CNP Primary Care Provider [phone] Reason for Visit * Reason Onset Date Comments Call Back Request 07/06/2023 Encounter Details Date Type Department Care Team ([facility] st Contact Info) Description 07/06/2023 Telephone [facility] MEDICINE [address] [place] [address] Emilie Angel MD [address] [place], [place] [phone] Call Back Request Social History Tobacco Use [...] like to speak with PCP about health public relations writer did confirm there is no concerns at the moment documented in this encounter Plan of Treatment Not on file documented as of this encounter Visit Diagnoses Not on filedocumented in this encounter Care Teams Wet Room Worker Relationship Specialty Start Date End Date Emilie Angel MD [address] [place] [address] PCP - General Family Medicine 08/26/19 02/23/25 Reji Miguel CNP [address] [place] [address] PCP - General Family Medicine 02/24/25 documented as of this encounter
--- OUTSIDE RECORDS SUMMARY | 2025-04-20 07:49 | XMS_ITS | Encounter Summary ---
Author Organization [employer] Address [address] 7t [place] [address] Care Team Providers Care Bench Chemist Name Role Phone Emilie Angel MD Primary Care Provider [phone] Reji Miguel CNP Primary Care Provider [phone] Reason for Visit * Reason Onset Date Comments Blood pressure kit 01/13/2023 Encounter Details Date Type Department Care Team ([facility] st Contact Info) Description 01/13/2023 Telephone [facility] MEDICINE [address] [place] [address] Emilie Angel MD [address] [place], [place] [phone] Blood pressure kit Social History Tobacco Use [...] BP kit to our pharmacy here at [facility]. Thanks. * Telephone Encounter - Danielle Montoya - 01/13/2023 2:01 PM EDT Tc from patient requesting the status of blood pressure kit talked about in the last appt on 01/01/23. documented in this encounter Plan of Treatment Not on file documented as of this encounter Visit Diagnoses Not on filedocumented in this encounter Care Teams Bench Chemist Relationship Specialty Start Date End Date Emilie Angel MD [address] [place] [phone] PCP - General Family Medicine 08/26/19 02/23/25 Reji Miguel CNP [address] [place] [address] PCP - General Family Medicine 02/24/25 documented as of this encounter
--- OUTSIDE RECORDS SUMMARY | 2025-04-20 07:49 | XMS_ITS | Patient Health Record ---
Author Organization [facility] Address [address] [place] [address] Care Team Providers Care Outreach Worker Name Role Phone Emilie Angel Primary Care Provider Unavailabl e Gordon, Allison Unavailable [phone] Tari Morales Unavailable Unavailable Allergies No Known [...] : 14 days 01/17/2022 Active Vitamin D3 5046965 UNIT/GM as directed 01/17/2022 Active Vitamin B6 [...] X ray : Foot, left 3V 10/26/2012 01337-Drzipbvs Plate 03/03/2012 50162-Rnyyxhgg Plate 03/18/2013 59609-Vjnpcnty Plate Each Additional 61876-Qciqkyns Plate Each Additional 07/201100, [id number]/INJECT, JOINT/BURSA 0 10/26/201276207, D0356-ZPGDN/INJECT, JOINT/BURSA 0 01/12/2014 Insurance Providers Payer Name Payer Address Payer Phone Subscriber Number Group Number Insured Name Patient Relationship to Insured Coverage Start Date Coverage End Date A[employer] Medicare Complete [address] [address] [place] [address] [id number] Batsheva Castelan Self - patient is the insured Medical (General) History Medical History History ICD Code sinus conditions liver disease headaches/migraines cholesterol Arthritis breast cancer Surgical History Surgery Date(Month/Year) breast cancer surgery 2009
--- OUTSIDE RECORDS SUMMARY | 2025-04-20 07:49 | XMS_ITS | Encounter Summary ---
Author Organization [employer] Address [address] 7t [place] [address] Care Team Providers Care Project Manager/Team Coach Name Role Phone Emilie Angel MD Primary Care Provider [phone] Reji Miguel CNP Primary Care Provider [phone] Reason for Visit * Reason Onset Date Comments Nurse Triage 05/13/2023 Encounter Details Date Type Department Care Team ([facility] st Contact Info) Description 05/13/2023 Telephone [facility] MED & PEDS [address] [place], [place] [phone] Emilei Angel MD [address] [place] [address] Nurse Triage Social History Tobacco Use Types [...] didn't answer. Left voice message to call [facility] triage line [phone] * Telephone Encounter - Preston Salvador - 05/13/2023 2:48 PM EST Symptom: Urine Symptoms Outcome: Schedule a same-day appointment or talk to a nurse or provider today Reason: Caller denied all higher acuity questions documented in this encounter Plan of Treatment Not on file documented as of this encounter Visit Diagnoses Not on filedocumented in this encounter Care Teams Project Manager/Team Coach Relationship Specialty Start Date End Date Emilie Angel MD [address] [place] [address] PCP - General Family Medicine 08/26/19 02/23/25 Reji Miguel CNP [address] [place] [address] PCP - General Family Medicine 02/24/25 documented as of this encounter
--- OUTSIDE RECORDS SUMMARY | 2025-04-20 07:49 | XMS_ITS | Encounter Summary ---
Author Organization [employer] Address [address] [facility] 7 [place] [address] Care Team Providers Care Bankruptcy Judge Name Role Phone Emilie Angel MD Primary Care Provider Reji Miguel CNP Primary Care Provider [phone] Encounter Details Date Type Department Care Team (Late st Contact Info) Description 05/14/2023 Orders Only [facility] MED & PEDS [address] [place], [place] [phone] Se Paris MD [address] [place] [address] Social History Tobacco Use Types Packs/Day Years [...] catch procedure / Unknown 05/14/2023 05/14/2023 Comment:[facility] - 05/16/2023 12:48 PM EST Urine Culture Report Result Urine Culture > 100,000 cfu/ml Urine Culture Mixed bacterial khadar characteristic of Urine Culture urogenital contamination. Specimen Source: Urine clean catch Se Paris MD LAB MICROBIOLOGY - GENERAL ORDERABLES Final Result [facility] [address] [place] [address] [phone] documented in this encounter Visit Diagnoses Not on filedocumented in this encounter Care Teams Bankruptcy Judge Relationship Specialty Start Date End Date Emilie Angel MD [address] [place] [address] PCP - General Family Medicine 08/26/19 02/23/25 Reji Miguel CNP [address] [place] [address] PCP - General Family Medicine 02/24/25 documented as of this encounter
--- OUTSIDE RECORDS SUMMARY | 2025-04-20 07:49 | XMS_ITS | Encounter Summary ---
Author Organization [employer] Address [address] [facility] 7 [place] [address] Care Team Providers Care General Ledger Bookkeeper Name Role Phone Emilie Angel MD Primary Care Provider [phone] Reji Miguel CNP Primary Care Provider [phone] Encounter Details Date Type Department Care Team (Late st Contact Info) Description 01/14/2023 Orders Only [facility] MED & PEDS [address] [place], [place] [phone] Se Paris MD [address] [place] [address] Blood pressure check (Primary Dx) Social History [...] hypertension documented in this encounter Care Teams General Ledger Bookkeeper Relationship Specialty Start Date End Date Emilie Angel MD [address] [place] [address] PCP - General Family Medicine 08/26/19 02/23/25 Reji Miguel CNP [address] [place], [place] [phone] PCP - General Family Medicine 02/24/25 documented as of this encounter
== END 2025-04-20 07:46 | disposition home or self-care (01) ==
LOC: HO.US 07:45
PROVIDERS: Visit Provider Internal Medicine
DX: R74.01 Elevation of levels of liver transaminase levels (principal)
CPT/HCPCS: 76700; 76981

== ENCOUNTER → 2025-04-20 07:45 | Outpatient (BNV) | payer MEDICARE, SELFPAY | PROVIDERS: Visit Provider Radiology Diagnostic Ultrasound | DX: K76.0 Fatty (change of) liver, not elsewhere classified (principal) | CPT/HCPCS: 76700 ==